=== PATIENT | female | born 2000 | race Two or more races ===

== ENCOUNTER → 2022-05-05 14:04 | Outpatient (BNVA) | payer OTHER, SELFPAY | PROVIDERS: PCP Family Medicine; Visit Provider Student in an Organized Health Care Education/Training Program | DX: M25.541 Pain in joints of right hand (principal); M79.18 Myalgia, other site | CPT/HCPCS: 99202 ==

== ENCOUNTER → 2022-07-09 09:35 | Outpatient (BNVA) | payer OTHER, SELFPAY | PROVIDERS: PCP Family Medicine; Visit Provider Student in an Organized Health Care Education/Training Program | DX: M25.542 Pain in joints of left hand (principal); L40.50 Arthropathic psoriasis, unspecified | CPT/HCPCS: 99212 ==

== ENCOUNTER 2023-03-19 16:02 | Outpatient (AMB) | payer OTHER, SELFPAY ==
[2023-03-19 16:06] VITALS: BP 144/82; PULSE 88; TEMP 36.9; O2SAT 98; BMI 48.7
--- NOTE | 2023-03-19 16:06 | MHC.OFFVIS ---
Intake Vital Signs 03/19/23 16:06 Height 5 ft 7 in Weight 310 lb 13.628 oz BMI 48.7 BP 144/82 H Blood Pressure Location Rt brachial Position Sitting Pulse 88 Pulse Source Pulse Oximeter Temp 98.4 F Temp Source Skin Pulse Oximetry (%) 98 Intake Visit Reasons: polyarthralgia Intake Note: Pt seen today for polyarthralgia. Did labs at [place]. States she has more arthritis in spine History Department Chair Required: No Accompanied by: Self / Same As Patient Allergies ketorolac [From Toradol] Adverse Reaction (Intermediate, Verified 03/19/23 16:17) Rash Medication List - Last Reconciled 03/19/23 by Marah De Leon MD albuterol sulfate 90 mcg/actuation 2 puffs inhalation Q4H PRN aripiprazole 15 mg PO DAILY cholecalciferol (vitamin D3) (Vitamin D3) PO dextroamphetamine-amphetamine 10 mg 1 tab PO BID ferrous sulfate 325 mg PO DAILY fluticasone propionate 110 mcg/actuation (Flovent HFA) 0 mcg inhalation levonorgestrel-ethinyl estrad 0.15 mg-30 mcg (91) 1 tab PO DAILY levothyroxine 75 mcg PO DAILY norgestimate-ethinyl estradiol 0.18/0.215/0.25 mg-35 mcg (28) (Tri-Estarylla) 1 tab PO DAILY pantoprazole 40 mg PO DAILY sertraline 150 mg PO DAILY sucralfate 1 g PO BID HPI HPI Comments History of Present Illness Details Patient returns for follow-up. She states that last month she was prescribed a prednisone taper starting at 30 mg daily for her arthritis symptoms. She states that it gave her 100% relief especially when she was taking the 30 mg. She continues to have intermittent pain in her knees, fingers, she also gets sharp pain in her muscles. Initial history: This is a 21-year-old female with a past medical history of anxiety, depression, morbid obesity, allergic rhinitis, hypothyroidism, PTSD, SVT, patellofemoral syndrome, rosacea presents for evaluation of inflammatory symptoms and diffuse pain. Condition started about 2 years ago with pain in multiple areas including her back, arms, knees. She also reports easy bruising and random rashes of her lower extremities. She has difficulty keeping her arms up while showering so she only showers once a week. She has fatigue and weakness. She was evaluated by pain management for her back pain and breast reduction surgery was suggested. Patient has an appointment with a plastic surgeon [facility] Medical History (Updated 03/19/23 @ 16:56 by Marah De Leon MD) Allergic rhinitis Anxiety Asthma Depression Hypothyroid Iron deficiency Joint pain in fingers of left hand Joint pain in fingers of right hand Morbid obesity Patellofemoral syndrome Psoriatic arthritis PTSD (post-traumatic stress disorder) Rosacea SVT (supraventricular tachycardia) Surgical History Hx of colonoscopy Family History (Updated 03/19/23 @ 16:51 by Marah De Leon MD) Mother Diabetes Arthritis Psoriasis Father Hypertension Maternal Grandmother Colon cancer Maternal Grandfather Myocardial infarction Hypertension Social History Alcohol intake: current Alcohol intake frequency: holidays/special occasions only Patient Tobacco Use Status: Former Tobacco user Tobacco use type: Smokeless Tobacco e-Cigarette/Vaping Use: Currently Using Current occupational status: disabled Review of Systems [facility] Reports back pain, Reports myalgias, Reports arthralgias, Reports joint swelling and Reports stiffness Skin/Breast Reports unusual bruising Physical Exam Vital Signs: Last Vital Signs Temp 98.4 F 03/19/23 16:06 Pulse 88 03/19/23 16:06 BP 144/82 H 03/19/23 16:06 Pulse Ox 98 03/19/23 16:06 BMI result Body Mass Index 48.7 Const General: cooperative, healthy appearing and comfortable Nutritional Appearance: obese morbidly obese Orientation/consciousness: patient oriented x3 Limitations: no limitations HEENT Head: Yes normocephalic and Yes atraumatic Resp Effort & Inspection: normal respiratory effort and able to speak in complete sentences Skin General skin exam: no rashes or lesions noted Neuro General: patient oriented x3 Extrem Other: Left middle and ring finger extensor tendon tenderness with no swelling Right wrist pain with full flexion Bilateral elbow pain with full flexion extension Bilateral knee warmth and pain with full flexion and extension No ankle swelling or tenderness Bilateral dorsal foot tenderness without swelling Negative MTP tenderness, negative MTP squeeze test bilaterally Few fibromyalgia tender points Results Reviewed Results Reviewed: iron level 44 (44-150) TIBC 438 (250-450) Iron saturation 10% (15-50%) Ferritin 20 (8-252) WBC 13.1 Hemoglobin 13.1 MCV 91.8 RDW 12.7 Platelet count 307 Antithyroid peroxidase antibody 33 <60 Free T4 1.25 (0.7-1.8) Normal pelvic ultrasound CRP 0.9 (<0.5) ESR 23 (0-20) Kathryn 1 antibody 3 <20 Anti DNA 31 (<200) CPK 88 (22 - 269) Lyme screen negative RF/ccp negative Uric acid 5.4 CHAZ negative Sterling/CONSTRUCTION ENGINEER/SSA/SSB/C3/C4 all negative/normal Assessment & Plan Assessment & Plan (1) Psoriatic arthritis: Code(s): L40.50 - Arthropathic psoriasis, unspecified Plan: This is a? 22-year-old female presents for evaluation of diffuse joint pain.? Comprehensive serology is unremarkable, she has mildly elevated inflammatory markers. On exam patient has multiple tender joints, symptoms dramatically improved with prednisone taper. Her mother has psoriasis. Clinical picture consistent with new onset psoriatic arthritis. Will need to start DMARDs. Discussed risks and benefits of methotrexate. Patient agreed to proceed. Start methotrexate 15 mg once weekly for 2 weeks then 20 mg weekly. Folic acid 1 mg daily Hepatitis panel - -ve 2021. Will check a T spot Labs before next visit in 2 months (2) terminal operations supervisor methotrexate user: Code(s): Z79.631 - terminal operations supervisor (current) use of antimetabolite agent Plan: Side effects of methotrexate were discussed with the patient in detail including oral ulcers, elevated LFTs, abdominal discomfort, and possible pancytopenia is. Will monitor patient for side effects with frequent lab work. Advised patient to take folic acid daily to prevent complications of methotrexate. Patient drinks 3-4 alcoholic beverages in a month. Is not currently sexually active and no plans on getting any time soon (3) Fibromyalgia, primary: Code(s): M79.7 - Fibromyalgia Plan: Discussed management of fibromyalgia with patient. Is a noninflammatory, non-autoimmune central afferent processing disorder leading to a diffuse pain syndrome. Patient follows up regularly with a psychiatrist and psychotherapist. Advised patient to consider a referral for a sleep study from her PCP to evaluate for underlying DUSTIN. Discuss CBT for sleep with psychotherapist. Patient goes to the gym once a week and does weightlifting and cardio exercises for 90 minutes. Advised patient to try to increase the frequency of her exercise. Plan I spent 30 minutes reviewing patient's chart, evaluating patient, ordering diagnostic workup, counseling patient and documenting in the chart Orders: Orders Comprehensive Met. Panel 2 Months L40.50 - Arthropathic psoriasis, unspecified C Reactive Protein 2 Months L40.50 - Arthropathic psoriasis, unspecified Complete Blood Count Auto Diff 2 Months L40.50 - Arthropathic psoriasis, unspecified Erythrocyte Sedimentation Rate 2 Months L40.50 - Arthropathic psoriasis, unspecified T Spot TB 2 Months Z11.7 - Encounter for testing for latent tuberculosis infection Medications: New methotrexate sodium Take 6 tabs by mouth once weekly for 2 weeks then 8 tabs once weekly 64 tabs 0RF folic acid 1 mg PO DAILY 90 tabs 1RF Coding Level of Care Code Est Pt Level 4 (05496) Diagnoses Psoriatic arthritis L40.50 MCC methotrexate user Z79.631 Fibromyalgia, primary M79.7
== END 2023-03-19 16:45 | disposition home or self-care (01) ==
PROVIDERS: PCP Family Medicine; Visit Provider Student in an Organized Health Care Education/Training Program
DX: L40.50 Arthropathic psoriasis, unspecified (principal); Z79.631 Long term (current) use of antimetabolite agent; M79.7 Fibromyalgia
CPT/HCPCS: 99214

== ENCOUNTER → 2023-03-19 16:02 | Outpatient (BNVA) | payer OTHER, SELFPAY | PROVIDERS: PCP Family Medicine; Visit Provider Student in an Organized Health Care Education/Training Program | DX: L40.50 Arthropathic psoriasis, unspecified (principal); M79.7 Fibromyalgia; Z79.631 Long term (current) use of antimetabolite agent | CPT/HCPCS: 99212 ==

== ENCOUNTER 2023-04-24 10:40 | Outpatient (REF) | payer OTHER, SELFPAY ==
[2023-04-24 10:57] LABS: MANUAL DIFF FLAG NO
[2023-04-24 11:11] LABS: Basophils Absolute Auto 0.1 X10*3/uL (0.0-0.2); Basophils Percent Auto 0.7 % (0-2); Eosinophils Absolute Auto 0.2 X10*3/uL (0.0-0.4); Eosinophils Percent Auto 3.1 % (0-4); Imm Gran Abs Auto 0.02 X10*3/uL (0.00-0.03); Imm Gran Pct Auto 0.3 % (0.0-0.4); Lymphocytes Percent Auto 30.1 % (20-40); Mean Corpuscular HGB Conc 32.5 g/dl (31.0-35.0); Mean Corpuscular Hemoglobin 30.3 pg (27.0-33.0); Mean Corpuscular Volume 93.2 fL (80.0-98.0); Mean Platelet Volume 10.8 fL (9.4-12.3); Monocytes Absolute Auto 0.4 X10*3/uL (0.1-1.2); Monocytes Percent Auto 6.3 % (2-11); Neutrophils Percent Auto 59.5 % (45-73); Platelet Count 231 X10*3/uL (160-400); Red Blood Count 4.29 X10*6/uL (4.20-5.50); Red Cell Distribution Width 12.1 % (11.0-16.0); White Blood Count 6.7 X10*3/uL (4.8-10.8)
[2023-04-24 11:51] LABS: Alanine Aminotransferase 16 U/L (0-31); Albumin Level 3.8 g/dL (3.5-5.0); Alkaline Phosphatase 67 U/L (39-117); Anion Gap 16 (12-20); Aspartate Amino Transferase 14 U/L (5-31); Bilirubin Total 0.3 mg/dL (0.0-1.0); Blood Urea Nitrogen 11 mg/dL (9-16); C Reactive Protein 2.03 mg/dL (< or = 0.50); Calcium 8.8 mg/dL (8.4-10.2); Carbon Dioxide 19 mmol/L (22-29); Chloride 108 mmol/L (96-108); Estimated Glomerular Filt Rate > 60; Glucose Random 105 mg/dL (60-115); Potassium 4.2 mmol/L (3.3-5.1); Sodium 139 mmol/L (135-145); Total Protein 6.8 g/dL (6.5-8.0)
[2023-04-24 12:12] LABS: Erythrocyte Sedimentation Rate 38 MM/HR (0-20)
== END 2023-04-24 10:41 | disposition home or self-care (01) ==
LOC: HO.LAB 10:40
PROVIDERS: PCP Family Medicine; Visit Provider Student in an Organized Health Care Education/Training Program
DX: L40.50 Arthropathic psoriasis, unspecified (principal)
CPT/HCPCS: 36415; 80053; 85025; 85652; 86140

== ENCOUNTER 2023-08-04 09:49 | Outpatient (REF) | payer OTHER, SELFPAY ==
[2023-08-04 10:05] LABS: MANUAL DIFF FLAG NO
[2023-08-04 10:51] LABS: Basophils Absolute Auto 0.1 X10*3/uL (0.0-0.2); Basophils Percent Auto 0.6 % (0-2); Eosinophils Absolute Auto 0.4 X10*3/uL (0.0-0.4); Eosinophils Percent Auto 5.5 % (0-4); Hematocrit 40.1 % (37.0-47.0); Hemoglobin 13.3 g/dl (12.0-16.0); Imm Gran Abs Auto 0.03 X10*3/uL (0.00-0.03); Imm Gran Pct Auto 0.4 % (0.0-0.4); Lymphocytes Absolute Auto 3.1 X10*3/uL (1.2-4.9); Lymphocytes Percent Auto 38.6 % (20-40); Mean Corpuscular HGB Conc 33.2 g/dl (31.0-35.0); Mean Corpuscular Hemoglobin 31.3 pg (27.0-33.0); Mean Corpuscular Volume 94.4 fL (80.0-98.0); Mean Platelet Volume 10.8 fL (9.4-12.3); Monocytes Absolute Auto 0.6 X10*3/uL (0.1-1.2); Monocytes Percent Auto 7.1 % (2-11); Neutrophils Absolute Auto 3.9 x10*3/uL (2.0-8.3); Neutrophils Percent Auto 47.8 % (45-73); Platelet Count 277 X10*3/uL (160-400); Red Blood Count 4.25 X10*6/uL (4.20-5.50); Red Cell Distribution Width 12.3 % (11.0-16.0)
[2023-08-04 11:24] LABS: Alanine Aminotransferase 18 U/L (0-31); Albumin Level 3.7 g/dL (3.5-5.0); Alkaline Phosphatase 81 U/L (39-117); Anion Gap 14 (12-20); Aspartate Amino Transferase 14 U/L (5-31); Bilirubin Total 0.1 mg/dL (0.0-1.0); Blood Urea Nitrogen 10 mg/dL (9-16); C Reactive Protein 1.68 mg/dL (< or = 0.50); Carbon Dioxide 19 mmol/L (22-29); Chloride 111 mmol/L (96-108); Estimated Glomerular Filt Rate > 60; Glucose Random 94 mg/dL (60-115); Sodium 140 mmol/L (135-145); Total Protein 6.8 g/dL (6.5-8.0)
[2023-08-04 11:29] LABS: Erythrocyte Sedimentation Rate 25 MM/HR (0-20)
[2023-08-04 11:49] LABS: HBS Num1 1.78 mIU/mL (0-7.99); HBc Num1 0.07 S/CO (0.00-0.79); HBsAGNum1 0.19 S/CO (0.00-0.99); Hepatitis A Antibody IgM 0.15 Index (0-0.79); Hepatitis B Core Antibody Nonreactive (Nonreactive); Hepatitis B Surface Antigen Negative (Negative); ~HepC Num1 0.06 S/CO (0.00-0.79); ~Hepatitis A Antibody IgM Nonreactive (Nonreactive); ~Hepatitis B Surface Antibody NONREACTIVE (Nonreactive); ~Hepatitis C Antibody Nonreactive (Nonreactive)
[2023-08-06 22:33] LABS: TS Negative Control Passed; TS Panel A 0; TS Panel B 0; TS Positive Control Passed; TSpotTB Negative (Negative)
[2023-08-08 16:28] LABS: HLA B27 Negative (Negative)
== END 2023-08-04 09:50 | disposition home or self-care (01) ==
LOC: HO.LAB 09:49
PROVIDERS: PCP Family Medicine; Visit Provider Student in an Organized Health Care Education/Training Program
DX: L40.50 Arthropathic psoriasis, unspecified (principal); M45.9 Ankylosing spondylitis of unspecified sites in spine; Z11.7 Encounter for testing for latent tuberculosis infection; Z11.59 Encounter for screening for other viral diseases; Z79.631 Long term (current) use of antimetabolite agent
CPT/HCPCS: 36415; 80053; 85025; 85652; 86140; 86481; 86704; 86706; 86709; 86803; 86812; 87340

== ENCOUNTER 2023-10-18 14:53 | Outpatient (AMB) | payer OTHER, SELFPAY ==
--- NOTE | 2023-10-18 14:55 | MHC.OFFVIS ---
Intake Vital Signs 10/18/23 15:02 Height 5 ft 7 in Weight 347 lb 0.121 oz BMI 54.3 BP 128/64 Blood Pressure Location Lt radial Position Sitting Pulse 109 H Pulse Source Pulse Oximeter Temp 99.2 F Temp Source Skin Pulse Oximetry (%) 99 Oxygen Delivery Method Room Air Intake Visit Reasons: PsA Intake Note: Patient last seen 03/19/23 presents today for follow up and test results. Pt would like to discuss other PsA tx due to difficulty getting labs done. Rn Clinical Research Required: No Accompanied by: Self / Same As Patient Allergies ketorolac [From Toradol] Adverse Reaction (Intermediate, Verified 10/18/23 14:56) Rash Medication List - Last Reconciled 10/18/23 by Marah De Leon MD albuterol sulfate 90 mcg/actuation 2 puffs inhalation Q4H PRN aripiprazole 15 mg PO DAILY cholecalciferol (vitamin D3) (Vitamin D3) PO dextroamphetamine-amphetamine 10 mg 1 tab PO BID ferrous sulfate 325 mg PO DAILY fluticasone propionate 110 mcg/actuation (Flovent HFA) 0 mcg inhalation levonorgestrel-ethinyl estrad 0.15 mg-30 mcg (91) 1 tab PO DAILY levothyroxine 75 mcg PO DAILY norgestimate-ethinyl estradiol 0.18/0.215/0.25 mg-35 mcg (28) (Tri-Estarylla) 1 tab PO DAILY pantoprazole 40 mg PO DAILY sertraline 150 mg PO DAILY sucralfate 1 g PO BID HPI HPI Comments History of Present Illness Details 23-year-old female with suspected psoriatic arthritis returns for follow-up. She states that she took methotrexate for 2 months until she ran out. She states that she could not get the blood work done as she was told that her liver enzymes need to be done in the morning and she does not have a ride to do blood work in the morning. She would like to discuss hypermobility. She states that she feels hypermobile. She does not recall any specific joint dislocation but she feels that her hip pops in and out of place. She gets triggering of her thumbs and index fingers bilaterally at least once a week. Initial history: This is a 21-year-old female with a past medical history of anxiety, depression, morbid obesity, allergic rhinitis, hypothyroidism, PTSD, SVT, patellofemoral syndrome, rosacea presents for evaluation of inflammatory symptoms and diffuse pain. Condition started about 2 years ago with pain in multiple areas including her back, arms, knees. She also reports easy bruising and random rashes of her lower extremities. She has difficulty keeping her arms up while showering so she only showers once a week. She has fatigue and weakness. She was evaluated by pain management for her back pain and breast reduction surgery was suggested. Patient has an appointment with a plastic surgeon [facility] Medical History (Updated 10/18/23 @ 15:26 by Marah De Leon MD) Joint pain in fingers of left hand Psoriatic arthritis Joint pain in fingers of right hand Rosacea Allergic rhinitis Iron deficiency Patellofemoral syndrome SVT (supraventricular tachycardia) PTSD (post-traumatic stress disorder) Morbid obesity Depression Anxiety Asthma Hypothyroid Surgical History Hx of colonoscopy Family History Mother Diabetes Arthritis Psoriasis Father Hypertension Maternal Grandmother Colon cancer Maternal Grandfather Myocardial infarction Hypertension Social History Alcohol intake: current Alcohol intake frequency: holidays/special occasions only Patient Tobacco Use Status: Former Tobacco user Tobacco use type: Smokeless Tobacco e-Cigarette/Vaping Use: Currently Using Current occupational status: disabled Review of Systems [facility] Reports back pain, Reports myalgias, Reports arthralgias, Reports joint swelling and Reports stiffness Skin/Breast Reports unusual bruising Physical Exam Const General: cooperative, healthy appearing and comfortable Nutritional Appearance: obese morbidly obese Orientation/consciousness: patient oriented x3 Limitations: no limitations HEENT Head: Yes normocephalic and Yes atraumatic Resp Effort & Inspection: normal respiratory effort and able to speak in complete sentences Skin Other: Erythematous cheeks bilaterally A square shaped patch on medial aspect of right rocha measuring approximately 3 x 3 cm. Psoriasis versus eczema Neuro General: patient oriented x3 Extrem Other: Triggering of right 5th finger No flexor or extensor tendon tenderness today Left wrist pain with full flexion Bilateral hyperextension of both elbows Positive thumb sign bilaterally Bilateral genu valgus Patient able to put her palms on the floor with knees straight No ankle swelling or tenderness Bilateral dorsal foot tenderness without swelling Negative MTP tenderness, negative MTP squeeze test bilaterally Few fibromyalgia tender points Results Reviewed Results Reviewed: iron level 44 (44-150) TIBC 438 (250-450) Iron saturation 10% (15-50%) Ferritin 20 (8-252) WBC 13.1 Hemoglobin 13.1 MCV 91.8 RDW 12.7 Platelet count 307 Antithyroid peroxidase antibody 33 <60 Free T4 1.25 (0.7-1.8) Normal pelvic ultrasound CRP 0.9 (<0.5) ESR 23 (0-20) Kathryn 1 antibody 3 <20 Anti DNA 31 (<200) CPK 88 (22 - 269) Lyme screen negative RF/ccp negative Uric acid 5.4 CHAZ negative Sterling/COMPUTER SYSTEMS AUDITOR/SSA/SSB/C3/C4 all negative/normal Assessment & Plan Assessment & Plan (1) Psoriatic arthritis: Code(s): L40.50 - Arthropathic psoriasis, unspecified Plan: This is a? 23-year-old female presents for evaluation of diffuse joint pain.? Comprehensive serology is unremarkable, she has mildly elevated inflammatory markers. On exam patient has multiple tender joints, symptoms dramatically improved with prednisone taper. Her mother has psoriasis. Last visit I prescribed methotrexate, patient stated that she could not get blood work done as she was told it needs to be done in the a.m. and she does not have a ride in the a.m. she took methotrexate for 1-2 months and does not feel that it provided much benefit. At this point, I can not prescribe DMARDs without monitor labs. Her symptoms today are quite minimal, there are no swollen joints. Follow-up as needed (2) Trigger finger: Code(s): M65.30 - Trigger finger, unspecified finger Qualifiers: Trigger finger location: unspecified finger Laterality: unspecified laterality Qualified Code(s): M65.30 - Trigger finger, unspecified finger Plan: Triggering of bilateral thumbs and bilateral index fingers. Discussed nature of trigger finger. Referred patient to occupational therapy. Discussed ring splints (3) Hypermobility syndrome: Code(s): M35.7 - Hypermobility syndrome Plan: Referred to PT Plan I spent 25 minutes reviewing patient's chart, evaluating patient, placing orders, counseling patient and documenting in the chart Orders: Orders PT Evaluation and Treatment Today M35.7 - Hypermobility syndrome OT Evaluation and Treatment Today M65.30 - Trigger finger, unspecified finger Coding Level of Care Code Est Pt Level 4 (65549) Diagnoses Psoriatic arthritis L40.50 Trigger finger, unspecified finger, unspecified laterality M65.30 Trigger finger location: unspecified finger Laterality: unspecified laterality Hypermobility syndrome M35.7
[2023-10-18 15:02] VITALS: BP 128/64; PULSE 109; TEMP 37.3; O2SAT 99; BMI 54.3
== END 2023-10-18 15:28 | disposition home or self-care (01) ==
PROVIDERS: PCP Family Medicine; Visit Provider Student in an Organized Health Care Education/Training Program
DX: L40.50 Arthropathic psoriasis, unspecified (principal); M65.30 Trigger finger, unspecified finger; M35.7 Hypermobility syndrome
CPT/HCPCS: 99214

== ENCOUNTER → 2023-10-18 14:53 | Outpatient (BNVA) | payer OTHER, SELFPAY | PROVIDERS: PCP Family Medicine; Visit Provider Student in an Organized Health Care Education/Training Program | DX: M65.30 Trigger finger, unspecified finger (principal); M35.7 Hypermobility syndrome; L40.50 Arthropathic psoriasis, unspecified | CPT/HCPCS: 99212 ==

== ENCOUNTER 2025-03-27 10:04 | Outpatient (AMB) | payer OTHER, SELFPAY ==
--- NOTE | 2025-03-27 10:13 | A.OFFVIS_ITS ---
Vital Signs 03/27/25 10:17 Height 5 ft 7 in Weight 350 lb 1.505 oz BMI 54.8 BP 130/100 H Blood Pressure Location Rt brachial Position Sitting Pulse 108 H Pulse Source Pulse Oximeter Pulse Oximetry (%) 99 Oxygen Delivery Method Room Air Intake Visit Reasons: PsA Intake Note: Patient presents today for an PSa follow up. Accompanied by: Self / Same As Patient Allergies ketorolac (From Toradol) Adverse Reaction (Intermediate, Verified 03/27/25 10:18) Rash Medication List - Last Reconciled 03/27/25 by Rashid Mcknight MD albuterol sulfate 90 mcg/actuation 2 puffs inhalation Q4H PRN cholecalciferol (vitamin D3) (Vitamin D3) PO eszopiclone (Lunesta) 1 mg PO BEDTIME ferrous sulfate 325 mg PO DAILY fluticasone propionate 110 mcg/actuation (Flovent HFA) 0 mcg inhalation fluvoxamine 100 mg PO BEDTIME gabapentin 300 mg PO BEDTIME levonorgestrel-ethinyl estrad 0.15 mg-30 mcg (91) 1 tab PO DAILY levothyroxine 75 mcg PO DAILY pantoprazole 40 mg PO DAILY sertraline 150 mg PO DAILY HPI HPI PsA: Details: She was dx with left buttocks shingles 3 weeks ago. Woke up with neck pain radiating to mid back. She remembered hyperextending left knee at night. She has pain with clicking in left knee for the last 3 days. avoid NSAIDs due to GERD and HH on PPI. No swollen joint. Hypermobility in wrists, fingers and knees. Feels like hips dislocate when she turns over in bed. She can pop it back in place with moving her body. Denies uterus prolapse, aneurysm, valve issues. She was diagnosed with lumbar disc narrowing. She was referred to PT by PCP. Since starting gabapentin prescribed by PCP she has noted improvement in her pain with improved function. She is not taking any Tylenol at this time. [facility] Medical History Fibromyalgia Shingles Joint pain in fingers of left hand Psoriatic arthritis Joint pain in fingers of right hand Rosacea Allergic rhinitis Iron deficiency Patellofemoral syndrome SVT (supraventricular tachycardia) PTSD (post-traumatic stress disorder) Morbid obesity Depression Anxiety Asthma Hypothyroid Surgical History Hx of colonoscopy Family History Mother Diabetes Arthritis Psoriasis Father Hypertension Maternal Grandmother Colon cancer Maternal Grandfather Myocardial infarction Hypertension Social History Alcohol intake: current Alcohol intake frequency: holidays/special occasions only Patient Tobacco Use Status: Former Tobacco user Tobacco use type: Smokeless Tobacco e-Cigarette/Vaping Use: Currently Using Current occupational status: disabled Physical Exam Vital Signs: Last Vital Signs Pulse 108 H 03/27/25 10:17 BP 130/100 H 03/27/25 10:17 Pulse Ox 99 03/27/25 10:17 Oxygen Delivery Method Room Air 03/27/25 10:17 BMI result Body Mass Index 54.8 Const Other: General: Comfortable CVS: RRR Respiratory: clear to auscultation bilaterally. Good respiratory effort Skin: No lesions seen MSK: No tender joints in upper extremities. Normal range of motion of upper extremities. Valgus deformity bilateral knees. Tender to palpate left knee with knee flexion 90 degrees. No crepitus palpated. Left knee is warm. No effusion palpated. Bilateral hip external rotations are normal. No synovitis present. Passive dorsiflexion and hyperextension of the fifth MCP joint beyond 90? 1 1 2. Passive apposition of the thumb to the flexor aspect of t he forearm 1 1 3. Passive hyperextension of the elbow b eyond 10? 0 0 4. Passive hyperextension of the knee beyond 10? 1 1 5. Active forward flexion of the trunk w ith the knees fully extended so that the palms of the hands rest flat on the floor 1 1 TOTAL 8 Assessment & Plan Assessment & Plan (1) Hypermobile Reddy-Danlos syndrome: Comment: Discussed diagnosis and management. Genetic testing for hypermobile EDS does not exist. At this time I am not concerned for more serious forms of EDS. we discussed importance of rehabilitation. Code(s): Q79.62 - Hypermobile Reddy-Danlos syndrome Category: Medical Plan: PT ordered for rehabilitation She will take Tylenol 650 mg 1-2 tablets b.i.d. PRN Baseline labs prior to starting Tylenol ordered Return to clinic in 3 months (2) Lumbar spondylosis: Code(s): M47.816 - Spondylosis without myelopathy or radiculopathy, lumbar region Category: Medical Plan: PT ordered (3) Knee pain, left: Comment: Acute onset. She has clinical signs of early osteoarthritis with valgus deformity. Hypermobile EDS predisposes individuals to early-onset osteoarthr itis. Code(s): M25.562 - Pain in left knee Category: Medical Qualifiers: Chronicity: acute Qualified Code(s): M25.562 - Pain in left knee Plan: Left knee x-ray ordered Start Tylenol 650 mg 1-2 tablets twice a day Baseline labs prior to starting Tylenol ordered Avoid oral NSAIDs due to history of uncontrolled GERD and hiatal hernia on PPI PT ordered for knee strengthening We discussed importance of bracing for improved stability. She will try compression sleeve. I will hold off in prescribing hinged brace at this visit Return to clinic in 3 months (4) Psoriasis: Comment: History of psoriasis affecting right rocha. Resolved. There are no clinical signs of psoriatic arthritis at this time. Code(s): L40.9 - Psoriasis, unspecified Category: Medical Plan: Monitor clinically for psoriatic arthritis Orders: Orders Alanine Aminotransferase Today M35.7 - Hypermobility syndrome Creatinine Today M35.7 - Hypermobility syndrome XR knee LT 2V Today Q79.62 - Hypermobile Reddy-Danlos syndrome PT Evaluation and Treatment Today M25.562 - Pain in left knee, M47.816 - Spondylosis without myelopathy or radiculopathy, lumbar region, Q79.62 - Hyperm obile Reddy-Danlos syndrome, S73.004A - Unspecified dislocation of right hip, initial encounter, S73.005A - Unspecified dislocation of left hip, initial encounter Aspartate Amino Transferase Today M35.7 - Hypermobility syndrome Coding Level of Care Code Est Pt Level 4 (43172) Complex EM visit Add On G2211 Diagnoses Hypermobile Reddy-Danlos syndrome Q79.62 Lumbar spondylosis M47.816 Acute pain of left knee M25.562 Chronicity: acute Psoriasis L40.9
[2025-03-27 10:17] VITALS: BP 130/100; PULSE 108; O2SAT 99; BMI 54.8
--- OUTSIDE RECORDS SUMMARY | 2025-03-27 11:27 | XMS_ITS | Clinical Summary ---
Author Organization [facility] Facility Address [address] [place] [id number] Care Team Providers Care Finance Intern Name Role Phone Unavailable Primary Care Provider Unavailabl e Social History Tobacco Use Types Packs/Day Years Used Date Smoking Tobacco: Never Assessed Comments Unknown Sex and Gender Information Value Date Recorded Sex Assigned at Not on file Legal Sex Female 2:19 PM EDT Gender Identity Not on file Sexual Orientation Not on file Plan of Treatment Health Maintenance Due Date Last Done Comments Hepatitis B Vaccine (1 of 3 - 19+ 3-dose series) 2019 Influenza Vaccine (#1) 2025 Pneumococcal Vaccine: Peds ( 0 to 5 Years) and At-Risk Patients (6 to 49 Years) Aged Out No longer eligible b ased on patient's age to complete this topic [place] [address] [place] [address] Medicaid
--- OUTSIDE RECORDS SUMMARY | 2025-03-27 11:27 | XMS_ITS | Encounter Summary ---
Author Organization [facility] Address [address] [place], [place] [id number] Phone Care Team Providers Care Art Specialist Name Role Phone Jessica Goss DO Primary Care Provider Unavaila ble Reason for Visit * Reason Comments Med Refill Encounter Details Date Type Department Care Team ([facility] st Contact Info) Description 04/09/2018 Refill [facility] [address] [facility] [place] [address] Cheryl Walters MD [address] [place] [address] Dysuria Social History Tobacco Use Types Packs/Day Years Used Date Smoking Tobacco: Every Day Smokeless Tobacco: Current Comments:marijuanna Comments Unknown Sex and Gender Information Value Date Recorded Sex Assigned at Not on file Legal Sex Female 6:36 PM EDT Gender Identity Not on file Sexual Orientation Not on file documented as of this encounter Plan of Treatment Not on file documented as of this encounter Visit Diagnoses Diagnosis Dysuria documented in this encounter Care Teams Art Specialist Relationship Specialty Start Date End Date Jessica Goss DO PCP - General Pediatrics 02/09/19 documented as of this encounter
--- OUTSIDE RECORDS SUMMARY | 2025-03-27 11:27 | XMS_ITS | Clinical Summary ---
Author Organization [facility] Address [address] [place] [address] Care Team Providers Care Blow Molding Machine Tender Name Role Phone Benjamin Hahn MD Primary Care Provider [phone] Allergies Active Allergy Reactions Criticality Noted Date Comments Ketorolac Tromethamine Rash Low 06/30/2022 Medications Medication Sig Dispensed Refills Start Date End Date Status Norgestim-Eth Estrad Triphasic 0.18/0.215/0.25 MG-25 MCG TABS Take by mouth daily. 0 Active vitamin D3 (cholecalciferol) 10 MCG (400 UNIT) tablet Take by mouth daily. 0 Active sucralfate (CARAFATE) 1 g tablet Take 1 tablet (1 g total) by mouth 2 (two) times a day before breakfast and dinner. Take on an empty stomach 0 Active sertraline (ZOLOFT) 100 MG tablet Take 2 tablets (200 mg total) by mouth daily. 0 Active levothyroxine (SYNTHROID) tablet 50 mcg Take 1 tablet (50 mcg total) by mouth every morning on an empty stomach. 0 Active Cholecalciferol 1.25 MG (98274 UT) TABS Take by mouth. 4 Tabs once a week 0 Active ferrous sulfate 325 (65 FE) MG tablet Take 1 tablet (325 mg total) by mouth every morning with breakfast. 0 Active Albuterol Sulfate, sensor, (ProAir Digihaler) 108 (90 Base) MCG/ACT AEPB Inhale into the lungs. 2 puffs into lungs every 4 hours as needed for cough or wheezing. 0 Active Active Problems Problem Noted Date Diagnosed Date Easy bruising 07/03/2022 Social History Tobacco Use Types Packs/Day Years Used Date Smoking Tobacco: Never Assessed Sex and Gender Information Value Date Recorded Sex Assigned at Not on file Gender Identity Not on file Sexual Orientation Not on file Job Start Date Occupation Industry Not on file Not on file Not on file Last Filed Vital Signs Vital Sign Reading Time Taken Comments Blood Pressure 143/75 07/30/2022 3:09 PM EST Pulse 84 07/30/2022 3:09 PM EST Temperature 36.8 C (98.2 F) 07/30/2022 3:09 PM EST Respiratory Rate - - Oxygen Saturation 98% 07/30/2022 3:09 PM EST Inhaled Oxygen Concentration - - Weight 136.1 kg (300 lb) 07/30/2022 3:09 PM EST Height 170.2 cm (5' 7 ) 07/30/2022 3:09 PM EST Body Mass Index 46.99 07/30/2022 3:09 PM EST Plan of Treatment Health Maintenance Due Date Last Done Comments Hepatitis B Vaccines (1 of 3 - 3-dose series) 2000 Hepatitis C Screening 2000 Depression Screening 2012 Gonorrhea and Chlamydia Screening 2013 Preventative Health Evaluation 2018 DTap / Tdap / Td (1 - Tdap) 2019 Cervical Cancer Screening (Pap Smear) 2021 COVID-19 Vaccine (3 - 2024-2 6 season) 2025 09/19/2020, 09/03/2020 Influenza Vaccine (#1) 2025 08/25/2019 Pneumococcal Vaccine Aged Out No long er eligible based on patient's age to complete this topic RSV Ped < 20 months Aged Out No longe r eligible based on patient's age to complete this topic Care Teams Blow Molding Machine Tender Relationship Specialty Start Date End Date Benjamin Hahn MD [address] [place] [id number] PCP - General Hospitalist Medicine 04/10/22
--- OUTSIDE RECORDS SUMMARY | 2025-03-27 11:27 | XMS_ITS | Encounter Summary ---
Author Organization [facility] Address [address] [place] [phone] Phone Care Team Providers Care Fashion Patternmaker Name Role Phone Jessica Goss DO Primary Care Provider Unavaila ble Encounter Details Date Type Department Care Team (Late st Contact Info) Description 12/08/2010 Conversion Encounter [facility] [address] [place] [address] Social History Tobacco Use Types Packs/Day Years Used Date Smoking Tobacco: Never Assessed Comments Unknown Sex and Gender Information Value Date Recorded Sex Assigned at Not on file Legal Sex Female 6:36 PM EDT Gender Identity Not on file Sexual Orientation Not on file documented as of this encounter Plan of Treatment Not on file documented as of this encounter Visit Diagnoses Not on filedocumented in this encounter Care Teams Fashion Patternmaker Relationship Specialty Start Date End Date Jessica Goss DO PCP - General Pediatrics 02/09/19 documented as of this encounter
--- OUTSIDE RECORDS SUMMARY | 2025-03-27 11:27 | XMS_ITS ---
Author Name [facility] Organization Unknown Care Team Organization Name Specialty Phone Email Start Date End Da te [facility] HAYDEN BASURTO Primary Care christi @[email or web address] 01/01/2023 4 [facility] Chiquita, CAROLEE Primary Care 11/30/202202/23 4 [facility] Benjamin Hahn Primary Care 06/02/202202/23 4
--- OUTSIDE RECORDS SUMMARY | 2025-03-27 11:27 | XMS_ITS | Clinical Summary ---
Author Organization [facility] Address [address] [place] [phone] Phone Care Team Providers Care Manager Engagement Name Role Phone Pradeep Villanueva MD Primary Care Provider Allergies No known active allergies Medications No known medications Active Problems No known active problems Social History Tobacco Use Types Packs/Day Years Used Date Smoking Tobacco: Every Day Smokeless Tobacco: Never Alcohol Use Standard Drinks/Week Comments Not Currently 0 (1 standard drink = 0.6 oz pur e alcohol) Education Answer Date Recorded Are you interested in more education? Not on kerry e 11/20/2022 Are you concerned about learning? Not on file 11/20/2022 No 11/20/2022 No 11/20/2022 Digital Access Answer Date Recorded No 12/19/2022 No 12/19/2022 No 12/19/2022 Reliable internet access at home? Not on file 12/19/2022 Device with a working camera? Not on file Comments Unknown Sex and Gender Information Value Date Recorded Sex Assigned at Female 05/18/2020 5:55 PM EDT Legal Sex Female 5:39 PM EDT Gender Identity Female 05/18/2020 5:55 PM EDT Sexual Orientation Not on file Last Filed Vital Signs Vital Sign Reading Time Taken Comments Blood Pressure 140/80 05/18/2020 10:00 PM EDT Pulse 100 05/18/2020 10:00 PM EDT Temperature 37.4 C (99.3 F) 05/18/2020 5:53 PM EDT Respiratory Rate 20 05/18/2020 10:00 PM EDT Oxygen Saturation 98% 05/18/2020 10:00 PM EDT Inhaled Oxygen Concentration - - Weight 125.6 kg (277 lb) 05/18/2020 5:53 PM EDT Height 170.2 cm (5' 7 ) 05/18/2020 5:53 PM EDT Body Mass Index 43.38 05/18/2020 5:53 PM EDT Plan of Treatment Health Maintenance Due Date Last Done Comments DEPRESSION SCREENING 2012 SMOKING Hx and SMOKELESS TOBACCO SCREENING 2013 HPV VACCINES (1 - 3-dose series) 2015 CHLAMYDIA SCREENING 2016 HEPATITIS A VACCINES (2 of 2 - 2-dose series) 01/12/2018 07/14/2017 HEPATITIS C SCREENING 2018 HIV ONE-TIME SCREENING (18-65 YEARS) 2018 PNEUMOCOCCAL VACCINES (0-49 years) (1 of 2 - PCV) 2019 07/16/2003, 01/17/2001, 2000, Additional history exists PAP SMEAR 2021 Adult Td,Tdap Booster 09/28/2021 09/29/2011 COVID-19 VACCINE ( season) 2024 09/19/2020, 09/03/2020 HIB VACCINES Completed 10/05/2001, 12/25, 2000, Additional history exists MENINGOCOCCAL VACCINES (ACWY) Completed 07/14/2017, 09/29/2011 MENINGOCOCCAL VACCINES (B) Aged Out N o longer eligible based on patient's age to complete this topic Medical Devices Not on file Insurance [employer] Member Subscriber Plan / Payer (Ef fective 2020-Present) Name:RolaCoretta Relation to Subscriber:Self Name:RolaCoretta Payer ID:[id number] Group ID:[id number] Type:Medicaid Address: [place] [id number] [employer] Care Teams Manager Engagement Relationship Specialty Start Date End Date Pradeep Villanueva MD PCP - General Internal Medicine 05/18/20 Additional Source Comments The information contained in this document represents components of the legal health record. It is not the complete legal health record.[facility]
--- OUTSIDE RECORDS SUMMARY | 2025-03-27 11:27 | XMS_ITS | Clinical Summary ---
Author Organization [facility] [address] [place] [address] [place] [phone] Phone Care Team Providers Care Hat Braider Name Role Phone Aly Gayle MD Primary Care Pr ovider Allergies Active Allergy Reactions Criticality Noted Date Comments Ketorolac 12/31/2022 Other Reaction(s): Rash/Dermatitis [place] Flavor 01/29/2023 Other Reaction(s): Hives/Urticaria Pineapple 01/29/2023 Other Reaction(s): Hives/Urticaria Medications cariprazine (Vraylar) 4.5 mg capsule Take 1 Capsule by mouth daily. 05/15/20 24 Active fluticasone furoate (Arnuity Ellipta) 100 mcg/actuation blister with device inhalerIndicati ons:Mild intermittent asthma without complication Inhale 1 puff by mouth 1 (one) time each day. 1 each 1 09/28/19 25 Active albuterol HFA (Ventolin HFA) 90 mcg/actuation inhalerIndicati ons:Mild intermittent asthma without complication Inhale 1 puff by mouth every 6 (six) hours if needed for wheezing. 6.7 g 1 09/28/19 25 Active dexmethylphenid ate XR (FOCALIN XR) 40 mg 24 hr capsule Take 1 capsule (40 mg total) by mouth 1 (one) time each day. Do not crush, chew, or split. Max Daily Amount: 40 mg Active atomoxetine (STRATTERA) 40 mg capsule Take 1 capsule (40 mg total) by mouth 1 (one) time each day. Swallow capsule whole; do not open. If opened accidentally, do not touch eyes; wash hands immediately (product is an eye irritant). Active zolpidem CR (AMBIEN CR) 6.25 mg CR tablet Take 1 tablet (6.25 mg total) by mouth at bedtime. Do not crush, chew, or split. Max Daily Amount: 6.25 mg Active fluvoxaMINE (LUVOX) 50 mg tablet Take 1 tablet (50 mg total) by mouth at bedtime. Active levonorgestrel- ethinyl estradiol (SEASONALE) 0.15 mg-30 mcg (91) per tablet TAKE 1 TABLET BY MOUTH DAILY FOR 364 DAYS. 91 tablet 3 01/17/20 25 Active DULoxetine (CYMBALTA) [address] capsule Take 1 capsule (30 mg total) by mouth 2 (two) times a day. 01/11/20 25 Active gabapentin (NEURONTIN) 300 mg capsuleIndicati ons:Osteoarthri tis of spine with radiculopathy, lumbar region Take 1 capsule (300 mg total) by mouth at bedtime. 90 each 01/19/20 25 025 Active cyclobenzaprine (FLEXERIL) 10 mg tabletIndicatio ns:Osteoarthrit is of spine with radiculopathy, lumbar region Take 1 tablet (10 mg total) by mouth at bedtime as needed for muscle spasms. 90 tablet 01/19/20 25 025 Active levothyroxine (SYNTHROID, LEVOTHROID) 100 mcg tabletIndicatio ns:Hypothyroidi sm due to Tomasz's thyroiditis TAKE 1 TABLET BY MOUTH ON MONDAYS THROUGH SATURDAYS AND 1&/2 TABLETS ON SUNDAYS ONLY. 94 tablet 1 01/19/20 25 Active Vitamin D3 50 mcg (2,000 unit) tablet TAKE 2 TABLETS BY MOUTH EVERY DAY 180 tablet 03/05/20 25 Active pantoprazole (PROTONIX) 40 mg EC tabletIndicatio ns:Gastroesopha geal reflux disease without esophagitis Take 1 tablet (40 mg total) by mouth 1 (one) time each day. Do not crush, chew, or split. 90 each 1 09/28/19 25 025 Vitamin D3 50 mcg (2,000 unit) tablet TAKE 2 TABLETS BY MOUTH EVERY DAY 180 tablet 12/09/19 25 025 Discontinued Active Problems Problem Noted Date Diagnosed Date Osteoarthritis of spine with radiculopathy, lumb ar region 01/18/2025 Assessment & Plan (01/18/2025 8:07 AM EDT): Will trial gabapentin 300 mg nightly. Counseled on possible side effects of the medication. She will continue with the Flexeril as needed and duloxetine which was prescribed by urgent care. She will call to make an appointment with physiatry Orders: gabapentin (NEURONTIN) 300 mg capsule; Take 1 capsule (300 mg total) by mouth at bedtime. cyclobenzaprine (FLEXERIL) 10 mg tablet; Take 1 tablet (10 mg total) by mouth at bedtime as needed for muscle spasms. Asthma 07/24/2024 Assessment & Plan (09/27/2024 7:59 AM EST): Start Arnuity daily and continue albuterol as needed Orders: fluticasone furoate (Arnuity Ellipta) 100 mcg/actuation blister with device inhaler; Inhale 1 puff by mouth 1 (one) time each day. albuterol HFA (Ventolin HFA) 90 mcg/actuation inhaler; Inhale 1 puff by mouth every 6 (six) hours if needed for wheezing. Telogen effluvium 07/24/2024 Attention deficit hyperactivity disorder (ADHD) 05/15/2024 Bipolar affective disorder, current episode mixed ([facility] V24, [facility] V28) 05/15/2024 Assessment & Plan (09/28/2024 1:02 PM EST): Continue follow-up with psychiatry. Continue Vraylar daily Will send to PT 1 pool to see if they can help patient with transportation issues. Mixed hyperlipidemia 05/15/2024 Assessment & Plan (09/27/2024 7:59 AM EST): Will update fasting labs. Orders: Lipid panel with reflex to direct LDL; Future Gastroesophageal reflux disease 08/19/2023 Assessment & Plan (09/27/2024 7:59 AM EST): Resume pantoprazole 40 mg daily. Her abdominal symptoms could be related to uncontrolled GERD. She may also have an element of IBS She is advised of the limitations of telehealth regarding complete assessment of the abdominal pain Offered in person appointment today which she declines because she does not have transportation. Orders: pantoprazole (PROTONIX) 40 mg EC tablet; Take 1 tablet (40 mg total) by mouth 1 (one) time each day. Do not crush, chew, or split. Disc degeneration, lumbar 10/03/2020 Insomnia 06/22/2020 Impingement syndrome involvi ng patellar fat pad of right knee 06/13/2020 Patellofemoral pain syndrome of right knee 06/13 HSV (herpes simplex virus) infection 09/06/2019 Hyperhidrosis 09/06/2019 Marijuana use 09/06/2019 PTSD (post-traumatic stress disorder) 09/06/2019 Supraventricular tachycardia ([facility] V24) 09/06 Allergic rhinitis 08/28/2019 Assessment & Plan (09/27/2024 7:59 AM EST): Orders: fluticasone propionate (FLONASE) 50 mcg/actuation nasal spray; Administer 1 spray into each nostril 2 (two) times a day. Shake gently. Before first use, prime pump. After use, clean tip and replace cap. Anxiety and depression 08/28/2019 Class 3 severe obesity with body mass index (BMI) of 50.0 to 59.9 in adult ([facility] V24, [facility] V28) 08/18/2019 Assessment & Plan (09/27/2024 7:59 AM EST): She is interested in weight loss medication and is referred to bariatric surgery. Congratulated on weight loss thus far. 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 Last TSH was within normal range Orders: levothyroxine (SYNTHROID, LEVOTHROID) 100 mcg tablet; TAKE 1 TABLET BY MOUTH ON MONDAYS THROUGH SATURDAYS AND 1&1/2 TABLETS ON SUNDAYS ONLY. Assessment & Plan (09/27/2024 7:59 AM EST): Continue levothyroxine Orders: Thyroid stimulating hormone with reflex to free t4 and free t3; Future levothyroxine (SYNTHROID, LEVOTHROID) 100 mcg tablet; TAKE 1 TABLET BY MOUTH ON MONDAYS THROUGH SATURDAYS AND 1&1/2 TABLETS ON SUNDAYS ONLY. 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 12/30/2024 2:11 PM EDT - 12/30/2024 5:12 PM EDT Emergency [facility] Emergency [address] [place] [address] Fabiola Mcfarlane DO Acute midline low back pain without sciatica (Primary Dx) Discharge Disposition: Home or Self Care from Last 3 Months Immunizations Name Administration Dates Next Due Influenza trivalent, 0.5mL, preservative free (Fluarix; FluLaval; Fluzone) ages 6mo and older (Afluria) 3 years and older 08/25/2019 Pfizer SARS-CoV-2 COVID-19, mRNA, LNP-S, preservative free 09/19/2020 Surgical History Surgery Date Site/Laterality Comments COLONOSCOPY 04/28/2019 PROCEDURE: HISTORICAL COLONOSCOPY; COMMENT: No report Medical History Medical History Date Comments Asthma DX:Asthma B12 deficiency DX:B12 deficienc y Telogen effluvium DX:Telogen eff luvium Anxiety 08/28/2019 DX:Anxiety Depression 08/28/2019 DX:Depression Allergic rhinitis 08/28/2019 DX:Allergic rh initis Hypothyroidism due to Hashim jose l's thyroiditis 08/10/2019 DX: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 Morbid obesity with BMI of 4 5.0-49.9, adult ([facility] V24, [facility] V28) 08/18/2019 DX:Morbid obesity wit h BMI of 45.0-49.9, adult ([facility]) Vitamin D deficiency 08/10/2019 DX:Vitamin D deficiency HSV (herpes simplex virus) infection 09/06/2019 DX:HSV (herpes simplex virus) infection Marijuana use 09/06/2019 DX:Marijuana use PTSD (post-traumatic stress disorder) 09/06/2019 DX:PTSD (post-traumatic stress disorder) Hyperhidrosis 09/06/2019 DX:Hyperhidrosis Supraventricular tachycardia ([facility] V24) 09/06/2019 DX:Supraventricular tachycar elyse ([facility]) Right ovarian cyst 05/2021 DX:Right ovar kun cyst; COMMENT: septated right ovarian cyst 2.7 x 2.2 x 1.9cm ; outside facility, report to scanning. History of hiatal hernia DX:Hist ory of hiatal hernia Iron deficiency 08/20/2020 DX:Iron deficien cy Dysphagia DX:Dysphagia Choking DX:Choking Regurgitation of food DX:Regurgi tation of food Family History Medical History Relation Name Comments Hypertension Father Heart attack Maternal Grandfather Hyperte nsion Colon cancer Maternal Grandmother Diabetes Mother Other: ovarian cancer Other Aunts On fat hers side, x2-3 aunts No Known Problems Paternal Grandfather No Known Problems Paternal Grandmother Breast cancer Neg Hx Uterine cancer Neg Hx Relation Name Status Comments Father Maternal Grandfather Maternal Grandmother Mother Alive Other Aunts Paternal Grandfather Paternal Grandmother Social History Tobacco Use Types Packs/Day Years Used Date Smoking Tobacco: Never Smokeless Tobacco: Never Tobacco Cessation:Counseling Given: Not Answered Alcohol Use Standard Drinks/Week Comments Yes 0 (1 standard drink = 0.6 oz pur e alcohol) Housing Instability Answer Date Recorde d Are you worried that in the next 2 months you may not have stable housing? No 09/26/2024 Food Access & Nutrition Answer Date Rec orded Do you have access to a vari ety of food including fruits and vegetables? Yes 09/26/2024 Access to Healthcare Answer Date Record ed Within the last 3 months, ho w many times did you visit the emergency department for your medical care? 0 09/26/2024 Health Literacy Answer Date Recorded How often do you need to hav e someone help you when you read instructions, pamphlets, or other written material from your doctor or pharmacy? Never 09/26/2024 Caregiver: How often do you need to have someone help you when you read instructions, pamphlets, or other written material from your doctor or pharmacy? Not on file 09/26/2024 Financial Risk Answer Date Recorded How hard is it for you to pa y for the very basics like food, housing, medical care, and air conditioning / heating? Not very hard 09/26/2024 Transportation Answer Date Recorded Has the lack of transportati on kept you from meetings, work, or from getting things needed for daily living? Yes Has the lack of transportati on kept you from medical appointments or from getting medications? Yes 09/26/2024 Social Isolation Answer Date Recorded How often do you feel lonely or isolated from th ose around you? Often 09/26/2024 Food Risk Answer Date Recorded Within the past 12 months we worried whether our food would run out before we got money to buy more. Never true 09/26/2024 Within the past 12 months th e food we bought just didn't last and we didn't have money to get more. Never true 09/26/2024 Dependent Care Answer Date Recorded Do you need help finding or paying for care for your loved ones. For example, exceptional children teacher or elderly care for an older adult? No 09/26/2024 Education Answer Date Recorded Do you think completing more education or training, like finishing a GED, going to college, or learning a trade, would be helpful for you? Yes 09/26/2024 Employment and Income Answer Date Recor ded During the last four weeks, have you been actively looking for work? No 09/26/2024 Living Situation Answer Date Recorded What is your living situation? 0 09/26/2024 Comments No Sex and Gender Information Value Date Recorded Sex Assigned at Not on file Legal Sex Female 1:01 AM EST Gender Identity Not on file Sexual Orientation Not on file Obstetrics History Last Filed Vital Signs Vital Sign Reading Time Taken Comments Blood Pressure 145/121 12/30/2024 3:37 PM EDT Pulse 93 12/30/2024 3:37 PM EDT Temperature 37 C (98.6 F) 12/30/2024 12:49 PM EDT Respiratory Rate 18 12/30/2024 3:37 PM EDT Oxygen Saturation 100% 12/30/2024 3:37 PM EDT Inhaled Oxygen Concentration - - Weight 152 kg (335 lb) 12/30/2024 2:52 PM EDT Height 170.2 cm (5' 7 ) 12/30/2024 2:52 PM EDT Body Mass Index 52.47 12/30/2024 2:52 PM EDT Plan of Treatment Upcoming Encounters Date Type Department Care Team (Late st Contact Info) Description 04/13/2025 9:30 AM EDT Office Visit Adult Medicine [address] [phone] Aly Gayle MD [address] [place] [address] 04/30/2025 3:00 PM EDT Office Visit Adult [address] [phone] Aly Gayle MD [address] [place] [address] 05/16/2025 2:00 PM EDT Office Visit Urogynecology [address] [phone] Beryl León MD [address] [place] [address] [address] [place] [address] Health Maintenance Due Date Last Done Comments Pneumococcal Vaccine: Pediatrics (0 to 5 Years) and At-Risk Patients (6 to 49 Years) (1 of 1 - PPSV23) 2006 07/16/2003, 01/17/2001, 2000, Additional history exists HPV Vaccines (1 - 3-dose series) 2015 Hepatitis A Vaccines (2 of 2 - 2-dose series) 01/12/2018 07/14/2017 DTaP,Tdap,and Td Vaccines (7 - Td or Tdap) 09/28/2021 09/29/2011, 08/28/2005, 01/09/2002, Additional history exists Gonorrhea/Chlamydia Screening 01/01/2024 12/31/2022 Cervical Cancer Screening: Pap Smear 01/29/2025 01/29/2022, 01/29/2022, 01/29/2022 COVID-19 Vaccine ( season) 2025 07/02/2022, 09/19/2020, 09/03/2020 Influenza Vaccine (#1) 2025 08/25/2019 Social Influencers of Health Screening 09/26/2025 09/26/2024 Cholesterol Screening (Lipid Panel) 10/05/2029 10/05/2024, 02/25/2024, 02/25/2024, Additional history exists HIB Vaccines Completed 10/05/2001, 12/25, 2000, Additional history exists Hepatitis B Vaccines Completed 10/05/2001, 01/17/2001, 2000 IPV Vaccines Completed 03/02/2006, 12/24, 2000, Additional history exists MMR Vaccines Completed 03/02/2006, 08/02/2001 Varicella Vaccines Completed 09/29/2011, 08/02/2001 Meningococcal ACWY Vaccine Completed 07/14/2017, Hepatitis C Screening Completed 06/08/2021 HIV Screening Completed 03/26/2022 Depression Screening Completed 09/26/2024, 05/15/20 24 Meningococcal B Vaccine Aged Out No l onger eligible based on patient's age to complete this topic RSV Immunization Patients Under 20 months Aged Out No longer eligible based on patient's age to complete this topic Procedures Procedure Name Priority Date/Time Associated Diagnosis Comments MR LUMBAR SPINE WO CONTRAST STAT 12/30/2024 3:26 PM EDT CBC WITH AUTO DIFFERENTIAL STAT 12/30/2024 1:51 PM EDT COMPREHENSIVE METABOLIC PANEL STAT 12/30/2024 1:51 PM EDT CBC AND DIFFERENTIAL STAT 12/30/2024 1:51 PM EDT LIPID PANEL WITH REFLEX TO DIRECT LDL Routine 10/05/2024 4:23 PM EDT Mixed hyperlipidemia HM DEPRESSION SCREENING Routine 05/15/2024 GONORRHEA/CHLAMYDIA SCRREENING Routine 12/31/2022 HIV SCREENING Routine 03/26/2022 PAP SMEAR Routine 01/29/2022 from Last 3 Months or Most Recently Relevant to Health Maintenance Results * MR Lumbar Spine wo Contrast (12/30/2024 3:26 PM EDT) Anatomical Region Laterality Modality L-spine, Spine Magnetic Resonan ce 12/30/2024 4:37 PM EDT Impressions 12/30/2024 4:40 PM EDT Lower lumbar degenerative disc and facet changes without high-grade foraminal or spinal canal stenosis. -------- FINAL REPORT -------- Dictated By: JARDA AQUINO Dictated Date: 12/30/2024 16:37 ET Assigned Physician: JARAD AQUINO Reviewed and Electronically Signed By: JARAD AQUINO Signed Date: 12/30/2024 16:40 ET Workstation ID: [id number] Transcribed By: Self Edit Transcribed Date: 12/30/2024 16:37 ET Narrative 12/30/2024 4:40 PM EDT PROCEDURE: Lumbar spine MRI INDICATION: Pain TECHNIQUE: Multiplanar, multisequence MRI of the Lumbar spine Without contrast. COMPARISON: No priors available. FINDINGS: Lumbar lordosis is preserved. No fracture or suspicious marrow replacing lesion. Degenerative loss of normal disc height and signal throughout the lower lumbar spine, most pronounced at L3-4. Mild lower lumbar predominant degenerative facet arthritis. Conus medullaris is normal and terminates at L1. No epidural collection or mass is seen within the spinal canal. Paraspinal muscles are normal. Visualized intra-abdominal and pelvic structures are normal. Findings by level: T12-L1: No focal disc protrusion, facet arthropathy, foraminal stenosis, or spinal canal stenosis. L1-2: No focal disc protrusion, facet arthropathy, foraminal stenosis, or spinal canal stenosis. L2-3: No focal disc protrusion, facet arthropathy, foraminal stenosis, or spinal canal stenosis. L3-4: No focal disc protrusion, facet arthropathy, foraminal stenosis, or spinal canal stenosis. L4-5: Central annular tear and small protrusion. No foraminal or spinal canal stenosis L5-S1: Diffuse disc bulge with endplate spurring, eccentric to the left. Mild left and no right foraminal stenosis. No spinal canal stenosis. Procedure Note Jarad Aquino MD - 12/30/2024 PROCEDURE: Lumbar spine MRI INDICATION: Pain TECHNIQUE: Multiplanar, multisequence MRI of the Lumbar spine Withoutcontrast. COMPARISON: No priors available. FINDINGS: Lumbar lordosis is preserved. No fracture or suspicious marrow replacing lesion. Degenerative loss of normal disc height and signal throughout the lowerlumbar spine, most pronounced at L3-4. Mild lower lumbar predominant degenerative facet arthritis. Conus medullaris is normal and terminates at L1. No epidural collectionor mass is seen within the spinal canal. Paraspinal muscles are normal. Visualized intra-abdominal and pelvicstructures are normal. Findings by level: T12-L1: No focal disc protrusion, facet arthropathy, foraminal stenosis,or spinal canal stenosis. L1-2: No focal disc protrusion, facet arthropathy, foraminal stenosis, orspinal canal stenosis. L2-3: No focal disc protrusion, facet arthropathy, foraminal stenosis, orspinal canal stenosis. L3-4: No focal disc protrusion, facet arthropathy, foraminal stenosis, orspinal canal stenosis. L4-5: Central annular tear and small protrusion. No foraminal or spinalcanal stenosis L5-S1: Diffuse disc bulge with endplate spurring, eccentric to the left.Mild left and no right foraminal stenosis. No spinal canal stenosis. IMPRESSION: Lower lumbar degenerative disc and facet changes without high-gradeforaminal or spinal canal stenosis. -------- FINAL REPORT -------- Dictated By: JARAD AQUINO Dictated Date: 12/30/2024 16:37 ET Assigned Physician: JARAD AQUINO Reviewed and Electronically Signed By: JARAD AQUINO Signed Date: 12/30/2024 16:40 ET Workstation ID: [id number] Transcribed By: Self Edit Transcribed Date: 12/30/2024 16:37 ET us [facility] Mo Mcfarlane DO IMG MRI PROCEDURES Final Result * CBC auto differential (12/30/2024 1:51 PM EDT) WBC 8.4 4.8 - 10.8 K/mcL LAB HEMETOLOGY METHOD 12/30/2024 2:45 PM EDT [facility] RBC 4.80 3.80 - 4.80 M/mcL LAB HEMETOLOGY METHOD 12/30/2024 2:45 PM EDT [facility] Hemoglobin 14.7 11.5 - 16.0 g/dL LAB HEMETOLOGY METHOD 12/30/2024 2:45 PM EDT [facility] Hematocrit 45.7 35.0 - 47.0 % LAB HEMETOLOGY METHOD 12/30/2024 2:45 PM EDT [facility] MCV 96.0 79.0 - 98.0 FL LAB HEMETOLOGY METHOD 12/30/2024 2:45 PM EDT [facility] MCH 30.9 27.0 - 32.0 pcg LAB HEMETOLOGY METHOD 12/30/2024 2:45 PM EDT [facility] MCHC 32.2 32.0 - 37.0 g/dL LAB HEMETOLOGY METHOD 12/30/2024 2:45 PM EDT [facility] RDW 12.2 11.0 - 15.0 % LAB HEMETOLOGY METHOD 12/30/2024 2:45 PM EDT [facility] Platelets 255 130 - 400 K/mcL LAB HEMETOLOGY METHOD 12/30/2024 2:45 PM EDT [facility] MPV 10.9 7.0 - 11.0 FL LAB [facility]EMETOLOGY [facility] NRBC 0.0 <1.0 % LAB HEMETOLOGY METHOD 12/30/2024 2:45 PM EDT [facility] NRBC Absolute 0.00 <0.10 K/mcL LAB HEMETOLOGY METHOD 12/30[facility]2024 2[facility] Neutrophils Relative 47.0 % LAB HEMETOLOGY METHOD 12/30[facility]2024 2:[facility] Lymphocytes Relative 40.5 % LAB HEMETOLOGY METHOD 12/30[facility]2024 2:[facility] Monocytes Relative 6.2 % LAB HEMETOLOGY METHOD 12/30/2024 2:45 PM [facility] Eosinophils Relative 5.3 % LAB HEMETOLOGY METHOD 12/30/2024 2:45 PM [facility] Basophils Relative 0.6 % LAB HEMETOLOGY METHOD 12/30/2024 2:45 PM [facility] Immature Granulocytes Relative 0.4 % LAB HEMETOLOGY METHOD 12/30/2024 2:45 PM EDT [facility] Neutrophils Absolute 3.94 1.50 - 7.00 K/mcL LAB HEMETOLOGY METHOD 12/30/2024 2:45 PM EDT [facility] Lymphocytes Absolute 3.39 1.00 - 5.00 K/mcL LAB HEMETOLOGY METHOD 12/30/2024 2:45 PM EDT [facility] Monocytes Absolute 0.52 0.20 - 1.00 K/mcL LAB HEMETOLOGY METHOD 12/30/2024 2:45 PM EDT [facility] Eosinophils Absolute 0.44 0.00 - 0.50 K/[facility] LAB HEMETOLOGY METHOD 12/30/2024 2:45 PM EDT [facility] Basophils Absolute 0.05 0.00 - 0.20 K/[facility] LAB HEMETOLOGY METHOD 12/30/2024 2:45 PM EDT [facility] Immature Granulocytes Absolute 0.03 0.00 - 0.03 K/[facility] LAB HEMETOLOGY METHOD 12/30/2024 2:45 PM EDT [facility] Blood Venous blood specimen / Unknown Venipuncture / Unknown 12/30/2024 1:51 PM EDT 12/30/2024 2:35 PM EDT us Taz Delatorre DO LAB BLOOD ORDERABLES Final Res ult [facility] [address] [place] [address], [place] [phone] * Comprehensive metabolic panel (12/30/2024 1:51 PM EDT) Sodium 141 133 - 145 mmol/L LAB CHEMISTRY METHOD 12/30/2024 3:02 PM [facility] Potassium 4.6 3.5 - 5.5 mmol/L LAB CHEMISTRY METHOD 12/30/2024 3:02 PM [facility] Chloride 110 96 - 110 mmol/L LAB CHEMISTRY METHOD 12/30/2024 3:02 PM [facility] CO2 25 21 - 32 mmol/L LAB CHEMISTRY METHOD 12/30/2024 3:02 PM [facility] Anion Gap 6 3 - 11 LAB CHEMISTRY METHOD 12/30/2024 3:02 PM [facility] Glucose 80 70 - 100 mg/dL LAB CHEMISTRY METHOD 12/30[facility]2024 [facility] BUN 11 5 - 25 mg/dL LAB CHEMISTRY METHOD 12/30/2024 3:02 PM [facility] Creatinine 0.90 0.50 - 1.10 mg/dL LAB CHEMISTRY METHOD 12/30/2024 3:02 PM [facility] eGFR 92 >=60 mL/min/1. 73m2 LAB CHEMISTRY METHOD 12/30/2024 3:02 PM [facility] Comment:Calculation based on the Chronic Kidney Disease Epidemiology Collaboration (CKD-EPI) equation refit without adjustment for race. BUN/Creatinine Ratio 12.2 LAB CHEMISTRY METHOD 12/30/2024 3:02 PM [facility] Calcium 9.2 8.5 - 10.5 mg/dL LAB CHEMISTRY METHOD 12/30/2024 3:02 PM [facility] AST (SGOT) 21 10 - 42 unit/L LAB CHEMISTRY METHOD 12/30/2024 3:02 PM [facility] ALT (SGPT) 28 10 - 60 unit/L LAB CHEMISTRY METHOD 12/30/2024 3:02 PM [facility] Alkaline Phosphatase 81 42 - 121 unit/L LAB CHEMISTRY METHOD 12/30/2024 3:02 PM [facility] Total Protein 6.7 6.0 - 8.0 g/dL LAB CHEMISTRY METHOD 12/30/2024 3:02 PM [facility] Albumin 3.4 3.2 - 5.0 g/dL LAB CHEMISTRY METHOD 12/30/2024 3:02 PM [facility] Total Bilirubin 0.2 0.0 - 1.4 mg/dL LAB CHEMISTRY METHOD 12/30/2024 3:02 PM [facility] Blood Venous blood specimen / Unknown Venipuncture / Unknown 12/30/2024 1:51 PM EDT 12/30/2024 2:35 PM EDT us Taz Delatorre DO LAB BLOOD ORDERABLES Final Res ult [facility] [address] [place] [address], [place] [phone] * (ABNORMAL) Lipid panel with reflex to direct LDL (10/05/2024 4:23 PM EDT) Cholesterol 204(H) 0 - 200 mg/dL LAB CHEMISTRY METHOD 10/05/2024 7:06 PM EDT [facility] Triglycerides 229(H) 0 - 150 mg/dL LAB CHEMISTRY METHOD 10/05/2024 7:06 PM EDT [facility] HDL 49 >=40 mg/dL LAB CHEMISTRY METHOD 10/05/2024 7:06 PM EDT [facility] LDL Calculated 109(H) 0 - 100 mg/dL LAB CHEMISTRY METHOD 10/05/2024 7:06 PM EDT [facility] VLDL Cholesterol Josr 45.8 mg/dL LAB CHEMISTRY METHOD 10/05/2024 7:06 PM EDT [facility] Non HDL Chol. (LDL+VLDL) 155(H) <145 mg/dL LAB CHEMISTRY METHOD 10/05/2024 7:06 PM EDT [facility] Chol/HDL Ratio 4.2 0.0 - 4.4 LAB CHEMISTRY METHOD 10/05/2024 7:06 PM EDT [facility] Blood Venous blood specimen / Unknown Venipuncture / Unknown 10/05/2024 4:23 PM EDT 10/05/2024 4:23 PM EDT Aly Gayle MD LAB BLOOD ORDERA BLES Final Result [facility] [address] [place] [address], [place] [phone] * Hm Depression Screening (05/15/2024) HM Depression Screening Abstracted Historical Provider MD HEALTH MAINTENANCE Final Result * Gonorrhea/Chlamydia Screening (12/31/2022) Gonorrhea/Chla mydia Screening Abstracted Historical Provider HEALTH MAINTENANCE Final Result * HIV Screening (03/26/2022) HIV Screening Abstracted Historical Provider MD HEALTH MAINTENANCE Final Result * Pap smear (01/29/2022) 01/29/2022 Narrative HISTORICAL TESTING LAB RESULTING AGENCY - 02/09/2022 12:39 PM EDT [id number] THINPREP PAP, IMAGED: NEGATIVE FOR SQUAMOUS INTRAEPITHELIAL LESION AND MALIGNANCY. SHIFT IN ARAVIND, SUGGESTIVE OF BACTERIAL VAGINOSIS. YASMEEN CHARLES(ASCP) (CASE ELECTRONICALLY SIGNED 02 06 2022) ADEQUACY: SATISFACTORY ENDOCERVICAL/TRANSFORMATION ZONE COMPONENT PRESENT. SOURCE: THINPREP PAP HPV IF ASCUS, CERVICAL, IMAGED CLINICAL INFORMATION: HPV IF DIAGNOSIS OF ASCUS. [Z12.4] Suly Prince CNM LAB CYTOLOGY ORDERABLES Final Result HISTORICAL TESTING LAB RESULTING AGENCY from Last 3 Months or Most Recently Relevant to Health Maintenance Insurance [facility] [employer] [facility] Care Teams Hat Braider Relationship Specialty Start Date End Date Aly Gayle MD [address] [place] [address] PCP - General Internal Medicine 04/21/22
--- OUTSIDE RECORDS SUMMARY | 2025-03-27 11:27 | XMS_ITS | Encounter Summary ---
Author Organization [facility] Address [address] [place], [place] [id number] Phone Care Team Providers Care Patient Financial Specialist Name Role Phone Jessica Goss DO Primary Care Provider Unavaila ble Reason for Visit * Reason Comments Med Refill Encounter Details Date Type Department Care Team ([facility] st Contact Info) Description 06/07/2018 Refill [facility] [address] [facility] [place] [address] Cheryl Walters MD [address] [place] [address] Anxiety with depression Social History Tobacco Use Types Packs/Day Years [...] as of this encounter Visit Diagnoses Diagnosis Anxiety with depression documented in this encounter Care Teams Patient Financial Specialist Relationship Specialty Start Date End Date Jessica Goss DO PCP - General Pediatrics 02/09/19 documented as of this encounter
--- OUTSIDE RECORDS SUMMARY | 2025-03-27 11:27 | XMS_ITS | Encounter Summary ---
Author Organization [facility] Address [address] [place] [phone] Phone Care Team Providers Care Information Clerk Cashier Name Role Phone Jessica Goss DO Primary Care Provider Unavaila ble Reason for Visit * Reason Comments Med Refill Encounter Details Date Type Department Care Team ([facility] Contact Info) Description 10/09/2018 Refill [facility] [address] [place] [address] [place] [address] Isidro Zuniga MD [address] [place] [address] [place] [address] Axillary hyperhidrosis Social History Tobacco Use Types Packs/Day Years Used Date Smoking Tobacco: Every Day Smokeless Tobacco: Current Comments:marijuana Alcohol Use Standard Drinks/Week Comments Yes 0 (1 standard drink = 0.6 oz pur e alcohol) social Hunger/Food Answer Date Recorded No 09/05/2018 Stable Housing Answer Date Recorded 0 09/05/2018 Transportation Concerns Answer Date Rec orded No 09/05/2018 Hazards in Home Answer Date Recorded No 09/05/2018 Financing Utilities Answer Date Recorde d No 09/05/2018 Safety at Home Answer Date Recorded No 09/05/2018 Outside Support Answer Date Recorded No 09/05/2018 Understanding Health Concerns Answer Da te Recorded No 09/05/2018 Financing Health Concerns Answer Date R ecorded No 09/05/2018 Missing School or Work Answer Date Brent rded No 09/05/2018 Comments Unknown Sex and Gender Information Value Date Recorded Sex Assigned at Not on file Legal Sex Female 6:36 PM EDT Gender Identity Not on file Sexual Orientation Not on file documented as of this encounter Plan of Treatment Not on file documented as of this encounter Visit Diagnoses Diagnosis Axillary hyperhidrosis documented in this encounter Care Teams Information Clerk Cashier Relationship Specialty Start Date End Date Jessica Goss DO PCP - General Pediatrics 02/09/19 documented as of this encounter
--- OUTSIDE RECORDS SUMMARY | 2025-03-27 11:27 | XMS_ITS | Encounter Summary ---
Author Organization [facility] Address [address] [place] [phone] Phone Care Team Providers Care Cafeteria Monitor Name Role Phone Pradeep Villanueva MD Primary Care Provider Encounter Details Date Type Department Care Team (Late st Contact Info) Description 05/18/2020 Procedure Pass [facility], Ct Scan - [address] [address] Social History Tobacco Use Types Packs/Day Years Used Date Smoking Tobacco: Every Day Smokeless Tobacco: Never Alcohol Use Standard Drinks/Week Comments Not Currently 0 (1 standard drink = 0.6 oz pur e alcohol) Comments Unknown Sex and Gender Information Value Date Recorded Sex Assigned at Female 05/18/2020 5:55 PM EDT Legal Sex Female 5:39 PM EDT Gender Identity Female 05/18/2020 5:55 PM EDT Sexual Orientation Not on file documented as of this encounter Plan of Treatment Not on file documented as of this encounter Visit Diagnoses Not on filedocumented in this encounter Care Teams Cafeteria Monitor Relationship Specialty Start Date End Date Pradeep Villanueva MD PCP - General Internal Medicine 05/18/20 documented as of this encounter Additional Source Comments The information contained in this document represents components of the legal health record. It is not the complete legal health record.[facility]
--- OUTSIDE RECORDS SUMMARY | 2025-03-27 11:27 | XMS_ITS | Encounter Summary ---
Author Organization [facility] Address [address] [place] [address] Phone Care Team Providers Care Bean Viner Name Role Phone Jessica Goss DO Primary Care Provider Unavaila ble Reason for Visit * Reason Comments Med Refill Encounter Details Date Type Department Care Team ([facility] st Contact Info) Description 06/19/2018 Refill [facility] [address] [facility] [place] [address] Jessica Goss DO Non-seasonal allergic rhinitis due to other allergic trigger (Primary Dx) Social History Tobacco Use Types Packs/Day Years Used Date Smoking Tobacco: Every Day Smokeless Tobacco: Current Comments:marijuanna Comments Unknown Sex and Gender Information Value Date Recorded Sex Assigned at Not on file Legal Sex Female 6:36 PM EDT Gender Identity Not on file Sexual Orientation Not on file documented as of this encounter Miscellaneous Notes * Telephone Encounter - Lurdes Quiles MA - 06/20/2018 9:12 AM EST Last pe with ALP 07/14/17 MQ documented in this encounter Plan of Treatment Not on file documented as of this encounter Visit Diagnoses Diagnosis Non-seasonal allergic rhinitis due to other allergic trigger- Primary documented in this encounter Care Teams Bean Viner Relationship Specialty Start Date End Date Jessica Goss DO PCP - General Pediatrics 02/09/19 documented as of this encounter
--- OUTSIDE RECORDS SUMMARY | 2025-03-27 11:28 | XMS_ITS | Encounter Summary ---
Author Organization [facility] Address [address] [place], [place] [phone] Phone Care Team Providers Care Well Drill Operator Rotary Drill Name Role Phone Jessica Goss DO Primary Care Provider Unavaila ble Reason for Visit * Reason Comments Med Refill Encounter Details Date Type Department Care Team ([facility] Contact Info) Description 11/17/2018 Refill [facility] [address] [facility] [place] [address] Jessica Goss DO Non-seasonal allergic rhinitis due to other allergic trigger Social History Tobacco Use Types Packs/Day Years [...] allergic rhinitis due to other allergic trigger documented in this encounter Care Teams Well Drill Operator Rotary Drill Relationship Specialty Start Date End Date Jessica Goss DO PCP - General Pediatrics 02/09/19 documented as of this encounter
--- OUTSIDE RECORDS SUMMARY | 2025-03-27 11:28 | XMS_ITS | Encounter Summary ---
Author Organization [facility] Address [address] [place] [phone] Phone Care Team Providers Care Dry Color Tester Name Role Phone Jessica Goss Primary Care Provider Unavaila ble Reason for Visit * Reason Onset Date Comments Med Refill 11/15/2018 Encounter Details Date Type Department Care Team ([facility] st Contact Info) Description 11/15/2018 Refill [facility] [address] [place] [address] [place] [address] Cheryl Walters MD [address] [place] [address] Non-seasonal allergic rhinitis due to other allergic [...] trigger documented in this encounter Care Teams Dry Color Tester Relationship Specialty Start Date End Date Jessica Goss DO PCP - General Pediatrics 02/09/19 documented as of this encounter
--- OUTSIDE RECORDS SUMMARY | 2025-03-27 11:28 | XMS_ITS | Encounter Summary ---
Author Organization [facility] Address [address] [place] [address] Phone Care Team Providers Care Side Laster Tack Name Role Phone Wolfgang Jessica Primary Care Provider Unavaila ble Reason for Visit * Reason Onset Date Comments Med Refill Med Refill 04/13/2019 Encounter Details Date Type Department Care Team ([facility] st Contact Info) Description 04/08/2019 Refill [facility] [address] [place] [address] [place] [address] Isidro Slaughter MD [address] [place] [address] [place] [phone] Acute seasonal allergic rhinitis due to pollen Social History Tobacco Use Types Packs/Day Years [...] as of this encounter Visit Diagnoses Diagnosis Acute seasonal allergic rhinitis due to pollen documented in this encounter Care Teams Side Laster Tack Relationship Specialty Start Date End Date Jessica Goss DO PCP - General Pediatrics 02/09/19 documented as of this encounter
--- OUTSIDE RECORDS SUMMARY | 2025-03-27 11:28 | XMS_ITS | Clinical Summary ---
Author Organization [facility] Address [address] [place] [id number] Phone Care Team Providers Care Land Examiner Name Role Phone Jessica Goss DO Primary Care Provider Unavaila ble Allergies No known active allergies Medications .12/22 1.5-30 MG-MCG per tablet 8 Active LORazepam 1 MG tabletIndication s:Anxiety Take 1 tablet (1 mg total) by mouth every 8 (eight) hours as needed for anxiety for up to 3 doses. 3 tablet 9 Active PARoxetine (PAXIL) 30 MG tablet 9 Active ketoconazole 2 % creamIndications :Tinea corporis Apply topically daily. 15 g 9 Active CETIRIZINE 10 MG tabletIndication s:Allergic rhinitis, unspecified seasonality, unspecified trigger TAKE 1 TABLET (10 MG TOTAL) BY MOUTH NIGHTLY NEEDED FOR ALLERGIES. 30 tablet 9 Active Active Problems Problem Noted Date Diagnosed Date Vitamin B12 deficiency 04/12/2019 Assessment & Plan (04/24/2019 11:05 AM EDT): 04/21/2019 - Terese Meyers MD. [facility]. Rule out IBD. Checking intrinsic factor Ab, parietal cell Ab, CRP, fecal calprotectin, MMA/homocysteine. Colonoscopy reviewed. Continue B12 supplement. Follow up depending on results. Assessment & Plan (04/12/2019 12:42 PM EDT): Vitamin B 12 deficiency noted on lab work. No anatomic GI abnormalities noted. She does eat meat and does not have a diet that is restricted to suggest an underlying reason for vitamin B12 deficiency. She does not have anemia but does have neurologic and psychiatric symptoms that could be consistent with Vitamin B 12 deficiency. Started treatment with oral B12 supplementation. Patient is requesting Vitamin B12 injections to start particularly with neurologic issues coming up. After reviewing recommendations will move forward with Vitamin B12 injections. Will obtain other lab work checking for other deficiencies that can come with Vitamin B12 deficiency (folate), other labs that help to define/confirm this deficiency (MMA, homocysteine), lab looking at possible autoimmune reason for Vitamin B 12 deficiency (intrinsic factor Ab), labs screening for other vitamin deficiencies as the history and lab work is not totally consistent with a vitamin B12 deficiency. Referral to GI for further evaluation around gut absorption of Vitamin B12. Numbness and tingling 04/12/2019 Assessment & Plan (04/12/2019 12:45 PM EDT): Referral to neurology with progressive numbness and trouble functionally with walking and hand witting. No obvious physical exam suggesting a particular neurologic lesion. Could be related to vitamin B12 deficiency but will make referral and get this process started while we are working on Vitamin B12 supplementation. Borderline hypertension 04/06/2019 Assessment & Plan (04/06/2019 5:28 PM EDT): With boarderline hypertension and report of elevated blood pressures at psychiatric office some concern for more persistent blood pressure issue than noted in our records. Discussed that this would not be causing her fatigue. With episodes of excessive sweating and anxiousness raises remote possibility of pheochromocytoma. Will screen for this with fractionated metanephrines. More likely to be boarderline hypertension related to weight. Will also check kidney function with screening labs. Chronic fatigue 04/06/2019 Assessment & Plan (04/06/2019 5:25 PM EDT): Differential is large. She has had fairly consistent tiredness which has worsened recently. This is most likely due to inability to sleep and recommended that she should follow up with psychiatric office concerning a plan to help with sleep. She has tried a few medications in the past without benefit. With increase in fatigue recently and no recent lab work will screen for medical issues that could add to tiredness. Differential includes hypothyroidism, anemia, chronic inflammation (history of elevated sedimentation in the past), vitamin deficiency, iron deficiency, , metabolic disturbance. Influenza vaccine refused 09/05/2018 Paroxysmal SVT (supraventricular tachycardia) Overview (07/22/2018): 05/2018 - seen by Dr. Parker, cardiology. Concern for possible paroxysmal SVT. Following forward. No exercise restriction. 06/2018 - Dr. Parker follow up. Event monitor was normal. No further work up. Anxiety with depression 05/12/2018 Assessment & Plan (05/23/2019 5:36 PM EDT): Coretta is here talking about chest pain with deep breath. It occurs for seconds but returns every few minutes. There is no cause for it that she can point to. She reports she has been to a arboriculture instructor before and had a normal EKG. She says she has had panic attacks before but not like this and thought that was related to getting out of a place. She also brings up memory problems, problems remembering conversations. But she does remember most things, even enough to get 100% on exams. She says she has weird perceptions of those conversations, disassociations with them. She has been to the neurologist and was diagnosed with neuropathy and myopathy for the numbness in her fingers, but then says it was her whole body. She is concerned that she has an autoimmune disorder because of the B12 deficiency that she had. She says her mother had psoriasis which is an autoimmune disease. She feels there is a reason for her chest pain, high blood pressure, the numbness, her back pain, rashes on her chest that come and go, hot flashes and sweating. We will send her to the coal grader. We are rechecking her for B12 deficiency. Coretta is on paxil and lorazepam and has a psychiatrist. I personally feel these symptoms are all related to anxiety and panic attacks. She does not agree with this diagnosis. I am concerned that during the office visit she changes her story and is making it more complicated and holds back information if there is an attempt to make an conclusive diagnosis. I do not know where this will go. I will try and contact her psychiatrist if there is a release. Assessment & Plan (04/06/2019 9:29 PM EDT): Continue follow up, treatment, and therapy at psychiatric office. Discussed importance of contacting psychiatric office concerning sleep disruption and medication regimen. Extrinsic asthma 12/14/2017 Overview (03/29/2018): Asthma (493.00) Onset: 12/14/2017 Added by: Cheryl Walters Pain in soft tissues of limb 12/14/2017 Overview (03/29/2018): Foot pain (729.5) Onset: 12/14/2017 Added by: Cheryl Walters Assessment & Plan (04/06/2019 9:26 PM EDT): Right thigh and left upper arm transient intermittent discomfort. No concern for fracture. Possible muscle irritation or strain. Generalized hyperhidrosis 07/14/2017 Overview (03/29/2018): Excessive sweating (780.8) Onset: 07/14/2017 Added by: Jessica Goss Assessment & Plan (04/06/2019 5:29 PM EDT): As discussed above concern for possible pheochromocytoma with boarderline hypertension. Screening with lab work. More likely Posttraumatic stress disorder 12/17/2013 Overview (03/29/2018): Posttraumatic stress disorder (309.81) Onset: 12/17/2013 Added by: Isidro Slaughter Assessment & Plan (04/06/2019 9:28 PM EDT): Continue follow up, treatment, and therapy at psychiatric office. Discussed importance of contacting psychiatric office concerning sleep disruption and medication regimen. Obesity 09/29/2011 Overview (03/29/2018): Obesity, NOS (278.00) Onset: 09/29/2011 Added by: Isidro Slaughter Resolved Problems Problem Noted Date Diagnosed Date Resolved Date Other acute sinusitis 12/14/20172018 Overview (03/29/2018): Acute sinusitis, other (461.8) Onset: 12/14/2017 Added by: Cheryl Walters Dysthymic disorder 12/17/2013 9 Overview (03/29/2018): Anxiety with depression (300.4) Onset: 12/17/2013 Added by: Isidro Slaughter Immunizations Immunization Administration Dates Next Due DTaP 5 08/28/2005, 2,01/17/2001, 001,2000 Hep A, ped/adol 07/14/2017 Hep B, ped/adol 10/05/2001,01/17/2001,2000 Hib (PRP-T) 10/05/2001, 1,2000, 001 IPV 03/02/2006, 2,2000, 001 MMR 03/02/2006,08/02/2001 Meningococcal Conj (Menactra) MCV4P 07/14/2017,0 09/29/2011 PPD Test 08/01/2018 Pneumococcal Conjugate 07/16/2003,2000,2000, 001 Tdap 09/29/2011 Varicella 09/29/2011,08/02/2001 Family History Medical History Relation Name Comments No Known Problems Father Jordan No Known Problems Mother Jenny Relation Name Status Comments Father Jordan Alive Mother Jenny Alive Social History Tobacco Use Types Packs/Day Years Used Date Smoking Tobacco: Every Day Smokeless Tobacco: Current Comments:marijuana Alcohol Use Standard Drinks/Week Comments Yes 0 (1 standard drink = 0.6 oz pur e alcohol) social Hunger/Food Answer Date Recorded No 09/05/2018 Stable Housing Answer Date Recorded No 07/27/2019 Transportation Concerns Answer Date Rec orded No [...] on file Sexual Orientation Not on file Last Filed Vital Signs Vital Sign Reading Time Taken Comments Blood Pressure 168/106 05/23/2019 4:31 PM EDT Pulse 96 05/03/2019 1:04 PM EDT Temperature 37.3 C (99.2 F) 05/23/2019 4:31 PM EDT Respiratory Rate - - Oxygen Saturation - - Inhaled Oxygen Concentration - - Weight 109 kg (240 lb 7 oz) 05/23/2019 4:31 PM E DT Height 167.6 cm (5' 6 ) 05/23/2019 4:31 PM EDT Body Mass Index 38.81 05/23/2019 4:31 PM EDT Plan of Treatment Health Maintenance Due Date Last Done Comments HPV Vaccines (1 - 3-dose series) 2015 Hepatitis A Vaccines (2 of 2 - 2-dose series) 01/12/2018 07/14/2017 DTaP,Tdap,and Td Vaccines (7 - Td or Tdap) 09/28/2021 09/29/2011, 08/28/2005, 01/09/2002, Additional history exists Influenza Vaccines (#1) 2025 COVID-19 Vaccine ( season) 2025 HIB Vaccines Completed 10/05/2001, 12/25, 2000, Additional history exists Hepatitis B Vaccines Completed 10/05/2001, 01/17/2001, 2000 Pneumococcal Vaccine Completed 07/16/2003, 01/17/2001, 2000, Additional history exists IPV Vaccines Completed 03/02/2006, 12/24, 2000, Additional history exists MMR Vaccines Completed 03/02/2006, 08/02/2001 Varicella Vaccines Completed 09/29/2011, 08/02/2001 Meningococcal Vaccine Completed 07/14/2017, 012 Men B Vaccine Aged Out No longer elig ible based on patient's age to complete this topic Procedures * Due to [place] state law, this organization might not be sharing sensitive test results. Procedure Name Priority Date/Time Associated Diagnosis Comments CHLAMYDIA AND GONORRHEA, AMPLIFIED Routine 09/05/2018 4:03 PM EST Well adult exam from Last 3 Months or Most Recently Relevant to Health Maintenance Results * Due to [place] state law, this organization might not be sharing sensitive test results. * Chlamydia and Gonorrhea, Amplified (09/05/2018 4:03 PM EST) Chlamydia Trachomatis, DNA Probe NEGATIVE (NEG) [facility] Comment: No Chlamydia Trachomatis RNA detected in this patient's sample (REFERENCE RANGE/NORMAL VALUE: NOT DETECTED) Note: This test uses life claims examiner- mediated amplification method to detect rRNA from C. Trachomatis URINE GC AMP PROBE NEGATIVE (NEG) [facility] Comment: No Neisseria Gonorrhoeae RNA detected in this patient's sample (REFERENCE RANGE/NORMAL VALUE: NOT DETECTED) NOTE: This test uses life claims examiner-mediated amplification method to detect rRNA from N.Gonorrhoeae. A negative result does not preclude infection. In the case of a negative urine result, testing of an endocervical(female) or urethral (male) specimen is recommended if there is high clinical suspicion of infection. Due to very high sensitivity of Nucleic Acid Amplification Test, false positive results may occur. Therefore, specimen handling is extremely important. In patients in whom the disease is unlikely, additional sample for testing should be considered after an initial positive result. The performance characteristics of this test have not been evaluated in children. The Aptima Combo2 assay is not intended for the evaluation of suspected sexual abuse or for other medico-legal indications. The ordering provider should assess if the patient had consensual sex without risk of sexual abuse. Consult the [facility] if needed. Contact phone number . Therapeutic failure or success cannot be determined with the Aptima Combo2 assay since nucleic acid may persist following appropriate antimicrobial therapy. The Centers for Disease Control and Prevention (CDC) recommends confirmatory retesting using culture or a different nucleic acid amplification test when positive results occur, if indicated. Testing performed or reported by [facility], a Service of [facility], [address], [place] [address] Urine 09/05/2018 4:03 PM EST 09/06/2018 1:15 AM EST us Cheryl Walters MD LAB MICROBIOLOGY - GENERAL ORDER JESUS Final Result [facility] from Last 3 Months or Most Recently Relevant to Health Maintenance Insurance [facility] OTHER ACO [employer] THP OTHER ACO [employer] Care Teams Land Examiner Relationship Specialty Start Date End Date Jessica Goss DO PCP - General Pediatrics 02/09/19
== END 2025-03-27 11:09 | disposition home or self-care (01) ==
LOC: HO.RHES 10:05
PROVIDERS: PCP Family Medicine; Visit Provider Internal Medicine Rheumatology
DX: Q79.62 Hypermobile Ehlers-Danlos syndrome (principal); M47.816 Spondylosis without myelopathy or radiculopathy, lumbar region; M25.562 Pain in left knee; L40.9 Psoriasis, unspecified
CPT/HCPCS: 99214

== ENCOUNTER → 2025-03-27 10:04 | Outpatient (BNVA) | payer OTHER, SELFPAY | PROVIDERS: PCP Family Medicine; Visit Provider Internal Medicine Rheumatology | DX: Q79.62 Hypermobile Ehlers-Danlos syndrome (principal); M47.816 Spondylosis without myelopathy or radiculopathy, lumbar region; M25.562 Pain in left knee; L40.9 Psoriasis, unspecified; M35.7 Hypermobility syndrome | CPT/HCPCS: 99212 ==

== ENCOUNTER 2025-04-20 12:17 | Outpatient (REF) | payer OTHER, SELFPAY ==
--- OUTSIDE RECORDS SUMMARY | 2025-04-13 09:30 | XMS_ITS | Encounter Summary ---
Author Organization [facility] Address [address] [place] [address] Care Team Providers Care [facility] Hospitalist Name Role Phone Aly Gayle MD Primary Care Pr ovider Reason for Referral * Medications - Authorized Specialty Diagnoses / Procedures Referred By Yvonne gamez Referred To Contact Diagnoses Class 3 severe obesity with body mass index (BMI) of 50.0 to 59.9 in adult (CMS/HCC V24, CMS/HCC V28) Aly Gayle MD [address] [place] [address] Phone: tel: fax: Referral ID Status Reason Start Date Expiration Date V isits Requested Visits Authorized [id number] Authorized 04/14/2025 05/12/2025 1 1 * Consultation (Routine) - Closed Specialty Diagnoses / Procedures Referred By Yvonne gamez Referred To Contact Obstetrics and Gynecology Diagnoses Cervical cancer screening Aly Gayle MD [address] [place] [phone] Phone: tel: fax: Lizzy Chávez MD [address] [place] [phone] Phone: tel: fax: Referral ID Status Reason Start Date Expiration Date V isits Requested Visits Authorized [id number] Closed Specialty Services Required 04/13/2025 04/13/2026 1 1 Reason for Visit * Reason Comments Weight Management Encounter Details Date Type Department Care Team (Late st Contact Info) Description 04/13/2025 9:30 AM EDT Office Visit Adult Medicine [address] [phone] Aly Gayle MD [address] [place] [address] Class 3 severe obesity with body mass index (BMI) of 50.0 to 59.9 in adult (CMS/[facility] V24, CMS/[facility] V28) (Primary Dx); 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; Other specified attention deficit hyperactivity disorder (ADHD); Bipolar disorder with depression (CMS/HCC V24, CMS/[facility] V28); Mixed obsessional thoughts and acts; Primary insomnia; Mixed hyperlipidemia; Mild persistent asthma without complication; Osteoarthritis of spine with radiculopathy, lumbar region; Degeneration of intervertebral disc of lumbar region with discogenic back pain; Gastroesophageal reflux disease without esophagitis; Cervical cancer screening Social History Tobacco Use Types Packs/Day Years Used Date Smoking Tobacco: Never Smokeless Tobacco: Never Alcohol Use Standard Drinks/Week Comments Yes 0 [...] care for your loved ones. For example, child care leader or elderly care for an older adult? [...] on file documented as of this encounter Last Filed Vital Signs Vital Sign Reading Time Taken Comments Blood Pressure 116/80 04/13/2025 9:26 AM EDT Pulse 88 04/13/2025 9:26 AM EDT Temperature 36.4 C (97.5 F) 04/13/2025 9:26 AM EDT Respiratory Rate - - Oxygen Saturation 98% 04/13/2025 9:26 AM EDT Inhaled Oxygen Concentration - - Weight 159 kg (350 lb 6.4 oz) 04/13/2025 9:26 AM EDT Height 170.2 cm (5' 7.01 ) 04/13/2025 9:26 AM ED T Body Mass Index 54.87 04/13/2025 9:26 AM EDT documented in this encounter Functional Status * Are you deaf or do you have serious difficulty hearing? Answer Date of Assessment Author No 12/30/2024 2:24 PM EDT Rg RN * Are you blind or do you have serious difficulty seeing, even when wearing glasses? Answer Date of Assessment Author No 12/30/2024 2:24 PM EDT Rg RN * Do you have serious difficulty walking or climbing stairs? Answer Date of Assessment Author No 12/30/2024 2:24 PM EDT Rg RN * Do you have serious difficulty dressing or bathing? Answer Date of Assessment Author No 12/30/2024 2:24 PM EDT Rg RN documented as of this encounter Mental Status * Because of a physical, mental, or emotional condition, do you have serious difficulty concentrating, remembering, or making decisions? (5 years old or older) Answer Entry Date Author No 12/30/2024 2:24 PM EDT Rg RN documented in this encounter Ordered Prescriptions Prescription Sig Dispense Quantity Refills Last Filled Start Date End Date tirzepatide, weight loss, (ZEPBOUND) 2.5 mg/0.5 mL injectionIndicatio ns:Class 3 severe obesity with body mass index (BMI) of 50.0 to 59.9 in adult (CMS/[facility] V24, [facility] V28) Inject 0.5 mL (2.5 mg total) under the skin every 7 (seven) days. 2 mL 04/13/2025 05/13/2025 documented in this encounter Progress Notes * Aly Gayle MD - 04/13/2025 9:30 AM EDTAssociated Problem(s): Class 3 severe obesity with body mass index (BMI) of 50.0 to 59.9 in adult (CMS/[facility] V24, CMS/[facility] V28) Start zepbound Counseled on possible medication side effects Advised to start exercising at least 5 days a week F/u in 3 months Will increase medication dose monthly as tolerated Orders: tirzepatide, weight loss, (ZEPBOUND) 2.5 mg/0.5 mL injection; Inject 0.5 mL (2.5 mg total) under the skin every 7 (seven) days. 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 Continue levothyroxine 100 mcg on Mondays through Saturdays and 150 mcg on Sundays only Will update TSH Orders: Thyroid stimulating hormone with reflex to free t4 and free t3; Future * Aly Gayle MD - 04/13/2025 9:30 AM EDTAssociated Problem(s): Mixed hyperlipidemia Will update lipid panel Advised to start exercising at least 5 days a week Continue with dietary mgt Orders: Lipid panel with reflex to direct LDL; Future * Aly Gayle MD - 04/13/2025 9:30 AM EDTAssociated Problem(s): Asthma Continue symbicort BID and albuterol PRN F/u with pulm as scheduled * Aly Gayle MD - 04/13/2025 9:30 AM EDTAssociated Problem(s): Disc degeneration, lumbar continue gabapentin 300 mg BID. * Aly Gayle MD - 04/13/2025 9:30 AM EDTAssociated Problem(s): Gastroesophageal reflux disease Stable. Continue pantoprazole 40mg daily * Aly Gayle MD - 04/13/2025 9:30 AM EDTAssociated Problem(s): Insomnia Continue lunesta Continue follow up with pscy * Aly Gayle MD - 04/13/2025 9:30 AM EDTAssociated Problem(s): Bipolar disorder with depression (CMS/HCC V24, CMS/HCC V28) Continue follow up with pscy Will update CBC given recent start of Lamotrigine 25mg Orders: CBC and differential; Future * Aly Gayle MD - 04/13/2025 9:30 AM EDTAssociated Problem(s): Mixed obsessional thoughts and acts Continue fluvoxamine daily Continue follow up with pscyh * Aly Gayle MD - 04/13/2025 9:30 AM EDTAssociated Problem(s): Attention deficit hyperactivity disorder (ADHD) Continue vraylar and pscy follow up * Aly Gayle MD - 04/13/2025 9:30 AM EDTAssociated Problem(s): Osteoarthritis of spine with radiculopathy, lumbar region continue gabapentin 300 mg BID. * Aly Gayle MD - 04/13/2025 9:30 AM EDT Images from the original note were not included. Patient Education DASH Diet: Care Instructions Your Care Instructions The DASH diet is an eating plan that can help lower your blood pressure. DASH stands for Dietary Approaches to Stop Hypertension. Hypertension is high blood pressure. The DASH diet focuses on eating foods that are high in calcium, potassium, and magnesium. These nutrients can lower blood pressure. The foods that are highest in these nutrients are fruits, vegetables, low-fat dairy products, nuts, seeds, and legumes. But taking calcium, potassium, and magnesium supplements instead of eating foods that are high in those nutrients does not have the same effect. The DASH diet also includes whole grains, fish, and poultry. The DASH diet is one of several lifestyle changes your doctor may recommend to lower your high blood pressure. Your doctor may also want you to decrease the amount of sodium in your diet. Lowering sodium while following the DASH diet can lower blood pressure even further than just the DASH diet alone. Follow-up care is a moy part of your treatment and safety. Be sure to make and go to all appointments, and call your doctor if you are having problems. It's also a good idea to know your test resultsand keep a list of the medicines you take. How can you care for yourself at home? Following the DASH diet Eat 4 to 5 servings of fruit each day. A serving is 1 medium-sized piece of fruit, 1/2 cup raw or canned fruit, 1/4 cup dried fruit, or 4 ounces (1/2 cup) of fruit juice. Choose fruit more often thanfruit juice. Eat 4 to 5 servings of vegetables each day. A serving is 1 cup of lettuce or raw leafy vegetables, 1/2 cup of chopped or cooked vegetables, or 4 ounces (1/2 cup) of vegetable juice. Choose vegetablesmore often than vegetable juice. Get 2 to 3 servings of low-fat and fat-free dairy each day. A serving is 8 ounces of milk, 1 cup ofyogurt, or 1?? ounces of cheese. Eat 6 to 8 servings of grains each day. A serving is 1 slice of bread, 1 ounce of dry cereal, or 1/2 cup of cooked rice, pasta, or cooked cereal. Try to choose whole-grain products as much as possible. Limit lean meat, poultry, and fish to 6 ounces or less each day. One egg counts as 1 ounce. Eat 4 to 5 servings of nuts, seeds, and legumes (cooked dried beans, lentils, and split peas) each week. A serving is 1/3 cup of nuts, 2 tablespoons of seeds, 2 tablespoons of peanut butter, or 1/2 cup of cooked beans or peas. Limit fats and oils to 2 to 3 servings each day. A serving is 1 teaspoon of vegetable oil or 2 tablespoons of salad dressing. Limit sweets and added sugars to 5 servings or less a week. A serving is 1 tablespoon jelly or jam,1/2 cup sorbet, or 1 cup of lemonade. Eat less than 2,300 milligrams (mg) of sodium a day. If you limit your sodium to 1,500 mg a day, you can lower your blood pressure even more. Be aware that all of these are the suggested number of servings for people who eat 1,800 to 2,000 calories a day. Your recommended number of servings may be different if you need more or fewer calories. Tips for success Start small. Make small changes, and stick with them. Once those changes become habit, add a few more changes. Try some of the following: Make it a goal to eat a fruit or vegetable at every meal and at snacks. This will make it easy to get the recommended amount of fruits and vegetables each day. Try yogurt topped with fruit and nuts for a snack or healthy dessert. Add lettuce, tomato, cucumber, and onion to sandwiches. Have a variety of cut-up vegetables with a low-fat dip as an appetizer instead of chips and dip. Sprinkle sunflower seeds or chopped almonds over salads. Or try adding chopped walnuts or almonds to cooked vegetables. Try some vegetarian meals using beans and peas. Add garbanzo or kidney beans to salads. Make burritos and tacos with mashed alvarez beans or black beans. Where can you learn more? Scan the QR code or Go to [email or web address]://[email or web address].[email or web address]/chela Enter H967 in the search box to learn more about DASH Diet: Care Instructions. Current as of: May 01, 2024 Content Version: 14.5 ?? [id number] [employer]. Care instructions adapted under license by your healthcare professional. If you have questions about a medical condition or this instruction, always ask your healthcare professional. [employer], disclaims any warranty or liability for your use of this information. * Aly Gayle MD - 04/13/2025 9:30 AM EDT Images from the original note were not included. Chief Complaint Coretta Canela is a 24 y.o. female presenting for Weight Management Subjective Obesity: Current weight is 350lbs; BMI 54.87 Diet: lunch- sandwich/meat and cheese; dinner- meat/veg/carb. Eats 2 meals a do. Trying to consume more protein based foods Exercise: none- she has an exercise bike She is interested in trying weight loss medication. Denies personal or family hx of thyroid cancer Denies personal hx of pancreatitis , gastroparesis, or gallstones Reports her insurance [facility] Hypothyroidism: Continues on levothyroxine 100 mcg on Mondays through Saturdays and 150 mcg on Sundays only Lab Results Component Value Date TSH 3.79 10/05/2024 Bipolar disorder with depression/insomnia: She follows with psychiatry. She is continued on Vraylardaily, lamotrigine 25mg(recently started), fluvoxamine daily for OCD and lunesta for sleep. She states her psychiatrist recommended an updated CBC after starting the lamotrigine Asthma: notes she has an appt with Pulmonology next month. Currently on albuterol prn and symbicortBID Lumbar disc disease/DJD L spine: continues on gabapentin 300 mg BID. This has been helpful. Notes flexeril was not helpful so it will be discontinued GERD: Continues on pantoprazole 40mg daily with good effect Now [place] [facility] [place]. Reports she had an appt about 2 weeks ago. 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 PT was recommended( I do not have notes for review) She has a APPLICATION SECURITY SPECIALIST at [facility]. States she will call to make an appointment. The following portions of the patient's history were reviewed by a provider in this encounter and updated as appropriate: Problems Allergies: She is allergic to ketorolac, deshaun flavor, and pineapple. Medications: Current Outpatient Medications Medication Instructions albuterol HFA (Ventolin HFA) 90 mcg/actuation inhaler 1 puff, inhalation, Every 6 hours PRN cariprazine (Vraylar) 4.5 mg capsule Take 1 Capsule by mouth daily. eszopiclone (LUNESTA) 1 mg, Daily fluvoxaMINE (LUVOX) 50 mg, Nightly gabapentin (NEURONTIN) 300 mg, oral, 2 times daily lamoTRIgine (LAMICTAL) 25 mg, oral, Daily levonorgestrel-ethinyl estradiol (SEASONALE) 0.15 mg-30 mcg (91) per tablet TAKE 1 TABLET BY MOUTH DAILY FOR 364 DAYS. levothyroxine (SYNTHROID, LEVOTHROID) 100 mcg tablet TAKE 1 TABLET BY MOUTH ON MONDAYS THROUGH SATURDAYS AND 1&1/2 TABLETS ON SUNDAYS ONLY. pantoprazole (PROTONIX) 40 mg EC tablet TAKE 1 TABLET BY MOUTH EVERY DAY DO NOT CRUSH, CHEW, OR SPLIT Symbicort 80-4.5 mcg/actuation inhaler INHALE 2 PUFFS TWICE A DAY FOR 30 DAYS tirzepatide (weight loss) (ZEPBOUND) 2.5 mg, subcutaneous, Every 7 days Vitamin D3 4,000 Units, oral, Daily Depression Screening (PHQ2/9): Anxiety Screening: Social Influencer of Health (SIOH): Review of Systems: Review of Systems As noted in HPI Objective BP 116/80 (BP Location: Left arm, Patient Position: Sitting, BP Cuff Size: Large adult long) Pulse 88 Temp 36.4 ??C (97.5 ??F) (Temporal) Ht 1.702 m (67.01 ) Wt 159 kg (350 lb 6.4 oz) BMI 54.87 kg/m?? SpO2: 98 % Physical Exam Constitutional: General: She is not in acute distress. Appearance: Normal appearance. She is obese. HENT: Head: Normocephalic and atraumatic. Cardiovascular: Rate and Rhythm: Normal rate and regular rhythm. Pulses: Normal pulses. Heart sounds: Normal heart sounds. No murmur heard. Pulmonary: Effort: Pulmonary effort is normal. No respiratory distress. Breath sounds: Normal breath sounds. Abdominal: Palpations: Abdomen is soft. Tenderness: There is no abdominal tenderness. Neurological: Mental Status: She is alert. Psychiatric: Mood and Affect: Mood normal. Behavior: Behavior normal. Lab Results Component Value Date WBC 8.4 12/30/2024 HGB 14.7 12/30/2024 HCT 45.7 12/30/2024 PLT 255 12/30/2024 CHOL 204 (H) 10/05/2024 TRIG 229 (H) 10/05/2024 HDL 49 10/05/2024 ALT 28 12/30/2024 AST 21 12/30/2024 NA 141 12/30/2024 K 4.6 12/30/2024 CL 110 12/30/2024 CREATININE 0.90 12/30/2024 BUN 11 12/30/2024 CO2 25 12/30/2024 TSH 3.79 10/05/2024 HGBA1C 4.6 12/20/2024 Assessment/Plan Assessment & Plan Class 3 severe obesity with body mass index (BMI) of 50.0 to 59.9 in adult ([facility] V24, [facility] V28) Start zepbound Counseled on possible medication side effects Advised to start exercising at least 5 days a week F/u in 3 months Will increase medication dose monthly as tolerated Orders: tirzepatide, weight loss, (ZEPBOUND) 2.5 mg/0.5 mL injection; Inject 0.5 mL (2.5 mg total) under the skin every 7 (seven) days. 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 Continue levothyroxine 100 mcg on Mondays through Saturdays and 150 mcg on Sundays only Will update TSH Orders: Thyroid stimulating hormone with reflex to free t4 and free t3; Future Other specified attention deficit hyperactivity disorder (ADHD) Continue vraylar and pscy follow up Bipolar disorder with depression (CMS/HCC V24, CMS/HCC V28) Continue follow up with [facility] Will update CBC given recent start of Lamotrigine 25mg Orders: CBC and differential; Future Mixed obsessional thoughts and acts Continue fluvoxamine daily Continue follow up with [facility] Primary insomnia Continue lunesta Continue follow up with [facility] Mixed hyperlipidemia Will update lipid panel Advised to start exercising at least 5 days a week Continue with dietary mgt Orders: Lipid panel with reflex to direct LDL; Future Mild persistent asthma without complication Continue symbicort BID and albuterol PRN F/u with pulm as scheduled Osteoarthritis of spine with radiculopathy, lumbar region continue gabapentin 300 mg BID. Degeneration of intervertebral disc of lumbar region with discogenic back pain continue gabapentin 300 mg BID. Gastroesophageal reflux disease without esophagitis Stable. Continue pantoprazole 40mg daily Cervical cancer screening She will call to make an appt with APPLICATION SECURITY SPECIALIST Defers GC/CH screening Orders: Ambulatory referral to Obstetrics / Gynecology; Future Declines flu vaccine and PCV 20 Advised to obtain updated COVID-vaccine at her local pharmacy. Aly Gayle MD ADULT MEDICINE [address] [address] Dept: [phone] Dept Date of Visit: 04/13/2025 * Sana Ruiz MA - 04/13/2025 9:30 AM EDT Images from the original note were not included. Approved Prior authorization approved Payer: [employer] [phone] Note from payer: CaseId:[id number];Status:Approved;Review Type:Prior Auth;Coverage Start Date:04/14/2025;Coverage End Date:05/12/2025; Approval Details Authorized from April 14, 2025 to May 12, 2025 Electronic appeal: Not supported documented in this encounter Plan of Treatment Upcoming Encounters Date Type Department Care Team (Late st Contact Info) Description 05/16/2025 1:30 PM EDT Office Visit Urogynecology [address] [phone] Beryl León MD [address] [facility] [address] [place] [address] 07/16/2025 2:30 PM EST Office Visit Adult Medicine [place] [address] [phone] Aly Gayle MD [address] [place] [address] Scheduled Referrals Name Type Priority Associated Diagnoses Order Schedule Ambulatory referral to Obstetrics / Gynecology Outpatient Referral Routine Cervical cancer screening 1 Occurrences starting 04/13/2025 until 04/13/2026 documented as of this encounter Results * (ABNORMAL) Lipid panel with reflex to direct LDL (04/13/2025 10:05 AM EDT) Cholesterol 222(H) 0 - 200 mg/dL LAB CHEMISTRY METHOD 04/13/2025 2:14 PM EDT [facility] Triglycerides 121 0 - 150 mg/dL LAB CHEMISTRY METHOD 04/13/2025 2:14 PM EDT [facility] HDL 59 >=40 mg/dL LAB CHEMISTRY METHOD 04/13/2025 2:14 PM EDT [facility] LDL Calculated 139(H) 0 - 100 mg/dL LAB CHEMISTRY METHOD 04/13/2025 2:14 PM EDT [facility] Comment:Estimated LDL Calcul ated using equation: Total cholesterol - HDL cholesterol - (Triglycerides/5) VLDL Cholesterol Josr 24.2 mg/dL LAB CHEMISTRY METHOD 04/13/2025 2:14 PM EDT [facility] Non HDL Chol. (LDL+VLDL) 163(H) <145 mg/dL LAB CHEMISTRY METHOD 04/13/2025 2:14 PM EDT [facility] Chol/HDL Ratio 3.8 0.0 - 4.4 LAB CHEMISTRY METHOD 04/13/2025 2:14 PM EDT [facility] Blood Venous blood specimen / Unknown Venipuncture / Unknown 04/13/2025 10:05 AM EDT 04/13/2025 10:05 AM EDT Aly Gayle MD LAB BLOOD ORDERA BLES Final Result Performing Organization Address City/[facility]/ZIP Co de Phone Number [facility] [address] [place] [address], [place] [phone] * Thyroid stimulating hormone with reflex to free t4 and free t3 (04/13/2025 10:05 AM EDT) TSH 3.55 0.40 - 4.00 mcIU/mL LAB CHEMISTRY METHOD 04/13/2025 2:51 PM EDT [facility] Blood Venous blood specimen / Unknown Venipuncture / Unknown 04/13/2025 10:05 AM EDT 04/13/2025 10:05 AM EDT Aly Gayle MD LAB BLOOD ORDERA BLES Final Result [facility] [address] [place] [address], [place] [phone] documented in this encounter Visit Diagnoses Diagnosis Class 3 severe obesity with body mass index (BMI) of 50.0 to 59.9 in adult ([facility] V24, [facility] V28)- Primary 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 Other specified attention deficit hyperactivity disorder (ADHD) Bipolar disorder with depression ([facility] V24, [facility] V28) Mixed obsessional thoughts and acts Primary insomnia Persistent disorder of initiating or maintaining sleep Mixed hyperlipidemia Mild persistent asthma without complication Osteoarthritis of spine with radiculopathy, lumbar region Degeneration of intervertebral disc of lumbar region with discogenic back pain Gastroesophageal reflux disease without esophagitis Esophageal reflux Cervical cancer screening Screening for malignant neoplasm of the cervix documented in this encounter Discontinued Medications Medication Sig Discontinue Reason Start Date End Da te atomoxetine (STRATTERA) 40 mg capsule Take 1 capsule (40 mg total) by mouth 1 (one) time each day. Swallow capsule whole; do not open. If opened accidentally, do not touch eyes; wash hands immediately (product is an eye irritant). 04/13/2025 zolpidem CR (AMBIEN CR) 6.25 mg CR tablet Take 1 tablet (6.25 mg total) by mouth at bedtime. Do not crush, chew, or split. Max Daily Amount: 6.25 mg 04/13/2025 dexmethylphenidate XR (FOCALIN XR) 40 mg 24 hr capsule Take 1 capsule (40 mg total) by mouth 1 (one) time each day. Do not crush, chew, or split. Max Daily Amount: 40 mg Therapy completed 04/13/2025 fluticasone furoate (Arnuity Ellipta) 100 mcg/actuation blister with device inhalerIndications:Mild intermittent asthma without complication Inhale 1 puff by mouth 1 (one) time each day. Therapy completed 09/27/2024 04/13/2025 DULoxetine (CYMBALTA) [address] capsule Take 1 capsule (30 mg total) by mouth 2 (two) times a day. Therapy completed 01/10/2025 04/13/2025 cyclobenzaprine (FLEXERIL) 10 mg tabletIndications:Osteo arthritis of spine with radiculopathy, lumbar region Take 1 tablet (10 mg total) by mouth at bedtime as needed for muscle spasms. Therapy completed 01/18/2025 04/13/2025 documented as of this encounter Historical Medications * This list may reflect changes made after this encounter. lamoTRIgine (LaMICtal) 25 mg tabletIndications:B ipolar disorder with depression (CMS/HCC V24, CMS/HCC V28) Take 1 tablet (25 mg total) by mouth 1 (one) time each day. 04/13/2025 eszopiclone (LUNESTA) 1 mg tabletIndications:P rimary insomnia Take 1 tablet (1 mg total) by mouth 1 (one) time each day. Max Daily Amount: 1 mg 03/20/2025 Symbicort 80-4.5 mcg/actuation inhalerIndications: Mild persistent asthma without complication INHALE 2 PUFFS TWICE A DAY FOR 30 DAYS 02/12/2025 added in this encounter Additional Health Concerns Assessment Noted Time PHQ-9 Depression Total Score: 11 025 10:44 AM EST documented as of this encounter Care Teams [facility] Hospitalist Relationship Specialty Start Date End Date Aly Gayle MD [address] [place] [address] PCP - General Internal Medicine 04/21/22 documented as of this encounter
--- NOTE | ~2025-04-20 | XR_ITS ---
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 FINDINGS: AP and lateral views of the left knee are submitted. Osseous mineralization is normal. There is no fracture or dislocation. There is mild narrowing of the medial compartment. The soft tissues are unremarkable. There is no joint effusion. XR/XR knee LT 2V IMPRESSION: Mild narrowing of the medial compartment. Electronically signed by: Yaron Bruce MD 04/20/2025 12:54 PM EDT
--- OUTSIDE RECORDS SUMMARY | 2025-04-20 13:58 | XMS_ITS | Clinical Summary ---
Author Organization [facility] Address [address] [place] [address] Phone Care Team Providers Care Strawhat Sizer Name Role Phone Pradeep Villanueva MD Primary [...] SMEAR 2021 Adult Td,Tdap Booster 09/28/2021 09/29/2011 INFLUENZA VACCINE (#1) 2025 08/25/2019 COVID-19 VACCINE ( season) 2025 09/19/2020, 09/03/2020 HIB VACCINES Completed 10/05/2001, 12/25, 2000, Additional history exists MENINGOCOCCAL VACCINES (ACWY) Completed 07/14/2017, 09/29/2011 MENINGOCOCCAL VACCINES (B) Aged Out N o longer eligible based on patient's age to complete this topic Medical Devices Not on file [place] [address] [address] [place] [address] ACO [employer] ACO ARSALAN NOLANY ALLANCE ACO [employer] ACO EQOY ALLANCE ACO EQOY ALLANCE ACO EQOY ALLANCE ACO MORENCISEGUNDO SOTELO ALLANCE ACO Care Teams Strawhat Sizer Relationship Specialty Start Date End Date Pradeep Villanueva MD PCP - General Internal Medicine 05/18/20 Additional Source Comments The information contained in this document represents components of the legal health record. It is not the complete legal health record.[facility]
--- OUTSIDE RECORDS SUMMARY | 2025-04-20 13:58 | XMS_ITS | Encounter Summary ---
Author Organization [facility] Address [address] [place] [address] Phone Care Team Providers Care Front End Software Engineer Name Role Phone Jessica Goss DO Primary Care Provider Unavaila ble Reason for Visit * Reason Comments Med Refill Encounter Details Date Type Department Care Team ([facility] Contact Info) Description 10/09/2018 Refill [facility] [address] [place] [address] [place] [address] Isidro Zuniga MD [address] [place] [address] [place] [address] Axillary hyperhidrosis Social History Tobacco Use Types [...] hyperhidrosis documented in this encounter Care Teams Front End Software Engineer Relationship Specialty Start Date End Date Jessica Goss DO PCP - General Pediatrics 02/09/19 documented as of this encounter
--- OUTSIDE RECORDS SUMMARY | 2025-04-20 13:58 | XMS_ITS | Clinical Summary ---
Author Organization [facility] [address] [place] [address] [place] [phone] Phone Care Team Providers Care Linderman Machine Operator Name Role Phone Aly Gayle MD Primary Care Pr ovider Allergies Active Allergy Reactions Criticality Noted Date Comments Ketorolac 12/31/2022 Other Reaction(s): Rash/Dermatitis Ronaldo Flavor 01/29/2023 Other Reaction(s): Hives/Urticaria Pineapple 01/29/2023 Other Reaction(s): Hives/Urticaria Medications cariprazine (Vraylar) 4.5 mg capsule Take 1 Capsule by mouth daily. 05/15/20 24 Active albuterol HFA (Ventolin HFA) 90 mcg/actuation inhalerIndicati ons:Mild intermittent asthma without complication Inhale 1 puff by mouth every 6 (six) hours if needed for wheezing. 6.7 g 1 09/28/19 25 Active fluvoxaMINE (LUVOX) 50 mg tablet Take 1 tablet (50 mg total) by mouth at bedtime. Active levonorgestrel- ethinyl estradiol (SEASONALE) 0.15 mg-30 mcg (91) per tablet TAKE 1 TABLET BY MOUTH DAILY FOR 364 DAYS. 91 tablet 3 01/17/20 25 Active levothyroxine (SYNTHROID, LEVOTHROID) 100 mcg tabletIndicatio ns:Hypothyroidi sm due to Tomasz's thyroiditis TAKE 1 TABLET BY MOUTH ON MONDAYS THROUGH SATURDAYS AND 1&1/2 TABLETS ON SUNDAYS ONLY. 94 tablet 1 01/19/20 25 Active Vitamin D3 50 mcg (2,000 unit) tablet TAKE 2 TABLETS BY MOUTH EVERY DAY 180 tablet 03/05/20 25 Active pantoprazole (PROTONIX) 40 mg EC tabletIndicatio ns:Gastroesopha geal reflux disease without esophagitis TAKE 1 TABLET BY MOUTH EVERY DAY DO NOT CRUSH, CHEW, OR SPLIT 90 tablet 1 03/28/20 25 Active gabapentin (NEURONTIN) 300 mg capsuleIndicati ons:Osteoarthri tis of spine with radiculopathy, lumbar region Take 1 capsule (300 mg total) by mouth 2 (two) times a day. 180 each 04/09/20 25 2024 Active Symbicort 80-4.5 mcg/actuation inhalerIndicati ons:Mild persistent asthma without complication INHALE 2 PUFFS TWICE A DAY FOR 30 DAYS 02/13/20 25 Active eszopiclone (LUNESTA) 1 mg tabletIndicatio ns:Primary insomnia Take 1 tablet (1 mg total) by mouth 1 (one) time each day. Max Daily Amount: 1 mg 03/20/20 25 Active tirzepatide, weight loss, (ZEPBOUND) 2.5 mg/0.5 mL injectionIndica tions:Class 3 severe obesity with body mass index (BMI) of 50.0 to 59.9 in adult (CMS/HCC V24, CMS/[facility] V28) Inject 0.5 mL (2.5 mg total) under the skin every 7 (seven) days. 2 mL 04/13/20 25 2024 Active lamoTRIgine (LaMICtal) 25 mg tabletIndicatio ns:Bipolar disorder with depression (CMS/HCC V24, CMS/[facility] V28) Take 1 tablet (25 mg total) by mouth 1 (one) time each day. 04/13/20 25 Active fluticasone furoate (Arnuity Ellipta) 100 mcg/actuation blister with device inhalerIndicati ons:Mild intermittent asthma without complication Inhale 1 puff by mouth 1 (one) time each day. 1 each 1 09/28/19 25 2024 Discontinued(T herapy completed) pantoprazole (PROTONIX) 40 mg EC tabletIndicatio ns:Gastroesopha geal reflux disease without esophagitis Take 1 tablet (40 mg total) by mouth 1 (one) time each day. Do not crush, chew, or split. 90 each 1 09/28/19 25 2024 Discontinued dexmethylphenid ate XR (FOCALIN XR) 40 mg 24 hr capsule Take 1 capsule (40 mg total) by mouth 1 (one) time each day. Do not crush, chew, or split. Max Daily Amount: 40 mg 2024 Discontinued(T herapy completed) atomoxetine (STRATTERA) 40 mg capsule Take 1 capsule (40 mg total) by mouth 1 (one) time each day. Swallow capsule whole; do not open. If opened accidentally, do not touch eyes; wash hands immediately (product is an eye irritant). 2024 Discontinued zolpidem CR (AMBIEN CR) 6.25 mg CR tablet Take 1 tablet (6.25 mg total) by mouth at bedtime. Do not crush, chew, or split. Max Daily Amount: 6.25 mg 2024 Discontinued DULoxetine (CYMBALTA) [address] capsule Take 1 capsule (30 mg total) by mouth 2 (two) times a day. 01/11/20 25 2024 Discontinued(T herapy completed) gabapentin (NEURONTIN) 300 mg capsuleIndicati ons:Osteoarthri tis of spine with radiculopathy, lumbar region Take 1 capsule (300 mg total) by mouth at bedtime. 90 each 01/19/20 25 2024 Discontinued(R eorder) cyclobenzaprine (FLEXERIL) 10 mg tabletIndicatio ns:Osteoarthrit is of spine with radiculopathy, lumbar region Take 1 tablet (10 mg total) by mouth at bedtime as needed for muscle spasms. 90 tablet 01/19/20 25 2024 Discontinued(T herapy completed) Active Problems Problem Noted Date Diagnosed Date Mixed obsessional thoughts and acts 04/13/2025 Assessment & Plan (04/13/2025 10:06 AM EDT): Continue fluvoxamine daily Continue follow up with [facility] Bipolar disorder with depression ([facility] V24, C [place]/[facility] V28) 04/13/2025 Assessment & Plan (04/13/2025 10:06 AM EDT): [facility] Will update CBC given recent start of Lamotrigine 25mg Orders: CBC and differential; Future Generalized anxiety disorder 04/13/2025 Osteoarthritis of spine with radiculopathy, lumb ar region 01/18/2025 Assessment & Plan (04/13/2025 10:06 AM EDT): continue gabapentin 300 mg BID. Assessment & Plan (01/18/2025 8:07 AM EDT): [...] muscle spasms. Asthma 07/24/2024 Assessment & Plan (04/13/2025 10:06 AM EDT): Continue symbicort BID and albuterol PRN F/u with pulm as scheduled Assessment & Plan (09/27/2024 7:59 AM EST): [...] 07/24/2024 Attention deficit hyperactivity disorder (ADHD) 05/15/2024 Assessment & Plan (04/13/2025 10:06 AM EDT): Continue vraylar and pscy follow up Mixed hyperlipidemia 05/15/2024 Assessment & Plan (04/13/2025 10:06 AM EDT): Will update lipid panel Advised to start exercising at least 5 days a week Continue with dietary mgt Orders: Lipid panel with reflex to direct LDL; Future Assessment & Plan (09/27/2024 7:59 AM EST): Will update fasting labs. Orders: Lipid panel with reflex to direct LDL; Future Gastroesophageal reflux disease 08/19/2023 Assessment & Plan (04/13/2025 10:06 AM EDT): Stable. Continue pantoprazole 40mg daily Assessment & Plan (09/27/2024 7:59 AM EST): [...] chew, or split. Disc degeneration, lumbar 10/03/2020 Assessment & Plan (04/13/2025 10:06 AM EDT): continue gabapentin 300 mg BID. Insomnia 06/22/2020 Assessment & Plan (04/13/2025 10:06 AM EDT): Continue lunesta Continue follow up with pscyh Impingement syndrome involvi ng patellar fat pad of right knee 06/13/2020 Patellofemoral pain syndrome of right knee 06/13 HSV (herpes simplex virus) infection 09/06/2019 Hyperhidrosis 09/06/2019 Marijuana use 09/06/2019 PTSD (post-traumatic stress disorder) 09/06/2019 Supraventricular tachycardia (CMS/HCC V24) 09/06 Allergic rhinitis 08/28/2019 Assessment & Plan (09/27/2024 7:59 AM EST): Orders: fluticasone propionate (FLONASE) 50 mcg/actuation nasal spray; Administer 1 spray into each nostril 2 (two) times a day. Shake gently. Before first use, prime pump. After use, clean tip and replace cap. Class 3 severe obesity with body mass index (BMI) of 50.0 to 59.9 in adult ([facility] V24, [facility] V28) 08/18/2019 Assessment & Plan (04/13/2025 10:06 AM EDT): Start zepbound Counseled on possible medication side effects Advised to start exercising at least 5 days a week F/u in 3 months Will increase medication dose monthly as tolerated Orders: tirzepatide, weight loss, (ZEPBOUND) 2.5 mg/0.5 mL injection; Inject 0.5 mL (2.5 mg total) under the skin every 7 (seven) days. Assessment & Plan (09/27/2024 7:59 AM EST): She is interested in weight loss medication and is referred to bariatric surgery. Congratulated on weight loss thus far. 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 Assessment & Plan (04/13/2025 10:06 AM EDT): Continue levothyroxine 100 mcg on Mondays through Saturdays and 150 mcg on Sundays only Will update TSH Orders: Thyroid stimulating hormone with reflex to free t4 and free t3; Future Assessment & Plan (01/18/2025 8:07 AM EDT): [...] Problem Noted Date Diagnosed Date Resolved Date Bipolar affective disorder, current episode mixed ([facility] V24, [facility] V28) 05/15/2024 025 Assessment & Plan (09/28/2024 1:02 PM EST): Continue follow-up with psychiatry. Continue Vraylar daily Will send to [facility] to see if they can help patient with transportation issues. 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; Other specified attention deficit hyperactivity disorder (ADHD); Bipolar disorder with depression ([facility] V24, [facility] V28); Mixed obsessional thoughts and acts; Primary insomnia; Mixed hyperlipidemia; Mild persistent asthma without complication; Osteoarthritis of spine with radiculopathy, lumbar region; Degeneration of intervertebral disc of lumbar region with discogenic back pain; Gastroesophageal reflux disease without esophagitis; Cervical cancer screening 03/01/2025 Telephone Adult Medicine [address] [phone] Aly Gayle MD 01/18/2025 7:30 AM EDT Telemedicine Adult Medicine [address] [phone] Aly Gayle MD Osteoarthritis of spine with radiculopathy, lumbar region (Primary Dx); Urge incontinence of urine; 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 from Last 3 Months Immunizations Name Administration Dates Next Due Influenza trivalent, 0.5mL, preservative free (Fluarix; FluLaval; Fluzone) ages 6mo and older (Afluria) 3 years and older 08/25/2019 [employer] SARS-CoV-2 COVID-19, mRNA, LNP-S, preservative free 09/19/2020 [...] obesity with BMI of 4 5.0-49.9, adult ([facility] V24, [facility] V28) 08/18/2019 DX:Morbid obesity wit h BMI of 45.0-49.9, adult ([facility]) Vitamin D deficiency 08/10/2019 DX:Vitamin D deficiency HSV (herpes simplex virus) infection 09/06/2019 DX:HSV (herpes simplex virus) infection Marijuana use 09/06/2019 DX:Marijuana use PTSD (post-traumatic stress disorder) 09/06/2019 DX:PTSD (post-traumatic stress disorder) Hyperhidrosis 09/06/2019 DX:Hyperhidrosis Supraventricular tachycardia ([facility] V24) 09/06/2019 DX:Supraventricular tachycar elyse ([facility]) Right ovarian cyst 05/2021 DX:Right ovar kun [...] Record ed Within the last 3 months, abdoulaye mandujano many times did you visit the emergency [...] care for your loved ones. For example, summer child caregiver or elderly care for an older adult? [...] F) 04/13/2025 9:26 AM EDT Respiratory Rate 18 12/30/2024 3:37 PM EDT Oxygen Saturation 98% 04/13/2025 9:26 AM EDT Inhaled Oxygen Concentration - - Weight 159 kg (350 lb 6.4 oz) 04/13/2025 9:26 AM EDT Height 170.2 cm (5' 7.01 ) 04/13/2025 9:26 AM ED T Body Mass Index 54.87 04/13/2025 9:26 AM EDT Plan of Treatment Upcoming Encounters Date Type Department Care Team (Late st Contact Info) Description 05/16/2025 1:30 PM EDT Office Visit Urogynecology [address] [phone] Beryl León MD [address] [facility] [address] [place] [address] 07/16/2025 2:30 PM EST Office Visit Adult Medicine [address] [phone] Aly Gayle MD [address] [place] [address] Health Maintenance Due Date Last Done Comments [...] Vaccine ( season) 2025 07/02/2022, 09/19/2020, 09/03/2020 Social Influencers of Health Screening 09/26/2025 09/26/2024 Cholesterol Screening (Lipid Panel) 04/13/2030 04/13/2025, 10/05/2024, 02/25/2024, Additional history exists RSV Immunization Adult Patients (1 - 1-dose 75+ series) 2075 HIB Vaccines Completed 10/05/2001, 12/25, 2000, Additional history exists Hepatitis B Vaccines Completed 10/05/2001, 01/17/2001, 2000 IPV Vaccines Completed 03/02/2006, 12/24, 2000, Additional history exists MMR Vaccines Completed 03/02/2006, 08/02/2001 Varicella Vaccines Completed 09/29/2011, 08/02/2001 Meningococcal ACWY Vaccine Completed 07/14/2017, Influenza Vaccine Discontinued 08/25/2019 Hepatitis C Screening Completed 06/08/2021 HIV Screening Completed 03/26/2022 Depression Screening Completed 09/26/2024, 05/15/20 24 Meningococcal B Vaccine Aged Out No l onger eligible based on patient's age to complete this topic RSV Immunization Patients Under 20 months Aged Out No longer eligible based on patient's age to complete this topic Procedures Procedure Name Priority Date/Time Associated Diagnosis Comments CBC WITH AUTO DIFFERENTIAL Routine 04/13/2025 10:05 AM EDT Bipolar disorder with depression ([facility] V24, [facility] V28) THYROID STIMULATING HORMONE WITH REFLEX TO FREE T4 AND FREE T3 Routine 04/13/2025 10:05 AM EDT 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 LIPID PANEL WITH REFLEX TO DIRECT LDL Routine 04/13/2025 10:05 AM EDT Mixed hyperlipidemia CBC AND DIFFERENTIAL Routine 04/13/2025 10:05 AM EDT Bipolar disorder with depression ([facility] V24, [facility] V28) DEPRESSION SCREENING Routine 05/15/2024 GONORRHEA/CHLAMYDIA SCRREENING Routine 12/31/2022 HIV SCREENING Routine 03/26/2022 PAP SMEAR Routine 01/29/2022 from Last 3 Months or Most Recently Relevant to Health Maintenance Results * Thyroid stimulating hormone with reflex to free t4 and free t3 (04/13/2025 10:05 AM EDT) TSH 3.55 0.40 - 4.00 mcIU/mL LAB CHEMISTRY METHOD 04/13/2025 2:51 PM EDT [facility] Blood Venous blood specimen / Unknown Venipuncture / Unknown 04/13/2025 10:05 AM EDT 04/13/2025 10:05 AM EDT us Aly Gayle MD LAB BLOOD ORDERA BLES Final Result [facility] [address] [place] [address], [place] [phone] * (ABNORMAL) Lipid panel with reflex to direct LDL (04/13/2025 10:05 AM EDT) Cholesterol 222(H) 0 - 200 mg/dL LAB CHEMISTRY METHOD 04/13/2025 2:14 PM EDT [facility] Triglycerides 121 0 - 150 mg/dL LAB CHEMISTRY METHOD 04/13/2025 2:14 PM EDT [facility] HDL 59 >=40 mg/dL LAB CHEMISTRY METHOD 04/13/2025 2:14 PM EDT [facility] LDL Calculated 139(H) 0 - 100 mg/dL LAB CHEMISTRY METHOD 04/13/2025 2:14 PM EDT [facility] Comment:Estimated LDL Calcul ated using equation: Total cholesterol - HDL cholesterol - (Triglycerides/5) VLDL Cholesterol Josr 24.2 mg/dL LAB CHEMISTRY METHOD 04/13/2025 2:14 PM EDT [facility] Non HDL Chol. (LDL+VLDL) 163(H) <145 mg/dL LAB CHEMISTRY METHOD 04/13/2025 2:14 PM EDT [facility] Chol/HDL Ratio 3.8 0.0 - 4.4 LAB CHEMISTRY METHOD 04/13/2025 2:14 PM EDT [facility] Blood Venous blood specimen / Unknown Venipuncture / Unknown 04/13/2025 10:05 AM EDT 04/13/2025 10:05 AM EDT Aly Gayle MD LAB BLOOD ORDERA BLES Final Result [facility] [address] [place] [address], [place] [phone] * CBC auto differential (04/13/2025 10:05 AM EDT) Pathologist [facility] WBC 8.0 4.8 - 10.8 K/mcL LAB HEMETOLOGY METHOD 04/13/2025 12:29 PM [facility] RBC 4.70 3.80 - 4.80 M/mcL LAB HEMETOLOGY METHOD 04/13/2025 12:29 PM [facility] Hemoglobin 14.2 11.5 - 16.0 g/dL LAB HEMETOLOGY METHOD 04/13/2025 12:29 PM [facility] Hematocrit 44.2 35.0 - 47.0 % LAB HEMETOLOGY METHOD 04/13/2025 12:29 PM [facility] MCV 94.0 79.0 - 98.0 FL LAB HEMETOLOGY METHOD 04/13/2025 12:29 PM [facility] MCH 30.2 27.0 - 32.0 pcg LAB HEMETOLOGY METHOD 04/13/2025 12:29 PM [facility] MCHC 32.1 32.0 - 37.0 g/dL LAB HEMETOLOGY METHOD 04/13/2025 12:29 PM [facility] RDW 12.2 11.0 - 15.0 % LAB HEMETOLOGY METHOD 04/13/2025 12:29 PM [facility] Platelets 272 130 - 400 K/mcL LAB HEMETOLOGY METHOD 04/13/2025 12:29 PM [facility] MPV 10.9 7.0 - 11.0 FL LAB HEMETOLOGY METHOD 04/13/2025 12:29 PM [facility] NRBC 0.0 <1.0 % LAB HEMETOLOGY METHOD 04/13/2025 12:29 PM [facility] NRBC Absolute 0.00 <0.10 K/mcL LAB HEMETOLOGY METHOD 04/13/2025 12:29 PM [facility] Neutrophils Relative 57.0 % LAB HEMETOLOGY METHOD 04/13[facility]2025 12:[facility] Lymphocytes Relative 32.9 % LAB HEMETOLOGY METHOD 04/13/2025 12:29 PM [facility] Monocytes Relative 5.6 % LAB HEMETOLOGY METHOD 04/13/2025 12:29 PM [facility] Eosinophils Relative 3.5 % LAB HEMETOLOGY METHOD 04/13/2025 12:29 PM [facility] Basophils Relative 0.6 % LAB HEMETOLOGY METHOD 04/13/2025 12:29 PM [facility] Immature Granulocytes Relative 0.4 % LAB HEMETOLOGY METHOD 04/13/2025 12:29 PM [facility] Neutrophils Absolute 4.57 1.50 - 7.00 K/mcL LAB HEMETOLOGY METHOD 04/13/2025 12:29 PM [facility] Lymphocytes Absolute 2.64 1.00 - 5.00 K/mcL LAB HEMETOLOGY METHOD 04/13/2025 12:29 PM [facility] Monocytes Absolute 0.45 0.20 - 1.00 K/mcL LAB HEMETOLOGY METHOD 04/13/2025 12:29 PM [facility] Eosinophils Absolute 0.28 0.00 - 0.50 K/mcL LAB HEMETOLOGY METHOD 04/13/2025 12:29 PM [facility] Basophils Absolute 0.05 0.00 - 0.20 K/mcL LAB HEMETOLOGY METHOD 04/13/2025 12:29 PM [facility] Immature Granulocytes Absolute 0.03 0.00 - 0.03 K/mcL LAB HEMETOLOGY METHOD 04/13/2025 12:29 PM [facility] Blood Venous blood specimen / Unknown Venipuncture / Unknown 04/13/2025 10:05 AM EDT 04/13/2025 10:05 AM EDT Aly Gayle MD LAB BLOOD ORDERA BLES [facility] [address] [place] [address], [place] [phone] * Depression Screening (05/15/2024) HM Depression Screening Abstracted Historical Provider MD HEALTH MAINTENANCE Final Result * Gonorrhea/Chlamydia Screening (12/31/2022) Gonorrhea/Chla mydia Screening Abstracted Historical Provider HEALTH MAINTENANCE Final Result * HIV Screening (03/26/2022) HIV Screening Abstracted Historical Provider HEALTH MAINTENANCE Final Result * Pap smear (01/29/2022) 01/29/2022 Narrative HISTORICAL TESTING LAB RESULTING AGENCY - 02/09/2022 12:39 PM EDT [id number] THINPREP PAP, IMAGED: NEGATIVE FOR SQUAMOUS INTRAEPITHELIAL LESION AND MALIGNANCY. SHIFT IN ARAVIND, SUGGESTIVE OF BACTERIAL VAGINOSIS. YASMEEN CHARLES(ASCP) (CASE ELECTRONICALLY SIGNED 02 06 2022) ADEQUACY: SATISFACTORY ENDOCERVICAL/TRANSFORMATION ZONE COMPONENT PRESENT. SOURCE: THINPREP PAP HPV IF ASCUS, CERVICAL, IMAGED CLINICAL INFORMATION: HPV IF DIAGNOSIS OF ASCUS. [Z12.4] us Suly Prince CNM LAB CYTOLOGY ORDERABLES Final Result HISTORICAL TESTING LAB RESULTING AGENCY from Last 3 Months or Most Recently Relevant to Health Maintenance Insurance [facility] Care Teams Linderman Machine Operator Relationship Specialty Start Date End Date Aly Gayle MD [address] [facility] [place] PCP - General Internal Medicine 04/21/22
--- OUTSIDE RECORDS SUMMARY | 2025-04-20 13:58 | XMS_ITS | Encounter Summary ---
Author Organization [facility] Address [address] [place], [place] [id number] Phone Care Team Providers Care Trim Line Worker Name Role Phone Jessica Goss DO Primary Care Provider Unavaila ble Reason for Visit * Reason Comments Med Refill Encounter Details Date Type Department Care Team ([facility] st Contact Info) Description 06/07/2018 Refill [facility] [address] [place] [address] Cheryl Walters MD [address] [place] [address] Anxiety with depression Social History Tobacco Use [...] depression documented in this encounter Care Teams Trim Line Worker Relationship Specialty Start Date End Date Jessica Goss DO PCP - General Pediatrics 02/09/19 documented as of this encounter
--- OUTSIDE RECORDS SUMMARY | 2025-04-20 13:58 | XMS_ITS | Encounter Summary ---
Author Organization [facility] Address [address] [place] [address] Phone Care Team Providers Care Hazardous Materials Waste Technician Name Role Phone Jessica Goss DO Primary Care Provider Unavaila ble Encounter Details Date Type Department Care Team (Late st Contact Info) Description 12/08/2010 Conversion Encounter [facility] [address] [facility] [place] [address] Social History Tobacco Use Types Packs/Day Years [...] on filedocumented in this encounter Care Teams Hazardous Materials Waste Technician Relationship Specialty Start Date End Date Jessica Goss DO PCP - General Pediatrics 02/09/19 documented as of this encounter
--- OUTSIDE RECORDS SUMMARY | 2025-04-20 13:58 | XMS_ITS | Encounter Summary ---
Author Organization [facility] Address [address] [place] [address] Phone Care Team Providers Care Set Staff Fitter Name Role Phone Jessica Goss DO Primary Care Provider Unavaila ble Reason for Visit * Reason Comments Med Refill Encounter Details Date Type Department Care Team ([facility] st Contact Info) Description 06/19/2018 Refill [facility] [address] [facility] [place] [address] Jessica Goss DO Non-seasonal allergic rhinitis due [...] Primary documented in this encounter Care Teams Set Staff Fitter Relationship Specialty Start Date End Date Jessica Goss DO PCP - General Pediatrics 02/09/19 documented as of this encounter
--- OUTSIDE RECORDS SUMMARY | 2025-04-20 13:58 | XMS_ITS | Clinical Summary ---
Author Organization [facility] Address [address] [place] [address] Care Team Providers Care Supervisor Welding Equipment Repairer Name Role Phone Benjamin Hahn MD Primary Care Provider Allergies Active Allergy Reactions Criticality Noted Date [...] empty stomach. 0 Active Cholecalciferol 1.25 MG (60605 UT) TABS Take by mouth. 4 Tabs [...] age to complete this topic Care Teams Supervisor Welding Equipment Repairer Relationship Specialty Start Date End Date Benjamin Hahn MD [address] [place] [address] PCP - General Hospitalist Medicine 04/10/22
--- OUTSIDE RECORDS SUMMARY | 2025-04-20 13:58 | XMS_ITS | Encounter Summary ---
Author Organization [facility] Address [address] [facility] [place] [address] Phone Care Team Providers Care Electrocardiograph Operator Name Role Phone Pradeep Villanueva MD Primary Care Provider Encounter Details Date Type Department Care Team (Late st Contact Info) Description 05/18/2020 Procedure Pass [facility], Ct Scan - [address] [address] Social History Tobacco Use Types Packs/Day Years [...] on filedocumented in this encounter Care Teams Electrocardiograph Operator Relationship Specialty Start Date End Date Pradeep Villanueva MD PCP - General Internal Medicine 05/18/20 documented as of this encounter Additional Source Comments The information contained in this document represents components of the legal health record. It is not the complete legal health record.[facility]
[2025-04-20 13:59] LABS: Alanine Aminotransferase 24 U/L (0-31); Aspartate Amino Transferase 21 U/L (5-31); Estimated Glomerular Filt Rate > 60
--- OUTSIDE RECORDS SUMMARY | 2025-04-20 13:59 | XMS_ITS | Clinical Summary ---
Author Organization [facility] Address [address] [place] [address] Phone Care Team Providers Care Surveyor'S Assistant Name Role Phone Jessica Goss DO Primary [...] AM EDT): 04/21/2019 - Terese Meyers MD. [facility]. Rule out IBD. Checking intrinsic [...] She reports she has been to a it project manager before and had a normal EKG. She [...] sweating. We will send her to the tappet adjuster. We are rechecking her for B12 deficiency. [...] complete this topic Procedures * Due to [place] state law, this organization might not be sharing sensitive test results. Procedure Name Priority Date/Time Associated Diagnosis Comments CHLAMYDIA AND GONORRHEA, AMPLIFIED Routine 09/05/2018 4:03 PM EST Well adult exam from Last 3 Months or Most Recently Relevant to Health Maintenance Results * Due to [place] state law, this organization might not be sharing sensitive test results. * Chlamydia and Gonorrhea, Amplified (09/05/2018 4:03 PM EST) Chlamydia Trachomatis, DNA Probe NEGATIVE (NEG) [facility] Comment: No Chlamydia Trachomatis RNA detected in this patient's sample (REFERENCE RANGE/NORMAL VALUE: NOT DETECTED) Note: This test uses senior piping designer- mediated amplification method to detect rRNA from C. Trachomatis URINE GC AMP PROBE NEGATIVE (NEG) [facility] Comment: No Neisseria Gonorrhoeae RNA detected in this patient's sample (REFERENCE RANGE/NORMAL VALUE: NOT DETECTED) NOTE: This test uses senior piping designer-mediated amplification method to detect rRNA from N.Gonorrhoeae. [...] without risk of sexual abuse. Consult the [facility] if needed. Contact phone number . Therapeutic failure or success cannot be determined with the Aptima Combo2 assay since nucleic acid may persist following appropriate antimicrobial therapy. The Centers for Disease Control and Prevention (CDC) recommends confirmatory retesting using culture or a different nucleic acid amplification test when positive results occur, if indicated. Testing performed or reported by [facility], a Service of [facility], [address], [place] [address] Urine 09/05/2018 4:03 PM EST 09/06/2018 1:15 AM EST us Cheryl Walters MD LAB MICROBIOLOGY - GENERAL ORDER JESUS Final Result [facility] from Last 3 Months or Most Recently Relevant to Health Maintenance Insurance [facility] OTHER [facility] [facility] [facility] OTHER [employer] [facility] Care Teams Surveyor'S Assistant Relationship Specialty Start Date End Date Jessica Goss DO PCP - General Pediatrics 02/09/19
--- OUTSIDE RECORDS SUMMARY | 2025-04-20 13:59 | XMS_ITS | Encounter Summary ---
Author Organization [facility] Address [address] [place] [address] Phone Care Team Providers Care Airline Dispatcher Name Role Phone Wolfgang Jessica Primary Care Provider Unavaila ble Reason for Visit * Reason Onset Date Comments Med Refill Med Refill 04/13/2019 Encounter Details Date Type Department Care Team ([facility] st Contact Info) Description 04/08/2019 Refill [facility] [address] [place] [address] [place] [address] Isidro Slaughter MD [address] [place] [address] [place] [address] Acute seasonal allergic rhinitis due to pollen [...] pollen documented in this encounter Care Teams Airline Dispatcher Relationship Specialty Start Date End Date Jessica Goss DO PCP - General Pediatrics 02/09/19 documented as of this encounter
--- OUTSIDE RECORDS SUMMARY | 2025-04-20 13:59 | XMS_ITS | Encounter Summary ---
Author Organization [facility] Address [address] [place], [place] [address] Phone Care Team Providers Care Registered Dietetic Technician Name Role Phone Jessica Goss DO Primary Care Provider Unavaila ble Reason for Visit * Reason Comments Med Refill Encounter Details Date Type Department Care Team ([facility] Contact Info) Description 11/17/2018 Refill [facility] [address] [facility] [place] [address] Jessica Goss DO Non-seasonal allergic rhinitis due [...] trigger documented in this encounter Care Teams Registered Dietetic Technician Relationship Specialty Start Date End Date Jessica Goss DO PCP - General Pediatrics 02/09/19 documented as of this encounter
--- OUTSIDE RECORDS SUMMARY | 2025-04-20 13:59 | XMS_ITS | Patient Health Record ---
Author Organization [employer] [facility] Address [address] [place] [address] Care Team Providers Care Commodities Clerk Name Role Phone Unknown, Primary Care Provider Unavailabl e Allergies No Known Allergies Reason For Referral No Information Medications Medication SIG (Take, Route, Frequency, Duration) Notes Start Date End Date Status Sertraline HCl 100 MG Tablet TAKE 2 TABLETS BY MOUTH EVERY DAY FOR 90 DAYS; Duration: 30 days Active Zofran Active Levothyroxine Sodium 50 MCG Tablet take 1 tablet by mouth every morning ON AN EMPTY STOMACH; Duration: 90 Active Sucralfate 1 GM Tablet TAKE 1 TABLET ON AN EMPTY STOMACH ORALLY TWICE A DAY 90 DAYS; Duration: 90 Active Pantoprazole Sodium 40 MG Tablet Delayed Release TAKE 1 TABLET BY MOUTH EVERY DAY FOR 90 DAYS; Duration: 90 Active Vitamin D3 1.25 MG (62225 UT) Capsule 1 capsule Orally Once a week 03/06/2021 Not-Taking Immunizations Vaccine Route Administration Date Status Comme nts COVID-19 Pfizer (use for documenting outside COVID shots) Unknown 09/03/2020 Administered COVID-19 Pfizer (use for documenting outside COVID shots) Unknown 09/19/2020 Administered Flu-Fluarix .5ml Quad Prefilled Unknown 06/05/2021 Refu sed Social History Tobacco Use: Social History Observation Description Date Details (start date - stop date) Current Smoker NA - NA Social History Miscellaneous: Social Info Question Answer Notes Living with: Patient lives with family 2- aunts Drugs/Alcohol: Social Info Question Answer Notes Drugs Have you used drugs other than those for medical reasons in the past 12 months? Yes Marijuana? Yes Alcohol Screen Did you have a drink containing alcohol in the past year? Yes How often did you have a drink containing alcohol in the past year? 2 to 4 times a month (2 points) How many drinks did you have on a typical day when you were drinking in the past year? 5 or 6 drinks (2 points) How often did you have 6 or more drinks on one occasion in the past year? Monthly (2 points) Points 6 Interpretation Positive Tobacco Use: Social Info Question Answer Notes Tobacco Use/Smoking Are you a current smoker How often do you smoke cigarettes? every day How many cigarettes a day do you smoke? 5 or less Passive Smoke Exposure Patient exposed to second hand smoke Yes Section Notes: Smokes off and on x 2 years for a couple months. Motivited to quit d/t cost. Doesn't think she needs help with quitting. Smoking marijuana daily- planning on getting medical marijuana for chronic pain. Smokes off and on x 2 years for a couple months. Motivited to quit d/t cost. Doesn't think she needs help with quitting. Smoking marijuana daily- planning on getting medical marijuana for chronic pain. Smokes off and on x 2 years for a couple months. Motivited to quit d/t cost. Doesn't think she needs help with quitting. Vapes. Smoking marijuana daily- planning on getting medical marijuana for chronic pain. Smokes off and on x 2 years for a couple months. Motivited to quit d/t cost. Doesn't think she needs help with quitting. Vapes. Smoking marijuana daily- planning on getting medical marijuana for chronic pain. Smokes off and on x 2 years for a couple months. Motivited to quit d/t cost. Doesn't think she needs help with quitting. Vapes. Smoking marijuana daily- planning on getting medical marijuana for chronic pain. Smokes off and on x 2 years for a couple months. Motivited to quit d/t cost. Doesn't think she needs help with quitting. Vapes. Smoking marijuana daily- planning on getting medical marijuana for chronic pain. Smokes off and on x 2 years for a couple months. Motivited to quit d/t cost. Doesn't think she needs help with quitting. Vapes. Smoking marijuana daily- planning on getting medical marijuana for chronic pain. Problems Problem Type SNOMED Code ICD Code Onset Dates Problem Status W/U Status Risk Notes Problem Vitamin B12 deficiency (non anemic) (67595155) B12 deficiency (E53.8) Active confirmed Problem Depression (510349901) Depression (F32.9) Active confirmed Problem Body mass index 40+ - severely obese (251229673) BMI 45.0-49.9, adult (Z68.42) Active confirmed Problem Hypothyroid (16030420) Hypothyroid (E03.9) Active confirmed Problem Vitamin D deficiency (86794452) Vitamin D deficiency (E55.9) Active confirmed Problem Elevated blood pressure (32175121) Elevated blood pressure (R03.0) Active confirmed Problem Degeneration of lumbar intervertebral disc (87946229) Lumbar degenerative disc disease (M51.36) Active confirmed Problem Morbid obesity (214313214) Severe obesity (BMI >= 40) (E66.01) Active confirmed Problem Lightheadedness (945632509) Lightheadedness (R42) Active confirmed Problem Anxiety (67291338) Anxiety (F41.9) Active confi rmed Problem Excessive thirst (82885487) Polydipsia (R63.1) Active confirmed Problem 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 Diagnostic PSG if not) 06/05/2021 Insurance Providers Payer Name Payer Address Payer Phone Subscriber Number Group Number Insured Name Patient Relationship to Insured Coverage Start Date Coverage End Date [facility] For You [address] [place] [phone] [id number] Coretta Canela Self - patient is the insured Medical (General) History Medical History History ICD Code Anxiety Athritis Asthma Depression Hypertension Hypothyroidism Surgical History Surgery Date(Month/Year) Hospitalization History Reason Date(Month/Year) kidney infection, PNA and sinus infectio n 08/2019
--- OUTSIDE RECORDS SUMMARY | 2025-04-20 13:59 | XMS_ITS | Encounter Summary ---
Author Organization [facility] Address [address] [place] [address] Phone Care Team Providers Care Waste Disposal Leakage Tester Name Role Phone Jessica Goss Primary Care Provider Unavaila ble Reason for Visit * Reason Onset Date Comments Med Refill 11/15/2018 Encounter Details Date Type Department Care Team ([facility] st Contact Info) Description 11/15/2018 Refill [facility] [address] [place] [address] [place] [address] Cheryl Walters MD [address] [place] [address] Non-seasonal allergic rhinitis due to other allergic [...] trigger documented in this encounter Care Teams Waste Disposal Leakage Tester Relationship Specialty Start Date End Date Jessica Goss DO PCP - General Pediatrics 02/09/19 documented as of this encounter
--- OUTSIDE RECORDS SUMMARY | 2025-04-20 13:59 | XMS_ITS | Clinical Summary ---
Author Organization [facility] Address [address] [place] [address] Care Team Providers Care Entry Level Chemist Name Role Phone Unavailable Primary Care Provider [...] patient's age to complete this topic [place] [address] [place] [address] Medicaid
--- OUTSIDE RECORDS SUMMARY | 2025-04-20 13:59 | XMS_ITS | Encounter Summary ---
Author Organization [facility] Address [address] [place], [place] [phone] Phone Care Team Providers Care Field Laborer Name Role Phone Jessica Goss DO Primary Care Provider Unavaila ble Reason for Visit * Reason Comments Med Refill Encounter Details Date Type Department Care Team ([facility] st Contact Info) Description 04/09/2018 Refill [facility] [address] [facility] [place] [address] Cheryl Walters MD [address] [place] [address] Dysuria Social History Tobacco Use Types Packs/Day [...] Dysuria documented in this encounter Care Teams Field Laborer Relationship Specialty Start Date End Date Jessica Goss DO PCP - General Pediatrics 02/09/19 documented as of this encounter
== END 2025-04-20 12:18 | disposition home or self-care (01) ==
LOC: HO.XRAY 12:17
PROVIDERS: PCP Family Medicine; Visit Provider Internal Medicine Rheumatology
DX: M35.7 Hypermobility syndrome (principal); Q79.62 Hypermobile Ehlers-Danlos syndrome
CPT/HCPCS: 36415; 73560; 82565; 84450; 84460

== ENCOUNTER → 2025-04-20 12:31 | Outpatient (BNV) | payer OTHER, SELFPAY | PROVIDERS: PCP Family Medicine; Visit Provider Radiology Diagnostic Radiology | DX: Q79.62 Hypermobile Ehlers-Danlos syndrome (principal) | CPT/HCPCS: 73560 ==

== ENCOUNTER 2025-07-11 13:59 | Outpatient (AMB) | payer OTHER, SELFPAY ==
[2025-07-11 14:11] VITALS: BP 140/80; PULSE 76; O2SAT 96; BMI 54.9
--- NOTE | 2025-07-11 14:11 | MHC.OFFVIS ---
Vital Signs 07/11/25 14:11 Height 5 ft 7 in Weight 350 lb 5.032 oz BMI 54.9 BP 140/80 H Blood Pressure Location Lt brachial Position Sitting Pulse 76 Pulse Source Pulse Oximeter Pulse Oximetry (%) 96 Oxygen Delivery Method Room Air Intake Visit Reasons: 3 Months Intake Note: Patient presents today for an PSa follow up. Accompanied by: Self / Same As Patient Allergies ketorolac (From Toradol) Adverse Reaction (Intermediate, Verified 07/11/25 14:13) Rash HPI HPI 3 Months: Details: When she was on Zepbound she did not lose weight. She had adverse effect with nausea/vomiting. She has seen deliver driver for weight loss who has recommended her to incorporate more protein in her diet and more frequent eating. She was unable to schedule physical therapy for strengthening. Knee brace that she purchase on [place] did not fit. She continues to have knee pain. She also has had rashes on her extremities that occur yearly since childhood. She was diagnosed with eczema by her PCP but she has not received any treatment. [facility] Medical History Fibromyalgia Shingles Joint pain in fingers of left hand Psoriatic arthritis Joint pain in fingers of right hand Rosacea Allergic rhinitis Iron deficiency Patellofemoral syndrome SVT (supraventricular tachycardia) PTSD (post-traumatic stress disorder) Morbid obesity Depression Anxiety Asthma Hypothyroid Surgical History Hx of colonoscopy Family History Mother Diabetes Arthritis Psoriasis Father Hypertension Maternal Grandmother Colon cancer Maternal Grandfather Myocardial infarction Hypertension Social History Alcohol intake: current Alcohol intake frequency: holidays/special occasions only Patient Tobacco Use Status: Former Tobacco user Tobacco use type: Smokeless Tobacco e-Cigarette/Vaping Use: Currently Using Current occupational status: disabled Physical Exam Exam Exam: General: Comfortable Skin: No lesions seen MSK: Tender to palpate left knee along joint line. No knee effusion. Limited full knee flexion. 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 we discussed importance of rehabilitation. She has not scheduled physical therapy. 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 I have asked her to schedule PT. She will take Tylenol 650 mg 1-2 tablets b.i.d. PRN Avoid oral NSAIDs due to history of uncontrolled GERD and hiatal hernia on PPI Return to clinic in 3 months (2) Lumbar spondylosis: Code(s): M47.816 - Spondylosis without myelopathy or radiculopathy, lumbar region Category: Medical Plan: PT ordered last visit. I have asked her to schedule an appointment. (3) Osteoarthritis of left knee: Comment: She has clinical signs of early osteoarthritis with valgus deformity. X-ray reveals mild osteoarthritis. Hypermobile EDS predisposes individuals to early-onset osteoarthritis. Code(s): M17.12 - Unilateral primary osteoarthritis, left knee Category: Medical Plan: I encouraged her to schedule PT, which was ordered last week. Prescription for knee brace given to patient. Encouraged weight loss. I recommended that she contact PCP for discussion on weight loss with consideration on trying another weight loss medication. Avoid oral NSAIDs due to history of uncontrolled GERD and hiatal hernia on PPI Okay to take Tylenol as needed for pain Return to clinic in 4 months (4) Rash: Comment: She has new skin lesions on her right anterior lateral rocha of unclear etiology. In the past she was told that she has eczema. I reassured patient that her skin lesions are not classic psoriasis. Code(s): R21 - Rash and other nonspecific skin eruption Category: Medical Plan: PCP follow-up for evaluation and management. Medications: New leg brace (Knee Support Brace) As directed Compression sleeve left knee Dx: osteoarthritis knee 1 ea 0RF Coding Level of Care Code Est Pt Level 4 (29710) Add On Problem Visit Only Diagnoses Hypermobile Reddy-Danlos syndrome Q79.62 Lumbar spondylosis M47.816 Osteoarthritis of left knee M17.12 Rash R21
--- OUTSIDE RECORDS SUMMARY | 2025-07-11 18:36 | XMS_ITS | Encounter Summary ---
Author Organization [facility] Address [address] [place] [address] Phone Care Team Providers Care Electronic Gaming Device Supervisor Name Role Phone Jessica Goss DO Primary Care Provider Unavaila ble Reason for Visit * Reason Comments Med Refill Encounter Details Date Type Department Care Team ([facility] st Contact Info) Description 06/19/2018 Refill [facility] [address] [facility] [place] [address] Jessica Goss DO Non-seasonal allergic rhinitis due [...] Primary documented in this encounter Care Teams Electronic Gaming Device Supervisor Relationship Specialty Start Date End Date Jessica Goss DO PCP - General Pediatrics 02/09/19 documented as of this encounter
--- OUTSIDE RECORDS SUMMARY | 2025-07-11 18:36 | XMS_ITS | Encounter Summary ---
Author Organization [facility] Address [address] [place], [place] [phone] Phone Care Team Providers Care Butadiene Convertor Operator Name Role Phone Jessica Goss DO Primary Care Provider Unavaila ble Reason for Visit * Reason Comments Med Refill Encounter Details Date Type Department Care Team ([facility] st Contact Info) Description 04/09/2018 Refill [facility] [address] [facility] [place] [address] Cheryl Walters MD [address] [place] [address] Dysuria Social History Tobacco Use Types Packs/Day [...] Dysuria documented in this encounter Care Teams Butadiene Convertor Operator Relationship Specialty Start Date End Date Jessica Goss DO PCP - General Pediatrics 02/09/19 documented as of this encounter
--- OUTSIDE RECORDS SUMMARY | 2025-07-11 18:36 | XMS_ITS | Encounter Summary ---
Author Organization [facility] Address [address] [place], [place] [phone] Phone Care Team Providers Care Expeller Worker Name Role Phone Jessica Goss DO Primary Care Provider Unavaila ble Reason for Visit * Reason Comments Med Refill Encounter Details Date Type Department Care Team ([facility] Contact Info) Description 11/17/2018 Refill [facility] [address] [facility] [address] Jessica Goss DO Non-seasonal allergic rhinitis due [...] trigger documented in this encounter Care Teams Expeller Worker Relationship Specialty Start Date End Date Jessica Goss DO PCP - General Pediatrics 02/09/19 documented as of this encounter
--- OUTSIDE RECORDS SUMMARY | 2025-07-11 18:36 | XMS_ITS | Clinical Summary ---
Author Organization [facility] Prior to 12/23/24 Address [address] [place] [address] Care Team Providers Care Mechanical Sound Technician Name Role Phone Benjamin Hahn MD Primary [...] empty stomach. 0 Active Cholecalciferol 1.25 MG (07388 UT) TABS Take by mouth. 4 Tabs [...] age to complete this topic Care Teams Mechanical Sound Technician Relationship Specialty Start Date End Date Benjamin Hahn MD [address] [place] [id number] PCP - General Hospitalist Medicine 04/10/22
--- OUTSIDE RECORDS SUMMARY | 2025-07-11 18:36 | XMS_ITS | Encounter Summary ---
Author Organization [facility] Address [address] [place] [phone] Phone Care Team Providers Care Self Pay Specialist Name Role Phone Pradeep Villanueva MD Primary Care Provider Encounter Details Date Type Department Care Team (Late st Contact Info) Description 05/18/2020 Procedure Pass [facility], Ct Scan - [address] [address] Social History Tobacco Use Types Packs/Day Years [...] on filedocumented in this encounter Care Teams Self Pay Specialist Relationship Specialty Start Date End Date Pradeep Villanueva MD PCP - General Internal Medicine 05/18/20 documented as of this encounter Additional Source Comments The information contained in this document represents components of the legal health record. It is not the complete legal health record.[facility]
--- OUTSIDE RECORDS SUMMARY | 2025-07-11 18:36 | XMS_ITS | Clinical Summary ---
Author Organization [facility] Address [address] [place] [address] Phone Care Team Providers Care Marine Oiler Name Role Phone Jessica Goss DO Primary [...] AM EDT): 04/21/2019 - Terese Meyers MD. [facility] Adult GI. Rule out IBD. Checking [...] She reports she has been to a chain sales consultant before and had a normal EKG. She [...] sweating. We will send her to the wearing apparel folder. We are rechecking her for B12 deficiency. [...] complete this topic Procedures * Due to [place] state law, this organization might not be sharing sensitive test results. Procedure Name Priority Date/Time Associated Diagnosis Comments CHLAMYDIA AND GONORRHEA, AMPLIFIED Routine 09/05/2018 4:03 PM EST Well adult exam from Last 3 Months or Most Recently Relevant to Health Maintenance Results * Due to [place] state law, this organization might not be sharing sensitive test results. * Chlamydia and Gonorrhea, Amplified (09/05/2018 4:03 PM EST) Chlamydia Trachomatis, DNA Probe NEGATIVE (NEG) [facility] Comment: No Chlamydia Trachomatis RNA detected in this patient's sample (REFERENCE RANGE/NORMAL VALUE: NOT DETECTED) Note: This test uses divisional storekeeper- mediated amplification method to detect rRNA from C. Trachomatis URINE GC AMP PROBE NEGATIVE (NEG) [facility] Comment: No Neisseria Gonorrhoeae RNA detected in this patient's sample (REFERENCE RANGE/NORMAL VALUE: NOT DETECTED) NOTE: This test uses divisional storekeeper-mediated amplification method to detect rRNA from N.Gonorrhoeae. [...] without risk of sexual abuse. Consult the [facility] if needed. Contact phone number . Therapeutic failure or success cannot be determined with the Aptima Combo2 assay since nucleic acid may persist following appropriate antimicrobial therapy. The Centers for Disease Control and Prevention (CDC) recommends confirmatory retesting using culture or a different nucleic acid amplification test when positive results occur, if indicated. Testing performed or reported by [facility], a Service of [facility], [address], [place] [address] Urine 09/05/2018 4:03 PM EST 09/06/2018 1:15 AM EST us Cheryl Walters MD LAB MICROBIOLOGY - GENERAL ORDER JESUS Final Result [facility] from Last 3 Months or Most Recently Relevant to Health Maintenance Insurance [facility] OTHER ACO [employer] [facility] OTHER ACO [employer] Care Teams Marine Oiler Relationship Specialty Start Date End Date Jessica Goss DO PCP - General Pediatrics 02/09/19
--- OUTSIDE RECORDS SUMMARY | 2025-07-11 18:36 | XMS_ITS | Encounter Summary ---
Author Organization [facility] Address [address] [place] [phone] Phone Care Team Providers Care Solutions Delivery Consultant Name Role Phone Wolfgang Jessica Primary Care Provider Unavaila ble Reason for Visit * Reason Onset Date Comments Med Refill Med Refill 04/13/2019 Encounter Details Date Type Department Care Team ([facility] st Contact Info) Description 04/08/2019 Refill [facility] [address] [place] [address] [place] [phone] Isidro Slaughter MD [address] [place] [address] [place] [address] Acute seasonal allergic rhinitis due to pollen [...] pollen documented in this encounter Care Teams Solutions Delivery Consultant Relationship Specialty Start Date End Date Jessica Goss DO PCP - General Pediatrics 02/09/19 documented as of this encounter
--- OUTSIDE RECORDS SUMMARY | 2025-07-11 18:36 | XMS_ITS | Encounter Summary ---
Author Organization [facility] Address [address] [place] [address] Phone Care Team Providers Care Phlebotomy Technician Name Role Phone Jessica Goss DO Primary Care Provider Unavaila ble Encounter Details Date Type Department Care Team (Late st Contact Info) Description 12/08/2010 Conversion Encounter [facility] [address] [place] [address] Social History Tobacco Use Types Packs/Day Years [...] on filedocumented in this encounter Care Teams Phlebotomy Technician Relationship Specialty Start Date End Date Jessica Goss DO PCP - General Pediatrics 02/09/19 documented as of this encounter
--- OUTSIDE RECORDS SUMMARY | 2025-07-11 18:36 | XMS_ITS | Encounter Summary ---
Author Organization [facility] Address [address] [place], [place] [phone] Phone Care Team Providers Care Party Host/Hostess Name Role Phone Jessica Goss DO Primary Care Provider Unavaila ble Reason for Visit * Reason Comments Med Refill Encounter Details Date Type Department Care Team ([facility] st Contact Info) Description 06/07/2018 Refill [facility] [address] [facility] [place] [address] Cheryl Walters MD [address] [place] [address] Anxiety with depression Social History Tobacco Use [...] depression documented in this encounter Care Teams Party Host/Hostess Relationship Specialty Start Date End Date Jessica Goss DO PCP - General Pediatrics 02/09/19 documented as of this encounter
--- OUTSIDE RECORDS SUMMARY | 2025-07-11 18:36 | XMS_ITS | Encounter Summary ---
Author Organization [facility] Address [address] [place] [address] Care Team Providers Care Power Shovel Operator Name Role Phone Aly Gayle MD Primary Care Pr ovider Encounter Details Date Type Department Care Team ([facility] st Contact Info) Description 05/17/2025 Results Follow-Up Urogynecology - [address] [place] [address] Crystal Lanier RN Social History Tobacco Use Types Packs/Day Years [...] for your loved ones. For example, child psychiatrist or elderly care for an older adult? [...] Date Recorded What is your living situation? Unrecognized valu e 09/26/2024 Comments No Sex and Gender Information Value Date Recorded Sex Assigned at Not on file Legal Sex Female 1:01 AM EST Gender Identity Not on file Sexual Orientation Not on file documented as of this encounter Functional Status * Are you deaf or do you have serious difficulty hearing? Answer Date of Assessment Author No 12/30/2024 2:24 PM [place] RN * Are you blind or do you have serious difficulty seeing, even when wearing glasses? Answer Date of Assessment Author No 12/30/2024 2:24 PM [place] RN * Do you have serious difficulty walking or climbing stairs? Answer Date of Assessment Author No 12/30/2024 2:24 PM Min Loyd RN * Do you have serious difficulty dressing or bathing? Answer Date of Assessment Author No 12/30/2024 2:24 PM [place] RN documented as of this encounter Mental Status * Because of a physical, mental, or emotional condition, do you have serious difficulty concentrating, remembering, or making decisions? (5 years old or older) Answer Entry Date Author No 12/30/2024 2:24 PM EDT Rg RN documented in this encounter Plan of Treatment Upcoming Encounters Date Type Department Care Team (Late st Contact Info) Description 07/16/2025 2:30 PM EST Office Visit Adult Medicine [address] [phone] Aly Gayle MD [address] [place] [address] 08/02/2025 1:00 PM EST Office Visit Obstetrics and Gynecology - [address] [phone] Tracey Valdes CNM [address] [place] [address] documented as of this encounter Visit Diagnoses Not on filedocumented in this encounter Additional Health Concerns Assessment Noted Time PHQ-9 Depression Total Score: 11 025 10:44 AM EST documented as of this encounter Care Teams Power Shovel Operator Relationship Specialty Start Date End Date Aly Gayle MD [address] [place] [address] PCP - General Internal Medicine 04/21/22 documented as of this encounter
--- OUTSIDE RECORDS SUMMARY | 2025-07-11 18:36 | XMS_ITS | Encounter Summary ---
Author Organization [facility] Address [address] [place] [address] Phone Care Team Providers Care Wire Annealer Name Role Phone Jessica Goss DO Primary Care Provider Unavaila ble Reason for Visit * Reason Comments Med Refill Encounter Details Date Type Department Care Team ([facility] Contact Info) Description 10/09/2018 Refill [facility] [address] [place] [address] [place] [address] Isidro Zuniga MD [address] [place] [address] [place] [address] Axillary hyperhidrosis Social History Tobacco Use Types [...] hyperhidrosis documented in this encounter Care Teams Wire Annealer Relationship Specialty Start Date End Date Jessica Goss DO PCP - General Pediatrics 02/09/19 documented as of this encounter
--- OUTSIDE RECORDS SUMMARY | 2025-07-11 18:36 | XMS_ITS | Encounter Summary ---
Author Organization [facility] Address [address] [place] [address] Phone Care Team Providers Care Respiratory Therapy Aide Name Role Phone Jessica Goss Primary Care Provider Unavaila ble Reason for Visit * Reason Onset Date Comments Med Refill 11/15/2018 Encounter Details Date Type Department Care Team ([facility] st Contact Info) Description 11/15/2018 Refill [facility] [address] [place] [address] [place] [address] Cheryl Walters MD [address] [place] [address] Non-seasonal allergic rhinitis due to other allergic [...] trigger documented in this encounter Care Teams Respiratory Therapy Aide Relationship Specialty Start Date End Date Jessica Goss DO PCP - General Pediatrics 02/09/19 documented as of this encounter
--- OUTSIDE RECORDS SUMMARY | 2025-07-11 18:36 | XMS_ITS | Clinical Summary ---
Author Organization [facility] Address [address] [place] [address] Phone Care Team Providers Care Shank Sorter Name Role Phone Pradeep Villanueva MD Primary [...] HPV VACCINES (1 - 3-dose series) 2015 HEPATITIS A VACCINES (2 of 2 - [...] topic Medical Devices Not on file Insurance [employer] ACO [employer] A[employer] [facility] Care Teams Shank Sorter Relationship Specialty Start Date End Date Pradeep Villanueva MD PCP - General Internal Medicine 05/18/20 Additional Source Comments The information contained in this document represents components of the legal health record. It is not the complete legal health record.[facility]
--- OUTSIDE RECORDS SUMMARY | 2025-07-11 18:37 | XMS_ITS | Clinical Summary ---
Author Organization [facility] [address] [place] [address] [place] [phone] Phone Care Team Providers Care [employer] Name Role Phone Aly Gayle MD Primary Care Pr ovider Allergies Active Allergy Reactions Criticality Noted Date Comments Ketorolac Rash Low 06/12/2021 Other Reaction(s): Rash/Dermatitis [place] Flavor 01/29/2023 Other Reaction(s): Hives/Urticaria Pineapple 01/29/2023 Other Reaction(s): Hives/Urticaria Medications cariprazine (Vraylar) 4.5 mg capsule Take 1 Capsule by mouth daily. 05/15/20 24 Active albuterol HFA (Ventolin HFA) 90 mcg/actuation inhalerIndicatio ns:Mild intermittent asthma without complication Inhale 1 puff by mouth every 6 (six) hours if needed for wheezing. 6.7 g 1 09/28/19 25 Active fluvoxaMINE (LUVOX) 50 mg tablet Take 1 tablet (50 mg total) by mouth at bedtime. Active levonorgestrel-e thinyl estradiol (SEASONALE) 0.15 mg-30 mcg (91) per tablet TAKE 1 TABLET BY MOUTH DAILY FOR 364 DAYS. 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 94 tablet 1 01/19/20 25 Active pantoprazole (PROTONIX) 40 mg EC tabletIndication s:Gastroesophage al reflux disease without esophagitis TAKE 1 TABLET BY MOUTH EVERY DAY DO NOT CRUSH, CHEW, OR SPLIT 90 tablet 1 03/28/20 25 Active gabapentin (NEURONTIN) 300 mg capsuleIndicatio ns:Osteoarthriti s of spine with radiculopathy, lumbar region Take 1 capsule (300 mg total) by mouth 2 (two) times a day. 180 each 04/09/20 25 Active Symbicort 80-4.5 mcg/actuation inhalerIndicatio ns:Mild persistent asthma without complication INHALE 2 PUFFS TWICE A DAY FOR 30 DAYS 02/13/20 25 Active eszopiclone (LUNESTA) 1 mg tabletIndication s:Primary insomnia Take 1 tablet (1 mg total) by mouth 1 (one) time each day. Max Daily Amount: 1 mg 03/20/20 25 Active lamoTRIgine (LaMICtal) 25 mg tabletIndication s:Bipolar disorder with depression (CMS/HCC V24, CMS/HCC V28) Take 1 tablet (25 mg total) by mouth 1 (one) time each day. 04/13/20 25 Active Vitamin D3 50 mcg (2,000 unit) tablet TAKE 2 TABLETS BY MOUTH EVERY DAY 180 tablet 1 06/22/20 25 Active Vitamin D3 50 mcg (2,000 unit) tablet TAKE 2 TABLETS BY MOUTH EVERY DAY 180 tablet 03/05/20 25 025 Discontinued Active Problems Problem Noted Date Diagnosed Date Mixed obsessional thoughts and acts 04/13/2025 Assessment & Plan (04/13/2025 10:06 AM EDT): Continue fluvoxamine daily Continue follow up with [facility] Bipolar disorder with depression 04/13/2025 Assessment & Plan (04/13/2025 10:06 AM EDT): Continue follow up with [facility] Will update CBC given recent start of [...] PTSD (post-traumatic stress disorder) 09/06/2019 Supraventricular tachycardia 09/06/2019 Allergic rhinitis 08/28/2019 Assessment & Plan (09/27/2024 7:59 AM EST): Orders: fluticasone propionate (FLONASE) 50 mcg/actuation nasal spray; Administer 1 spray into each nostril 2 (two) times a day. Shake gently. Before first use, prime pump. After use, clean tip and replace cap. Class 3 severe obesity with body mass index (BMI) of 50.0 to 59.9 in adult 08/18/2019 Assessment & Plan (04/13/2025 10:06 AM [...] Date Bipolar affective disorder, current episode mixed 05/15/2024 04/13/2025 Assessment & Plan (09/28/2024 1:02 PM EST): Continue follow-up with psychiatry. Continue Vraylar daily Will send to [facility] to see if they can help patient with transportation issues. Anxiety 08/28/2019 09/27/2024 Anxiety and depression 08/28/201904/13 Encounters Date Type Department Care Team Description 07/03/2025 Telephone Obstetrics and Gynecology - [address] [phone] Elana Boo CNM 06/28/2025 11:05 AM EST Lab Draw Station - [address] Moderate depressed bipolar I disorder (CMS/HCC V24, CMS/HCC V28) 06/13/2025 9:50 AM EST Lab Draw Station - [address] Moderate depressed bipolar I disorder (CMS/HCC V24, CMS/HCC V28) (Primary Dx) 06/07/2025 9:25 AM EST Lab Draw Station - [address] Moderate depressed bipolar I disorder (CMS/HCC V24, CMS/HCC V28) (Primary Dx) 06/07/2025 Telephone Urogynecology - [address] [phone] Angeline Cruz MA 05/30/2025 10:00 AM EST Lab Draw Station - [address] Moderate depressed bipolar I disorder (CMS/HCC V24, CMS/HCC V28) 05/17/2025 Results Follow-Up Urogynecology - [address] [place] [address] Crystal Lanier RN 05/16/2025 1:30 PM EDT Office Visit Urogynecology - [address] [phone] Beryl León MD Stress incontinence (Primary Dx); Urgency of urination; Urinary frequency 04/13/2025 9:30 AM EDT Office Visit Adult Medicine 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; Other specified attention deficit hyperactivity disorder (ADHD); Bipolar disorder with depression ([facility] V24, [facility] V28); Mixed obsessional thoughts and acts; Primary insomnia; Mixed hyperlipidemia; Mild persistent asthma without complication; Osteoarthritis of spine with radiculopathy, lumbar region; Degeneration of intervertebral disc of lumbar region with discogenic back pain; Gastroesophageal reflux disease without esophagitis; Cervical cancer screening from Last 3 Months Immunizations Immunization Administration Dates Next Due Influenza trivalent, 0.5mL, preservative free (Fluarix; FluLaval; Fluzone) ages 6mo and older (Afluria) 3 years and older 08/25/2019 [place] SARS-CoV-2 COVID-19, mRNA, LNP-S, preservative free 09/19/2020 [...] obesity with BMI of 4 5.0-49.9, adult ([facility] V24, [facility] V28) 08/18/2019 DX:Morbid obesity wit h BMI of 45.0-49.9, adult ([facility]) Vitamin D deficiency 08/10/2019 DX:Vitamin D deficiency HSV (herpes simplex virus) infection 09/06/2019 DX:HSV (herpes simplex virus) infection Marijuana use 09/06/2019 DX:Marijuana use PTSD (post-traumatic stress disorder) 09/06/2019 DX:PTSD (post-traumatic stress disorder) Hyperhidrosis 09/06/2019 DX:Hyperhidrosis Supraventricular tachycardia ([facility] V24) 09/06/2019 DX:Supraventricular tachycar elyse (HCC) Right ovarian cyst 05/2021 DX:Right ovar kun [...] for your loved ones. For example, child welfare caseworker or elderly care for an older adult? [...] Sign Reading Time Taken Comments Blood Pressure 126/91 05/16/2025 1:30 PM EDT Pulse 97 05/16/2025 1:30 PM EDT Temperature 36.4 C (97.5 F) 04/13/2025 9:26 AM EDT Respiratory Rate 18 12/30/2024 3:37 PM EDT Oxygen Saturation 98% 04/13/2025 9:26 AM EDT Inhaled Oxygen Concentration - - Weight 156 kg (345 lb) 05/16/2025 1:30 PM EDT Height 170.2 cm (5' 7.01 ) 04/13/2025 9:26 AM ED T Body Mass Index 54.02 04/13/2025 9:26 AM EDT Plan of Treatment Upcoming Encounters Date Type Department Care Team (Late st Contact Info) Description 07/16/2025 2:30 PM EST Office Visit Adult Medicine [address], [place] [phone] Aly Gayle MD [address] [place], [place] 08/02/2025 1:00 PM EST Office Visit Obstetrics and Gynecology - [address] [phone] Tracey Valdes CNM [address] [place], [place] Health Maintenance Due Date Last Done Comments Drug Screen 2000 Non-Opioid Controlled Substance Agreement 2000 Pneumococcal Vaccine: Pediatrics (0 to 5 Years) and At-Risk Patients (6 to 49 Years) (1 of 1 - PPSV23, PCV20, or PCV21) 2006 07/16/2003, 01/17/2001, 2000, Additional history exists HPV Vaccines (1 - 3-dose series) 2015 Hepatitis A Vaccines (2 of 2 - 2-dose series) 01/12/2018 07/14/2017 DTaP,Tdap,and Td Vaccines (7 - Td or Tdap) 09/28/2021 09/29/2011, 08/28/2005, 01/09/2002, Additional history exists Cervical Cancer Screening: Pap Smear 01/29/2025 01/29/2022, 01/29/2022 COVID-19 Vaccine ( season) 2025 [...] Screening Completed 06/08/2021 HIV Screening Completed 03/26/2022 Gonorrhea/Chlamydia Screening Discontinued 12/31/2022 Depression Screening Completed 09/26/2024, 05/15/20 Meningococcal B Vaccine Aged Out No l onger eligible based on patient's age to complete this topic RSV Immunization Patients Under 20 months Aged Out No longer eligible based on patient's age to complete this topic Procedures Procedure Name Priority Date/Time Associated Diagnosis Comments COMPREHENSIVE METABOLIC PANEL Routine 06/28/2025 11:09 AM EST Moderate depressed bipolar I disorder (CMS/HCC V24, CMS/HCC V28) LITHIUM LEVEL Routine 06/28/2025 11:09 AM EST Moderate depressed bipolar I disorder (CMS/HCC V24, CMS/HCC V28) COMPREHENSIVE METABOLIC PANEL Routine 06/13/2025 9:56 AM EST Moderate depressed bipolar I disorder (CMS/HCC V24, CMS/HCC V28) LITHIUM LEVEL Routine 06/13/2025 9:56 AM EST Moderate depressed bipolar I disorder (CMS/HCC V24, CMS/HCC V28) COMPREHENSIVE METABOLIC PANEL Routine 06/07/2025 9:31 AM EST Moderate depressed bipolar I disorder (CMS/HCC V24, CMS/HCC V28) LITHIUM LEVEL Routine 06/07/2025 9:31 AM EST Moderate depressed bipolar I disorder (CMS/HCC V24, CMS/HCC V28) COMPREHENSIVE METABOLIC PANEL Routine 05/30/2025 10:08 AM EST Moderate depressed bipolar I disorder (CMS/HCC V24, CMS/HCC V28) LITHIUM LEVEL Routine 05/30/2025 10:08 AM EST Moderate depressed bipolar I disorder (CMS/HCC V24, CMS/HCC V28) MURPHY URINE CULTURE TUBE Routine 05/17/20 2:03 PM EDT Urgency of urination Urinary frequency Stress incontinence EXTRA TUBES Routine 05/17/2025 2:03 PM EDT Urgency of urination Urinary frequency Stress incontinence CULTURE URINE Routine 05/16/2025 2:03 PM EDT Urgency of urination Urinary frequency POC URINE AUTO W/O MICRO Routine 05/16/2025 2:00 PM EDT Urgency of urination Urinary frequency COMPREHENSIVE METABOLIC PANEL Routine 05/16/2025 1:16 PM EDT Moderate depressed bipolar I disorder (CMS/HCC V24, CMS/HCC V28) PHOSPHORUS Routine 05/16/2025 1:16 PM EDT Moderate depressed bipolar I disorder (CMS/HCC V24, CMS/HCC V28) HEMOGLOBIN A1C Routine 05/16/2025 1:16 PM EDT Moderate depressed bipolar I disorder (CMS/HCC V24, CMS/HCC V28) TRIIODOTHYRONINE FREE Routine 05/16/2025 1:16 PM EDT Moderate depressed bipolar I disorder (CMS/HCC V24, CMS/HCC V28) THYROXINE FREE Routine 05/16/2025 1:16 PM EDT Moderate depressed bipolar I disorder (CMS/HCC V24, CMS/HCC V28) PROTHROMBIN TIME WITH INR Routine 05/16/2025 1:16 PM EDT Moderate depressed bipolar I disorder (CMS/HCC V24, CMS/HCC V28) BILIRUBIN, DIRECT Routine 05/16/2025 1:1 6 PM EDT Moderate depressed bipolar I disorder (CMS/HCC V24, CMS/HCC V28) THYROID STIMULATING HORMONE Routine 05/16/2025 1:16 PM EDT Moderate depressed bipolar I disorder (CMS/HCC V24, CMS/HCC V28) CBC WITH AUTO DIFFERENTIAL Routine 04/13/2025 10:05 AM EDT Bipolar disorder with depression (CMS/HCC V24, CMS/HCC V28) THYROID STIMULATING HORMONE WITH REFLEX TO FREE T4 AND FREE T3 Routine 04/13/2025 10:05 AM EDT 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 [place] Level 0.5(L) 0.6 - 1.2 mEq/L 06/28/2025 4:50 PM EST ASHLEIGH GONZALES [place] ([facility]) [facility] Blood Venous blood specimen / Unknown Venipuncture / Unknown 06/28/2025 11:09 AM EST 06/28/2025 11:09 AM EST us Gertrude MANN LAB BLOOD ORDERABLES Final Re sult [facility] [address] [place] [address], [place] [phone] * (ABNORMAL) Comprehensive metabolic panel (06/28/2025 11:09 AM EST) Only the most recent of5 resultswithin the time period is included. Sodium 137 133 - 145 mmol/L 06/28/2025 2:24 PM [facility] Potassium 4.0 3.5 - 5.5 mmol/L 06/28/2025 2:24 PM [facility] Chloride 105 96 - 110 mmol/L 06/28/2025 2:24 PM [facility] CO2 21 21 - 32 mmol/L 06/28/2025 2:24 PM [facility] Anion Gap 11 3 - 11 06/28/2025 2:24 PM [facility] Glucose 105(H) 70 - 100 mg/dL 06/28/2025 2:24 PM [facility] BUN 10 5 - 25 mg/dL 06/28/2025 2:24 PM [facility] Creatinine 1.02 0.50 - 1.10 mg/dL 06/28/2025 2:24 PM [facility] eGFR 79 >=60 mL/min/1. 73m2 06/28/2025 2:24 PM [facility] Comment:Calculation based on the Chronic Kidney Disease Epidemiology Collaboration (CKD-EPI) equation refit without adjustment for race. BUN/Creatinine Ratio 9.8 06/28/2025 2:24 PM [facility] Calcium 9.1 8.5 - 10.5 mg/dL 06/28/2025 2:24 PM [facility] AST (SGOT) 19 10 - 42 unit/L 06/28/2025 2:24 PM [facility] ALT (SGPT) 20 10 - 60 unit/L 06/28/2025 2:[address] [facility] Alkaline Phosphatase 84 42 - 121 unit/L 06/28/2025 2:24 PM [facility] Total Protein 7.0 6.0 - 8.0 g/dL 06/28/2025 2:24 PM [facility] Albumin 4.4 3.2 - 5.0 g/dL 06/28/2025 2:24 PM [facility] Total Bilirubin 0.3 0.0 - 1.4 mg/dL 06/28/2025 2:24 PM [facility] Blood Venous blood specimen / Unknown Venipuncture / Unknown 06/28/2025 11:09 AM EST 06/28/2025 11:09 AM EST us Gertrude MANN LAB BLOOD ORDERABLES Final Re sult [facility] [address] [place] [address], [place] [phone] * Murphy urine culture tube (05/17/2025 2:03 PM EDT) Extra Tube Hold for add-ons. 05/18/2025 11:[address] [facility] Comment:Auto resulted. Urine Urine specimen obtained by clean catch procedure / Unknown Non-blood Collection / Unknown 05/17/2025 2:03 PM EDT 05/18/2025 9:17 AM EDT us Aly Gayle MD LAB URINE ORDERA BLES Final Result [facility] [address] [place] [address], [place] [phone] * Culture urine (05/16/2025 2:03 PM EDT) Culture, Urine 10,000-49,000 CFU/mL Mixed urogenital aravind, no uropathogens present. Suggest repeat specimen if clinically indicated. 05/18/2025 11:[address] [facility] Urine Urinary bladder structure / Unknown Non-blood Collection / Unknown 05/16/2025 2:03 PM EDT 05/16/2025 2:03 PM EDT Beryl León MD LAB MICROBIOLOGY - GENERAL ORDLou HERNANDEZ Final Result [facility] [address] [place] [address], [place] [phone] * (ABNORMAL) POC Urine Auto W/O Micro (05/16/2025 2:00 PM EDT) [facility] Glucose UA POC Negative Negative, Trace mg/dL Bilirubin UA POC Negative Negative Ketones UA POC Trace(A) Negative Specific Streeter UA POC >=1.030 Blood UA POC Trace - Intact(A) Negative PH UA POC 5.5 Protein UA POC Trace(A) Negative mg/dL Urobilinogen UA POC 0.2 E.U./dL 0.2 E.U./dL, 1.0 E.U./dL, 8 , Unable to interpret due to interfering substances mg/dL Nitrite UA POC Negative Negative Leukocytes UA POC Negative Negative Urine Urine specimen obtained by clean catch procedure / Unknown 05/16/2025 2:00 PM EDT Beryl León MD POINT OF CARE TEST ENTER/EDIT O RDERABLES Final Result * Prothrombin time with INR (05/16/2025 1:16 PM EDT) [facility] Protime 11.1 10.6 - 13.9 sec LAB COAGULATION METHOD 05/16/2025 4:[address] [facility] INR 0.9 LAB COAGULATION METHOD 05/16/2025 4:[address] [facility] Blood Venous blood specimen / Unknown Venipuncture / Unknown 05/16/2025 1:16 PM EDT 05/16/2025 1:16 PM EDT Gertrude MANN LAB BLOOD ORDERABLES Final Re sult Performing Organization Address [facility]/ZIP Co de Phone Number [facility] [address] [place] [address], [place] [phone] * Triiodothyronine free (05/16/2025 1:16 PM EDT) T3, Free 381 230 - 420 pcg/dL LAB CHEMISTRY METHOD 05/16/2025 5:[address] [facility] Blood Venous blood specimen / Unknown Venipuncture / Unknown 05/16/2025 1:16 PM EDT 05/16/2025 1:16 PM EDT Gertrude MANN LAB BLOOD ORDERABLES Final Re sult Performing Organization Address [facility] de Phone Number [facility] [address] [place] [address], [place] [phone] * Thyroid stimulating hormone (05/16/2025 1:16 PM EDT) TSH 2.33 0.40 - 4.00 mcIU/mL LAB CHEMISTRY METHOD 05/16/2025 5:[address] [facility] Blood Venous blood specimen / Unknown Venipuncture / Unknown 05/16/2025 1:16 PM EDT 05/16/2025 1:16 PM EDT Gertrude MANN LAB BLOOD ORDERABLES Final Re sult Performing Organization Address [facility]/ZIP Co de Phone Number [facility] [address] [place] [address], [place] [phone] * Thyroxine free (05/16/2025 1:16 PM EDT) Free T4 1.36 0.70 - 1.80 ng/dL LAB CHEMISTRY METHOD 05/16/2025 5:[address] [facility] Blood Venous blood specimen / Unknown Venipuncture / Unknown 05/16/2025 1:16 PM EDT 05/16/2025 1:16 PM EDT Gertrude MANN LAB BLOOD ORDERABLES Final Re sult Performing Organization Address [facility]/ZIP Co de Phone Number [facility] [address] [place] [address], [place] [phone] * (ABNORMAL) Phosphorus (05/16/2025 1:16 PM EDT) Pathologist [facility] Phosphorus 2.4(L) 2.5 - 4.5 mg/dL LAB CHEMISTRY METHOD 05/16/2025 4:[address] [facility] Blood Venous blood specimen / Unknown Venipuncture / Unknown 05/16/2025 1:16 PM EDT 05/16/2025 1:16 PM EDT Gertrude MANN LAB BLOOD ORDERABLES Final Re sult Performing Organization Address City/[facility]/ZIP Co de Phone Number [facility] [address] [place] [address], [place] [phone] * Hemoglobin A1c (05/16/2025 1:16 PM EDT) Hemoglobin A1C 4.9 <6.5 % LAB CHEMISTRY METHOD 05/16/2025 9:[address] [facility] Mean Bld Glu Estim. 94 mg/dL LAB CHEMISTRY METHOD 05/16/2025 9:[address] [facility] Blood Venous blood specimen / Unknown Venipuncture / Unknown 05/16/2025 1:16 PM EDT 05/16/2025 1:16 PM EDT Gertrude MANN LAB BLOOD ORDERABLES Final Re sult Performing Organization Address [facility]/ZIP Co de Phone Number [facility] [address] [place] [address], [place] [phone] * Bilirubin, direct (05/16/2025 1:16 PM EDT) Bilirubin, Direct <0.1 0.0 - 0.3 mg/dL LAB CHEMISTRY METHOD 05/16/2025 4:[address] [facility] Blood Venous blood specimen / Unknown Venipuncture / Unknown 05/16/2025 1:16 PM EDT 05/16/2025 1:16 PM EDT Gertrude MANN LAB BLOOD ORDERABLES Final Re sult Performing Organization Address [facility] Co de Phone Number [facility] [address] [place] [address], [place] [phone] * Thyroid stimulating hormone with reflex to free t4 and free t3 (04/13/2025 10:05 AM EDT) [facility] TSH 3.55 0.40 - 4.00 mcIU/mL LAB CHEMISTRY METHOD 04/13/2025 2:[address] [facility] Blood Venous blood specimen / Unknown Venipuncture / Unknown 04/13/2025 10:05 AM EDT 04/13/2025 10:05 AM EDT Aly Gayle MD LAB BLOOD ORDERA BLES Final Result Performing Organization Address [facility] Co de Phone Number [facility] [address] [place] [address], [place] [phone] * (ABNORMAL) Lipid panel with reflex to direct LDL (04/13/2025 10:05 AM EDT) Cholesterol 222(H) 0 - 200 mg/dL LAB CHEMISTRY METHOD 04/13/2025 2:[address] [facility] Triglycerides 121 0 - 150 mg/dL LAB CHEMISTRY METHOD 04/13/2025 2:[address] [facility] HDL 59 >=40 mg/dL LAB CHEMISTRY METHOD 04/13/2025 2:[address] [facility] LDL Calculated 139(H) 0 - 100 mg/dL LAB CHEMISTRY METHOD 04/13/2025 2:[address] [facility] Comment:Estimated LDL Calcul ated using equation: Total cholesterol - HDL cholesterol - (Triglycerides/5) VLDL Cholesterol Josr 24.2 mg/dL LAB CHEMISTRY METHOD 04/13/2025 2:[address] [facility] Non HDL Chol. (LDL+VLDL) 163(H) <145 mg/dL LAB CHEMISTRY METHOD 04/13/2025 2:[address] [facility] Chol/HDL Ratio 3.8 0.0 - 4.4 LAB CHEMISTRY METHOD 04/13/2025 2:[address] [facility] Blood Venous blood specimen / Unknown Venipuncture / Unknown 04/13/2025 10:05 AM EDT 04/13/2025 10:05 AM EDT Aly Gayle MD LAB BLOOD ORDERA BLES Final Result [facility] [address] [place] [address], * CBC auto differential (04/13/2025 10:05 AM EDT) Pathologist [facility] WBC 8.0 4.8 - 10.8 K/mcL LAB HEMETOLOGY METHOD 04/13/2025 12:[address] [facility] RBC 4.70 3.80 - 4.80 M/mcL LAB HEMETOLOGY [facility] Hemoglobin 14.2 11.5 - 16.0 g/dL LAB HEMETOLOGY METHOD 04/13/2025 12:29 PM [facility] Hematocrit 44.2 35.0 - 47.0 % LAB HEMETOLOGY METHOD 04/13/2025 12:29 PM [facility] MCV 94.0 79.0 - 98.0 FL LAB HEMETOLOGY METHOD 04/13/2025 12:29 PM [facility] MCH 30.2 27.0 - 32.0 pcg LAB HEMETOLOGY METHOD 04/13/2025 12:29 PM [facility] MCHC 32.1 32.0 - 37.0 g/dL LAB HEMETOLOGY METHOD 04/13/2025 12:29 PM [facility] RDW 12.2 11.0 - 15.0 % LAB HEMETOLOGY METHOD 04/13/2025 12:29 PM [facility] Platelets 272 130 - 400 K/mcL LAB HEMETOLOGY METHOD 04/13/2025 12:29 PM [facility] MPV 10.9 7.0 - 11.0 FL LAB HEMETOLOGY METHOD 04/13/2025 12:29 PM [facility] NRBC 0.0 <1.0 % LAB HEMETOLOGY METHOD 04/13/2025 12:29 PM [facility] NRBC Absolute 0.00 <0.10 K/mcL LAB HEMETOLOGY METHOD 04/13/2025 12:29 PM [facility] Neutrophils Relative 57.0 % LAB HEMETOLOGY METHOD 04/13/2025 12:29 PM [facility] Lymphocytes Relative 32.9 % LAB HEMETOLOGY METHOD 04/13/2025 12:29 PM [facility] Monocytes Relative 5.6 % LAB HEMETOLOGY METHOD 04/13/2025 12:29 PM [facility] Eosinophils Relative 3.5 % LAB HEMETOLOGY METHOD 04/13/2025 12:29 PM [facility] Basophils Relative 0.6 % LAB HEMETOLOGY METHOD 04/13/2025 12:29 PM [facility] Immature Granulocytes Relative 0.4 % LAB HEMETOLOGY METHOD 04/13/2025 12:29 PM [facility] Neutrophils Absolute 4.57 1.50 - 7.00 K/mcL LAB HEMETOLOGY METHOD 04/13/2025 12:29 PM [facility] Lymphocytes Absolute 2.64 1.00 - 5.00 K/mcL LAB HEMETOLOGY METHOD 04/13/2025 12:29 PM [facility] Monocytes Absolute 0.45 0.20 - 1.00 K/mcL LAB HEMETOLOGY METHOD 04/13/2025 12:29 PM [facility] Eosinophils Absolute 0.28 0.00 - 0.50 K/mcL LAB HEMETOLOGY METHOD 04/13/2025 12:29 PM [facility] Basophils Absolute 0.05 0.00 - 0.20 K/mcL LAB HEMETOLOGY METHOD 04/13/2025 12:29 PM [facility] Immature Granulocytes Absolute 0.03 0.00 - 0.03 K/mcL LAB HEMETOLOGY METHOD 04/13/2025 12:29 PM [facility] Blood Venous blood specimen / Unknown Venipuncture / Unknown 04/13/2025 10:05 AM EDT 04/13/2025 10:05 AM EDT Aly Gayle MD LAB BLOOD ORDERA BLES Final Result [facility] ([facility] [address] [place] [address], [place] [phone] * Depression Screening (05/15/2024) HM Depression Screening Abstracted Historical Provider MD HEALTH MAINTENANCE Final Result * Gonorrhea/Chlamydia Screening (12/31/2022) Gonorrhea/Chla mydia Screening Abstracted Historical Provider HEALTH MAINTENANCE Final Result * HIV Screening (03/26/2022) HIV Screening Abstracted Historical Provider MD HEALTH MAINTENANCE Final Result * Pap smear (01/29/2022) 01/29/2022 Narrative HISTORICAL TESTING LAB RESULTING AGENCY - 02/09/2022 12:39 PM EDT [id number] THINPREP PAP, IMAGED: NEGATIVE FOR SQUAMOUS INTRAEPITHELIAL [...] Most Recently Relevant to Health Maintenance Insurance [facility] [employer] Care Teams [employer] Relationship Specialty Start Date End Date Aly Gayle MD [address], [place] PCP - General Internal Medicine 04/21/22
--- OUTSIDE RECORDS SUMMARY | 2025-07-11 18:37 | XMS_ITS | Patient Health Record ---
Author Organization [facility] Address [address] [place] [address] Care Team Providers Care Drafter Apprentice Name Role Phone Unknown, Primary Care Provider [...] Duration: 90 Active Vitamin D3 1.25 MG (67813 UT) Capsule 1 capsule Orally Once a [...] Notes Problem Vitamin B12 deficiency (non anemic) (41630325) B12 deficiency (E53.8) Active confirmed Problem Depression (003283328) Depression (F32.9) Active confirmed Problem Body mass index 40+ - severely obese (414632434) BMI 45.0-49.9, adult (Z68.42) Active confirmed Problem Hypothyroid (13119115) Hypothyroid (E03.9) Active confirmed Problem Vitamin D deficiency (67497841) Vitamin D deficiency (E55.9) Active confirmed Problem Elevated blood pressure (34079990) Elevated blood pressure (R03.0) Active confirmed Problem Degeneration of lumbar intervertebral disc (52984679) Lumbar degenerative disc disease (M51.36) Active confirmed Problem Morbid obesity (473786906) Severe obesity (BMI >= 40) (E66.01) Active confirmed Problem Lightheadedness (318060525) Lightheadedness (R42) Active confirmed Problem Anxiety (03982889) Anxiety (F41.9) Active confi rmed Problem Excessive thirst (54282157) Polydipsia (R63.1) Active confirmed Problem Tomasz's disease (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 Diagnostic PSG if not) 06/05/2021 Insurance Providers Payer Name Payer Address Payer Phone Subscriber Number Group Number Insured Name Patient Relationship to Insured Coverage Start Date Coverage End Date [facility] [address] [place] [phone] [id number] Coretta Canela Self - patient is the insured Medical (General) History Medical History History ICD Code Anxiety Athritis Asthma Depression Hypertension Hypothyroidism Surgical History Surgery Date(Month/Year) Hospitalization History Reason Date(Month/Year) kidney infection, PNA and sinus infectio n 08/2019
== END 2025-07-11 15:16 | disposition home or self-care (01) ==
LOC: HO.RHES 14:00
PROVIDERS: PCP Family Medicine; Visit Provider Internal Medicine Rheumatology
DX: Q79.62 Hypermobile Ehlers-Danlos syndrome (principal); M47.816 Spondylosis without myelopathy or radiculopathy, lumbar region; M17.12 Unilateral primary osteoarthritis, left knee; R21 Rash and other nonspecific skin eruption
CPT/HCPCS: 99214

== ENCOUNTER → 2025-07-11 13:59 | Outpatient (BNVA) | payer OTHER, SELFPAY | PROVIDERS: PCP Family Medicine; Visit Provider Internal Medicine Rheumatology | DX: M17.12 Unilateral primary osteoarthritis, left knee (principal); Q79.62 Hypermobile Ehlers-Danlos syndrome; M47.816 Spondylosis without myelopathy or radiculopathy, lumbar region; R21 Rash and other nonspecific skin eruption; Z71.3 Dietary counseling and surveillance; Z68.43 Body mass index [BMI] 50.0-59.9, adult | CPT/HCPCS: 99212 ==